=== PATIENT | female | born 1990 | race African-American/Black ===

== ENCOUNTER 2021-04-20 11:09 | Outpatient (REF) | payer MEDICAID, SELFPAY ==
[2021-04-20 11:25] LABS: COVID-19 Test Positive (Negative); IDNOW Serial# 16C4AD1C
== END 2021-04-20 11:10 | disposition home or self-care (01) ==
LOC: HO.LAB 11:09
PROVIDERS: Visit Provider Internal Medicine
DX: Z20.822 Contact with and (suspected) exposure to COVID-19 (principal)
CPT/HCPCS: 36415; 87635; C9803

== ENCOUNTER 2022-01-24 08:53 | Outpatient (REF) | payer MEDICAID, SELFPAY ==
[2022-01-24 10:23] LABS: Amylase 64 U/L (28-100); C Reactive Protein 1.28 mg/dL (< or = 0.50)
[2022-01-24 10:48] LABS: Erythrocyte Sedimentation Rate 14 MM/HR (0-20)
[2022-01-26 18:46] LABS: Thyroid Peroxidase Antibodies 1 IU/mL (<9)
== END 2022-01-24 08:54 | disposition home or self-care (01) ==
LOC: HO.LAB 08:53
PROVIDERS: PCP Internal Medicine; Visit Provider Internal Medicine
DX: E21.3 Hyperparathyroidism, unspecified (principal); K11.8 Other diseases of salivary glands
CPT/HCPCS: 36415; 82150; 82550; 85652; 86140; 86376

== ENCOUNTER 2022-03-03 11:55 | Emergency (ER) | payer MEDICAID, SELFPAY ==
[2022-03-03 11:58] VITALS: BP 178/108; PULSE 98; RESP 16; TEMP 36.7; O2SAT 98; BMI 38.6
[2022-03-03 12:06] VITALS: O2SAT 98
[2022-03-03 12:15] LABS: Strep A Nucleic Acid Negative (Negative)
--- NOTE | 2022-03-03 12:17 | ED_ITS ---
HPI - URI/Sore Throat General Chief Complaint: Upper Respiratory Symptoms Stated Complaint: sore throat Time Seen by Provider: 03/03/22 12:05 Source: patient Mode of arrival: ambulatory Limitations: no limitations History of Present Illness HPI Narrative: 32-year-old female here with 3 days of cough, sore throat, tactile temps. No difficulty breathing, chest pain, shortness of breath, vomiting, diarrhea, skin rash, headache, neck pain or neck stiffness. Patient took multiple COVID test at home which have been negative MD elicited complaint: fever, cough and sore throat Related Data Allergies Allergy/AdvReac Type Severity Reaction Status Date / Time clindamycin [CLINDAMYCIN] Allergy Intermediate HIVES Unverified 01/21/20 16:12 Clindamycin Allergy Unknown Hives Uncoded 05/11/19 00:00 Review of Systems Review of Systems: Yes all other systems are reviewed and are negative Constitutional: Constitutional: Reports no additional constitutional complaints, Denies body ache(s), Denies chills, Reports fever(s), Denies headache(s) and Denies weakness Eyes: Eyes: Reports no additional eye complaints and Denies change in vision ENT: Reports system reviewed and no additional complaints, except as documented, Denies dizziness, Denies headache(s), Denies nasal congestion, Denies nasal discharge, Denies neck pain and Reports sore throat Cardiovascular: Cardiovascular: Reports no additional cardiovascular complaints, Denies chest pain, Denies leg edema and Denies dyspnea Respiratory: Respiratory: Reports no additional respiratory complaints, Reports cough and Denies dyspnea Gastrointestinal: Gastrointestinal: Reports no additional gastrointestinal complaints, Denies abdominal pain, Denies diarrhea, Denies nausea and Denies vomiting Genitourinary: Genitourinary: Reports no additional female genitourinary complaints and Denies urinary incontinence Musculoskeletal: Musculoskeletal: Reports no additional musculoskeletal complaints, Denies back pain, Denies arthralgias, Denies joint swelling, Denies neck pain, Denies numbness and Denies tingling Integumentary/Breasts: Skin/Breast: Reports system reviewed and no additional complaints, except as docu and Denies rash Neurologic: Reports system reviewed and no additional complaints, except as documented, Denies Abnormal speech present, Denies dizziness, Denies headache(s), Denies numbness, Denies tingling and Denies weakness PMF Past Medical History Attestation statement: The following information was validated with the patient. Source: old records reviewed and nursing notes reviewed Social History Social History Alcohol intake: current Alcohol intake frequency: holidays/special occasions only Patient Tobacco Use Status: Never used Tobacco Use of substances other than those prescribed or required for medical reasons: No Advance Directives: No Advance Directives Information Provided: No Physical Exam Vital Signs: Vital Signs: Last Vital Signs Temp 98.0 F 03/03/22 11:58 Pulse 98 03/03/22 11:58 Resp 16 03/03/22 11:58 BP 178/108 H 03/03/22 11:58 Pulse Ox 98 03/03/22 12:06 O2 Del Method 03/03/22 12:06 BMI result Body Mass Index 38.6 Const: General: cooperative, healthy appearing, comfortable and no acute distress Orientation/consciousness: patient oriented x3 Limitations: no limitations HEENT: Head: Yes normal to inspection Ears: hearing grossly normal bilaterally and TM's normal bilaterally General nose exam: Normal external nose present Face and sinus: Yes normal facial exam Mouth: Normal oral and palatal mucosa present Throat: Yes posterior oropharynx normal, Yes tonsils normal and Yes uvula midline Eyes: General: appearance normal, both eyes and all related structures Pupils: Equal, round and reactive pupils present Neck: Neck: Yes normal visual inspection, Yes full ROM, Yes no lymphadenopathy and Yes no meningeal signs Chest: Chest palpation & inspection: normal inspection of the chest Resp: Effort & Inspection: normal respiratory effort Auscultation: clear to auscultation bilaterally Cardio: Rate: regular rate Rhythm: regular rhythm Peripheral pulses: Peripheral pulses 2+ throughout GI: Inspection: Yes normal to inspection Palpation (GI): Soft to palpation and nontender Auscultation: normal bowel sounds Back/Spine/Pelvis: Thoracic/Lumbar Spine: thoracic and lumbar spine normal to inspection Skin: General skin exam: no rashes or lesions noted Neuro: General: patient oriented x3, no meningeal signs, no focal motor deficits and normal sensation to monofilament Cranial nerves: Yes Equal, r ound and reactive pupils present Cognition (Neuro): normal cognition Speech: No Abnormal speech present Gait exam (Neuro): Normal gait present Motor exam (neuro): 5/5 motor strength present throughout Extrem: General: Yes normal to inspection Course Course Course Narrative: Testing for strep, COVID, flu, RSV are negative Likely viral syndrome Exam not consistent with strep pharyngitis Patient was discharged prior to results being resulted. I did call and speak to her over the phone. She was informed of the results. Reviewed worrisome signs and symptoms of when to return to the emergency room. Comfortable plan for discharge home. MDM - URI/Sore Throat MDM Narrative Medical decision making narrative: 32-year-old female here with cough, fever, sore throat for 3 days. Will send testing for strep, COVID, flu, RSV Medical Records Attestation: I reviewed the patient's medical records. Lab Data Attestation: I reviewed the patient's lab results. Labs: Lab Results 03/03/22 03/03/22 Range/Units 12:00 12:18 Influenza Type A (PCR) NEGATIVE (Negative) Influenza Type B (PCR) NEGATIVE (Negative) RSV RNA Qual (PCR) NEGATIVE (Negative) SARS-CoV-2 RNA (RT-PCR) NEGATIVE (Negative) S. pyogenes GrpA ARLENE Negative (Negative) Discharge Plan Discharge Clinical Impression: Viral infection Patient Disposition: Home, Self-Care Instructions: Viral Syndrome (ED) Additional Instructions: I will call you today with your results Take Motrin or Tylenol for pain or fever Increase fluids, rest Return for any worsening symptoms Referrals: Gage Diallo MD [Primary Care Provider] - 5 days (may return sooner if feeling improved ) Stand Alone Forms: Work/School Release Interventions: ED Discharge Assessment Last Done: 03/03/22 12:27 Discharge Date/Time: 03/03/22 12:27
[2022-03-03 13:02] LABS: Influenza A PCR NEGATIVE (Negative); Influenza B PCR NEGATIVE (Negative); Resp Syncy Virus RNA Qual PCR NEGATIVE (Negative); SARS COV2 PCR INHOUSE NEGATIVE (Negative)
== END 2022-03-03 12:27 | disposition home or self-care (01) ==
LOC: HO.ED 12:26
PROVIDERS: Nurse Practitioner Family; Emergency Provider Emergency Medicine; PCP Internal Medicine
DX: B34.9 Viral infection, unspecified (principal); Z79.899 Other long term (current) drug therapy; Z20.822 Contact with and (suspected) exposure to COVID-19
CPT/HCPCS: 0241U; 36415; 87651; 99283; 99284

== ENCOUNTER 2022-03-07 14:17 | Outpatient (REF) | payer MEDICAID, SELFPAY ==
--- NOTE | ~2022-03-07 | US_ITS ---
EXAMINATION: US THYROID CLINICAL INFORMATION: Hyperparathyroidism, enlarged thyroid. COMPARISON: None TECHNIQUE: Linear transducer grayscale and color Doppler examination with attention to the region of the thyroid. FINDINGS: SIZE: Measurements of the thyroid lobes and nodules are given in sagittal, anteroposterior and transverse dimensions respectively. Right Thyroid Lobe: 4.2 x 1.5 x 1.5 cm, volume 4.9 mL. Parenchyma: The gland echotexture is homogeneous. Thyroid vascularity is normal. Left Thyroid Lobe: 5.2 x 1.5 x 1.4 cm, volume 5.6 mL. Parenchyma: The gland echotexture is homogeneous. Thyroid vascularity is normal. Isthmus: 0.4 cm in maximum AP dimension. No focal thyroid nodule is seen. NODES: No lymphadenopathy is seen in the tissue surrounding the thyroid gland. US/US thyroid IMPRESSION: Normal thyroid ultrasound. No parathyroid adenoma identified.
== END 2022-03-07 14:18 | disposition home or self-care (01) ==
LOC: HO.US 14:17
PROVIDERS: Visit Provider Internal Medicine
DX: E21.3 Hyperparathyroidism, unspecified (principal)
CPT/HCPCS: 76536

== ENCOUNTER 2022-10-23 07:40 | Emergency (ER) | payer MEDICAID, SELFPAY ==
--- NOTE | ~2022-10-23 | XR_ITS ---
EXAMINATION: XR ANKLE, RIGHT CLINICAL INFORMATION: Pain post fall COMPARISON: None available. TECHNIQUE: AP, lateral, and mortise views of the right ankle. FINDINGS: Bone alignment is normal. No fracture or dislocation. Normal ankle mortise. Mild lateral soft tissue swelling. Small calcaneal spurs. XR/XR ankle RT min 3V IMPRESSION: Mild lateral soft tissue swelling. No fracture or dislocation.
[2022-10-23 07:46] VITALS: BP 150/97; PULSE 87; RESP 16; TEMP 36.9; O2SAT 99; BMI 39.0
--- NOTE | 2022-10-23 08:11 | ED_ITS ---
HPI - Extremity Injury (Lower) General Chief Complaint: Extremity Injury, Lower Stated Complaint: fall, ankle pain Time Seen by Provider: 10/23/22 07:59 Source: patient Mode of arrival: ambulatory Limitations: no limitations History of Present Illness HPI Narrative: 32 year old female with a history significant for hypertension and previous right ankle fracture presents to the emergency department today s/p mechanical fall down 3 steps last night, now complaining of right ankle pain and swelling. Patient states she doing laundry when her pants got caught on a nail, causing her to fall down 3 steps to her basement, landing on her right ankle/ foot. She was able to ambulate with pain post fall. No radiation of pain. Additionally she hit the right side of her back however denies back pain, neck pain. Denies head strike or LOC. Denies numbness, tingling, or weakness to the RLE. She took 400mg of Ibuprofen prio to arrival for pain. Not on anticoagulation. Related Data Allergies Allergy/AdvReac Type Severity Reaction Status Date / Time clindamycin [CLINDAMYCIN] Allergy Intermediate HIVES Verified 10/23/22 07:47 Clindamycin Allergy Unknown Hives Uncoded 10/23/22 07:47 Review of Systems Review of Systems: CONSTITUTIONAL: Denies weight loss, fever and chills. RESPIRATORY: Denies SOB and cough. CV: Denies palpitations no CP. GI: Denies abdominal pain, nausea, vomiting and diarrhea. MSK: Denies myalgia + right ankle pain SKIN: Denies rash and pruritus. NEUROLOGICAL: Denies headache and syncope. CONSTITUTIONAL: Denies weight loss, fever and chills. HEENT: Denies changes in vision and hearing. RESPIRATORY: Denies SOB and cough. CV: Denies palpitations no CP. GI: Denies abdominal pain, nausea, vomiting and diarrhea. : Denies dysuria and urinary frequency. SKIN: Denies rash and pruritus. NEUROLOGICAL: Denies headache and syncope. PSYCHIATRIC: Denies recent changes in mood. Denies anxiety and depression. All other ROS are negative unless in HPI Yes all other systems are reviewed and are negative PMFSH Past Medical History Attestation statement: The following information was validated with the patient. Source: old records reviewed and nursing notes reviewed Social History Social History Alcohol intake: current Alcohol intake frequency: holidays/special occasions only Patient Tobacco Use Status: Never used Tobacco Advance Directives: No Advance Directives Information Provided: Yes Patient : No (tubal ligation) Physical Exam Vital Signs: Vital Signs: Last Vital Signs Temp 98.4 F 10/23/22 07:46 Pulse 87 10/23/22 07:46 Resp 16 10/23/22 07:46 BP 150/97 H 10/23/22 07:46 Pulse Ox 99 10/23/22 07:46 O2 Del Method Room Air 10/23/22 07:46 BMI result Body Mass Index 39.0 Vital signs notable for elevated blood pressure likely secondary to pain. GEN: Well developed, no acute distress, alert, oriented HEENT: Normocephalic, atraumatic, normal external ears, nose appears normal Eyes: Normal to appearance Neck: Supple, no lymphadenopathy Respiratory: Talks in complete sentences, no respiratory distress Extremities: No clubbing, cyanosis, or ecchymosis.. No obvious deformity. Diffuse edema noted to the right ankle, tender to palpation over the lateral malleolus. Neurovascularly intact, 2+ dorsal pedis and posterior tibialis pulse, less than 2nd capillary refill Neurologic: No focal neurologic deficits, cranial nerves 2-12 intact, gait normal Skin: No rash Course Course Course Narrative: Presents with 1 day of right ankle pain and swelling. Patient stable, tenderness and swelling over the lateral malleolus, neurovascularly intact distally. Xrays showed no evidence of acute fracture. Discussed imaging reslults with patient along with RICE therapy. Patient provided with an air cast and crutches along with a referral for outpatient ortho followup. Patient expresses understanding and agreement to the plan. I feel that the patient is safe and stable for discharge. Medical Decision Making Medical Decision Making MDM Narrative: 32 year old female presents s/p mechanical fall with right ankle pain/ swelling. Vital signs notable for elevated bp likely secondary to pain. Physical exam significant for diffuse edema of the right ankle and tenderness to palpation over the lateral malleolus. Neurovascularly intact distally. Clinical suspicion for ankle sprain/ strain vs fracture Low suspicion for compartment syndrome, neurovascular injury Low suspicion for intracranial hemorrhage as patient denies head strike, no focal deficits. Plan: pain control, ankle radiographs, re-evaluate Differential Diagnosis Differential Diagnoses: The differential diagnosis associated with the pres entation includes ankle sprain, strain, fracture, compartment syndrome, neurovascular injury Independent Interpretation I performed an independent interpretation of an: Plain X-Ray (Right ankle- no acute traumatic injury) Radiology Impression Discussion of test interpretation with radiology: I have reviewed the radiologist's reading. Radiologist Impression: XR ankle RT min 3V IMPRESSION: Mild lateral soft tissue swelling. No fracture or dislocation. Prescription Management I considered prescription management with: Pain Medication Critical Care Time Critical Care Time Critical Care Time: No Discharge Plan Discharge Clinical Impression: Ankle sprain and strain Patient Disposition: Home, Self-Care Instructions: Ankle Sprain (ED), Crutch Instructions (ED), Ankle Stirrup Splint (ED), R.I.C.E. Treatment (ED) Additional Instructions: The xray of your right ankle is reassuring and does not show any evidence of fracture. The results of your xray have been discussed with you. Take tylenol as needed for pain. Rest, ice, and elevate the ankle to help with swelling and pain. Please follow up with orthopedics in one week. Referral has been provided. Referrals: Imelda Nava PA-C [Phys[facility] [employer] [facility]] - (right ankle pain/ swelling s/p mechanical fall, no evidence of acute fracture) Stand Alone Forms: Work/School Release
== END 2022-10-23 09:13 | disposition home or self-care (01) ==
PROVIDERS: Emergency Provider Emergency Medicine; PCP Internal Medicine
DX: S93.401A Sprain of unspecified ligament of right ankle, initial encounter (principal); M25.571 Pain in right ankle and joints of right foot; M25.471 Effusion, right ankle; W10.9XXA Fall (on) (from) unspecified stairs and steps, initial encounter; Y93.9 Activity, unspecified; Y92.9 Unspecified place or not applicable; Y99.9 Unspecified external cause status
CPT/HCPCS: 29515; 73610; 99283; 99284

== ENCOUNTER 2023-05-29 11:14 | Outpatient (REF) | payer MEDICAID, SELFPAY ==
[2023-05-29 13:01] LABS: MANUAL DIFF FLAG NO
[2023-05-29 13:04] LABS: Basophils Percent Auto 0.3 % (0-2); Eosinophils Absolute Auto 0.1 X10*3/uL (0.0-0.4); Eosinophils Percent Auto 0.5 % (0-4); Hematocrit 36.7 % (37.0-47.0); Imm Gran Abs Auto 0.01 X10*3/uL (0.00-0.03); Imm Gran Pct Auto 0.1 % (0.0-0.4); Lymphocytes Absolute Auto 3.2 X10*3/uL (1.2-4.9); Lymphocytes Percent Auto 30.3 % (20-40); Mean Corpuscular Hemoglobin 22.7 pg (27.0-33.0); Mean Corpuscular Volume 75.8 fL (80.0-98.0); Mean Platelet Volume 9.1 fL (9.4-12.3); Monocytes Absolute Auto 0.5 X10*3/uL (0.1-1.2); Monocytes Percent Auto 4.7 % (2-11); Neutrophils Absolute Auto 6.7 x10*3/uL (2.0-8.3); Neutrophils Percent Auto 64.1 % (45-73); Platelet Count 433 X10*3/uL (160-400); Red Blood Count 4.84 X10*6/uL (4.20-5.50); White Blood Count 10.4 X10*3/uL (4.8-10.8)
[2023-05-29 13:41] LABS: Alanine Aminotransferase 16 U/L (0-31); Albumin Level 4.2 g/dL (3.5-5.0); Alkaline Phosphatase 62 U/L (39-117); Anion Gap 13 (12-20); Aspartate Amino Transferase 18 U/L (5-31); Bilirubin Total 0.3 mg/dL (0.0-1.0); Blood Urea Nitrogen 10 mg/dL (9-16); Calcium 9.2 mg/dL (8.4-10.2); Carbon Dioxide 23 mmol/L (22-29); Chloride 106 mmol/L (96-108); Cholesterol 129 mg/dL (<200); Estimated Glomerular Filt Rate > 60; Glucose Random 102 mg/dL (60-115); Sodium 138 mmol/L (135-145); Total Protein 7.8 g/dL (6.5-8.0)
[2023-05-29 14:08] LABS: Vitamin B12 1429 pg/mL (200-900)
[2023-05-31 22:53] LABS: TS Negative Control Passed; TS Panel A 0; TS Panel B 1; TS Positive Control Passed; TSpotTB Negative (Negative)
== END 2023-05-29 11:15 | disposition home or self-care (01) ==
LOC: HO.10HDL 11:14
PROVIDERS: Visit Provider Internal Medicine
DX: Z02.1 Encounter for pre-employment examination (principal); I10 Essential (primary) hypertension; K21.9 Gastro-esophageal reflux disease without esophagitis; Z98.84 Bariatric surgery status
CPT/HCPCS: 36415; 80053; 82465; 82607; 85025; 86481

== ENCOUNTER 2024-12-25 15:19 | Outpatient (AMB) | payer OTHER, SELFPAY ==
--- OUTSIDE RECORDS SUMMARY | 2024-12-25 15:22 | XMS_ITS | Clinical Summary ---
Author Organization [facility] Address [address] [place] [phone] Phone Care Team Providers Care Skiver Counter Name Role Phone Gage Diallo MD Primary Care Provider Allergies Active Allergy Reactions Criticality Noted Date Comments Clindamycin Hcl Hives 01/15/2022 Medications acetaminophen (TYLENOL) 325 mg tablet Take 650 mg by mouth every 6 (six) hours as needed for mild pain. Active losartan (COZAAR) 25 MG tablet Take 50 mg by mouth daily. Active hydrALAZINE (APRESOLINE) 10 MG tablet Take 20 tablets by mouth 2 (two) times a day. 4 Active calcium carbonate 500 mg (200 mg elemental) chewable tablet Take 1 tablet by mouth daily as needed for heartburn. Active pantoprazole (PROTONIX) 40 MG tabletIndication s:Gastroesophage al reflux disease without esophagitis Take 1 tablet (40 mg total) by mouth daily. 30 tablet 6 4 Active cholecalciferol (VITAMIN D3) 25 MCG (1,000 unit) tablet Take 1,000 Units by mouth daily. Active vitamin A 11408 UNIT capsule TAKE 2 CAPSULES (20,000 UNITS TOTAL) BY MOUTH DAILY. 60 capsule 4 Active Active Problems Problem Noted Date Diagnosed Date Preoperative examination 08/30/2023 Class 1 obesity due to exces s calories without serious comorbidity with body mass index (BMI) of 34.0 to 34.9 in adult 08/30/2023 Assessment & Plan (08/30/2023 2:25 PM EDT): This is a 33-year-old woman who is now doing the medical component the program towards weight loss. The patient had a sleeve gastrectomy in April 2019. She is recently lost almost 40 pounds since February on her own. She restarted the program today. She does report having heartburn but has never had any other antireflux medication besides Nexium. I have discontinued her Nexium and ordered pantoprazole instead. The patient is not eating regularly she is skipping several meals. Have asked her to avoid skipping meals and to consume 70 to 80 g of protein daily by adding 2 protein shakes to her current meals. She is not eating enough protein and I have asked her to eat chicken or fish 2 to 4 ounces as she is able to at least once a day. I have also asked her to exercise at least 3 times a week for 45 minutes encompassing both cardiovascular exercise and strength training. I have ordered her annual nutrition labs and she will have those drawn today. She will follow-up with me again in 4 weeks timeframe. Patient is not a candidate for any bariatric revision at this time. She will continue to work through the medical component of the program in an effort to lose the residual weight. She has a personal goal of 150 to 160 pounds for weight. BMI 39.0-39.9,adult 03/12/2022 Assessment & Plan (04/09/2022 11:46 AM EST): This is a 32-year-old lady who underwent a laparoscopic sleeve gastrectomy with poor weight loss and poor follow-up postoperatively. Patient had surgery with an outside surgeon and facility and was lost to follow-up. Patient is now doing well with weight loss over the past month and she is following the eating plan and has started exercise plan. She is interested in conversion of her sleeve gastrectomy to Yahaira-en-Y gastric bypass. The patient has completed blood work but has not done chest x- ray or EKG as I did not order them yet. The patient has been seeing the dietitian but needs to reschedule her last appointment. She also has not had an appointment with behavioral health as of yet as I was not sure that the patient was going to be compliant with the medical component of the program. Patient is now doing well following the eating plan is being compliant over the past month. I will follow- up with her again in 4 weeks timeframe. If the patient continues to be compliant we will plan to perform a conversion of her sleeve gastrectomy to a Yahaira-en-Y gastric bypass to help with the patient's reflux and help with renewed weight loss. Patient will continue current eating plan although she will avoid using kind bars as a protein bar source. She will continue current water intake and increase resistance training in her workouts. She will continue current medications as reviewed. She is not stable and is considered obese. Assessment & Plan (03/12/2022 10:45 AM EST): This is a 32-year-old lady who underwent sleeve gastrectomy about 3 years ago and has done relatively poorly with weight loss. She has been in our program for about 2 months without any significant weight loss and only has gained weight during the program. She has not been following the eating plan that was given to her and has not added formalized exercise which was recommended. She is drinking plenty of water. I went over the eating plan again with the patient and asked her to stick strictly to the 2 protein meal replacements per day and 3 to 4 ounces of proteins with vegetables and 1/2 cup of carbohydrate once per day. I have asked the patient to get up earlier at 5:30 AM to add 40 minutes of exercise 4 times a week of the cardiovascular nature. I have told the patient that she is currently not a candidate for any revisional surgery as she is not following the plan that has been set for her. She would need to lose 22 pounds from this current weight of 223 noted to be a surgical weight loss candidate even if she was following the weight management program guidelines. I currently do not believe that this patient needs a revisional surgery I believe that she needs to institute the lifestyle changes that have been given to her. I believe her reflux would improve if she was eating healthier and exercising and losing the weight by lifestyle changes. In an effort to help the patient be more motivated we will see her every 2 weeks alternating between myself and the dietitian. I have asked the patient to take our 5 nutrition classes as a refresher and answer the questions. I have also required that she attends our support groups on a monthly basis. I will see the patient again in 4 weeks timeframe she will follow-up with the dietitian in 2 weeks. She is not stable is considered morbidly obese. She will continue current medications as reviewed. Status post sleeve gastrectomy 03/12/2022 Gastroesophageal reflux disease without esophagi tis 02/12/2022 Class 1 obesity due to exces s calories without serious comorbidity with body mass index (BMI) of 33.0 to 33.9 in adult 01/15/2022 Assessment & Plan (09/27/2023 3:25 PM EDT): This is a 33-year-old woman who is doing well during the medical component the program. She has a history of sleeve gastrectomy and is now back on track in terms of weight loss. She will continue to increase her water intake to a goal of 64 ounces. She should continue to increase her intensity and frequency of exercise. She will increase the amount of actual food that she is eating and decrease amount of shakes over the course of time. She will continue her medications as reviewed. She is not stable and is considered obese. She will follow-up with me again in 6 weeks timeframe. Assessment & Plan (02/12/2022 10:24 AM EDT): This is a 31-year-old lady who underwent a laparoscopic sleeve gastrectomy several years ago with an outside bariatric surgeon. She had relatively poor weight loss after having weight loss surgery as she did not have great follow-up postoperatively. The patient now starts this program in an effort to have renewed weight loss. She is having reflux which is not well controlled. I have ordered Nexium 40 mg to be taken on a daily basis. Patient was told to avoid eating for 2 to 3 hours prior to bedtime and to elevate the head of her bed. Patient was told to continue current water intake. She will increase intensity of her exercise and frequency. I have asked her to exercise at least 4 times a week for 30 minutes and to use the resistance training or hill training modality on the treadmill and bike or interval training. I will follow-up with her again in 4 weeks timeframe. She is not stable is considered obese. She will follow-up with her primary care doctor regarding her blood pressure and we will discuss how well Nexium is helping her with her reflux when she follows up. Patient will continue current medications as reviewed. Assessment & Plan (01/15/2022 12:03 PM EDT): This is a 31-year-old lady who underwent a laparoscopic sleeve gastrectomy almost 3 years ago and who has had significant weight gain in the past year's timeframe since she has stopped following up with her bariatric surgeon. Patient would like to restart weight loss but would like to start at a different program. Patient believes she still has good restriction but has fallen off track in terms of her lifestyle changes. I have provided her with a new eating plan which will include 2 protein meal replacements such as Faroese yogurt, cottage cheese, protein shake, or protein bar at 9 AM and 3 PM daily. At 12 PM and 6 PM daily the patient will consume 3 to 4 ounces of protein with 4 ounces of vegetables or small salad with not more than 2 tablespoons of a Montenegrin or vinaigrette dressing. At the 6 PM meal the patient may have half cup of carbohydrate. Patient may have an optional piece of fruit at 8 PM. She should stop eating after 8 PM. Patient was encouraged to continue to exercise at the gym at least 4 times a week for 40 minutes. She was also told to change up her cardiovascular workouts every 3 weeks to prevent a stall and weight loss. The patient will continue to consume full 64 ounces of water on a daily basis. She will discontinue use of any beverages with calories. I have ordered blood work to check her vitamin levels and nutritional labs. The patient will follow up with a dietitian for consultation in 2 weeks and follow-up with me again in 4 weeks timeframe. Patient will continue current medications as reviewed. She is not stable and is considered obese. I spent 57 minutes with this patient which included documentation. Intestinal malabsorption following gastrectomy 0 01/15/2022 Family History Medical History Relation Comments Lung cancer Father Lung cancer Maternal Grandfather Cerebral aneurysm Maternal Grandmother Lung disease Mother Pulmonary embolism Mother Diabetes type II Paternal Grandmother Hypertension Paternal Grandmother Stroke Paternal Grandmother Relation Status Comments Brother Alive Father Maternal Grandfather Maternal Grandmother Mother Paternal Grandfather Paternal Grandmother Social History Tobacco Use Types Packs/Day Years Used Date Smoking Tobacco: Never Smokeless Tobacco: Never Tobacco Cessation:Counseling Given: Not Answered Alcohol Use Standard Drinks/Week Comments Yes 0 (1 standard drink = 0.6 oz pur e alcohol) 2 wine coolers per month Education Answer Date Recorded Are you interested in more education? Not on marcos e 09/01/2022 Are you concerned about learning? Not on file 09/01/2022 No 09/01/2022 No 09/01/2022 Digital Access Answer Date Recorded No 10/02/2022 No 10/02/2022 Reliable internet access at home? Not on file 10/02/2022 Device with a working camera? 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 Not on file Not on file Not on file Last Filed Vital Signs Vital Sign Reading Time Taken Comments Blood Pressure 130/90 09/27/2023 3:00 PM EDT Pulse 102 09/27/2023 3:00 PM EDT Temperature 36.9 C (98.4 F) 09/27/2023 3:00 PM EDT Respiratory Rate - - Oxygen Saturation 99% 09/27/2023 3:00 PM EDT Inhaled Oxygen Concentration - - Weight 84.6 kg (186 lb 6.4 oz) 09/27/2023 3:00 P M EDT Height 160 cm (5' 2.99 ) 09/27/2023 3:00 PM EDT Body Mass Index 33.03 09/27/2023 3:00 PM EDT Plan of Treatment Health Maintenance Due Date Last Done Comments Adult Td,Tdap Booster 1989 DEPRESSION SCREENING 2001 HEPATITIS C SCREENING 2007 HIV ONE-TIME SCREENING (18-6 5 YEARS) 2007 PAP SMEAR 2010 COVID-19 VACCINE (2023-2 5 season) 2024 CREATININE LEVEL 08/29/2024 08/30/2023, 01/15/2022 POTASSIUM LEVEL 08/29/2024 08/30/2023, 01/15/2022 SCREENING FOR DIABETES 08/29/2026 , 08/30/2023 SMOKING STATUS SCREENING (On ce After 26 Yrs) Completed 09/27/2023 HEPATITIS A VACCINES Aged Out No long er eligible based on patient's age to complete this topic HIB VACCINES Aged Out No longer eligi ble based on patient's age to complete this topic MENINGOCOCCAL VACCINES (ACWY) Aged Out No longer eligible based on patient's age to complete this topic MENINGOCOCCAL VACCINES (B) Aged Out N o longer eligible based on patient's age to complete this topic PNEUMOCOCCAL VACCINES (0-49 years) Aged Out No longer eligible b ased on patient's age to complete this topic Medical Devices Not on file Procedures Procedure Name Priority Date/Time Associated Diagnosis Comments COMPREHENSIVE METABOLIC PANEL Routine 08/30/2023 3:00 PM EDT Intestinal malabsorption following gastrectomy from Last 3 Months or Most Recently Relevant to Health Maintenance Results * Comprehensive metabolic panel (08/30/2023 3:00 PM EDT) SODIUM 142 133 - 146 mmol/L [facility] POTASSIUM 3.8 3.3 - 5.1 mmol/L [facility] CHLORIDE 106 96 - 108 mmol/L [facility] CO2 21 21 - 35 mmol/L [facility] BUN 8 6 - 19 mg/dL [facility] CREATININE 0.60 0.5 - 1.5 mg/dL [facility] GLUCOSE 93 70 - 99 mg/dL [facility] ALBUMIN 4.3 3.9 - 4.8 g/dL [facility] TOTAL PROTEIN 7.6 6.5 - 8.0 g/dL [facility] CALCIUM 9.1 8.4 - 10.3 mg/dL [facility] ALKALINE PHOSPHATASE 69 39 - 117 U/L [facility] TOTAL BILIRUBIN 0.5 0.0 - 1.2 mg/dL [facility] AST 20 0 - 37 U/L [facility] ALT <5 0 - 40 U/L [facility] GLOBULIN 3.3 1 - 4.8 g/dL [facility] EGFR >120 >59 mL/min/1.7 3m2 [facility] Comment:Estimated glomerular filtration rate calculated using the CKD-EPI refit equation. ANION GAP 19 10 - 20 mmol/L [facility] Blood 08/30/2023 3:00 PM EDT 08/30/2023 3:05 PM EDT Marcella Simmons MD LAB BLOOD ORDERABLES Final Result [facility] [address] [place] [id number] from Last 3 Months or Most Recently Relevant to Health Maintenance Insurance [address] [address] [address] [place] [address] [place] [address] [facility] Care Teams Skiver Counter Relationship Specialty Start Date End Date Gage Diallo MD [address] [place] [address] [place] [id number] PCP - General Internal Medicine 12/26/21 Additional Source Comments The information contained in this document represents components of the legal health record. It is not the complete legal health record.[facility]
--- NOTE | 2024-12-25 15:24 | A.OFFPC_ITS ---
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 Accompanied by: Self / Same As Patient Allergies clindamycin (CLINDAMYCIN) Allergy (Intermediate, Verified 12/25/24 15:24) HIVES Clindamycin Allergy (Unknown, Uncoded 10/23/22 07:47) Hives Medication List - Last Reconciled 12/25/24 by LILIANE Garcia trazodone 50 mg PO BEDTIME PRN Tobacco use date assessed: 12/25/24 HPI HPI Comments History of Present Illness Details 34-year-old female with history of gener alized anxiety disorder, ADHD, severe obesity with BMI greater than 36 presents to the office today for management of multiple complaints and for annual physical exam as well as to establish care. She currently lives at home with her and 4 children. She is currently employed and does enjoy her job endorses a lot of work-related stress. She does not drink any alcohol. No history of cigarette smoking. No drugs or marijuana. Concerns: Severe obesity-BMI greater than 36. Did undergo gastric sleeve ectomy 6 years ago. She had been doing well but then began gaining weight again and has since been gaining and losing weight. Reports she feels stuck. She most recently saw Dr. Simmons about 1.5 years ago. Should be interested in seeing weight management again ADHD-had been on Ritalin as a child but has not been on medications in quite katlyn e time. She endorses difficulty with concentration. She is irritable and has difficulty remembering things. Tells me that she will walk into a room and forget why she is there and has difficulty completing tasks Insomnia-she has been taking melatonin but would not keep her asleep. She does go to bed around 11:00 but though some nights she is able to fall asleep often feels her body is restless Swelling right ankle-history of ORIF years ago. Has noted swelling and pain ascending stairs. She is able to ambulate Menorrhagia-reports very heavy periods, will soak through a tampon in 1.5 hours. She will bleed for 9 days. Does not have an established lens maker. Last Pap smear was at [facility] last year Severe obestiy s/p sleeve 6 years ago. Had been going fine but started gaining weight again. Has been losing and gaining weight, feels stuck. Active walking and at the gym. Not overeating, but does eat the wrong things per her report. Had been following with Dr. Jose Difficulty with concentration. Irritable, difficulty remembering things. Walks into room and forgets why she is there. Not completing tasks. Insomnia- taking melatonin would not keep her asleep. Goes to bed around 10-11 but has difficulty falling asleep, but body is restless. Good sleep hygeine. Health maintenance: Overdue for lens maker exam. Pap smear up-to-date ROS: General: No fevers, malaise, unintentional weight loss HEENT: No blurred vision, diplopia. No sore throat, nasal congestion, rhinorrhea, sinus pain, ear pain. No hearing loss Neck - no adenopathy Cardiovascular: No chest pain, palpitations, or leg edema Respiratory: No shortness of breath, wheezing, cough Breast: No pain, palpable lumps, nipple inversion GI: No dysphagia, odynophagia, globus sensation. No abdominal pain, nausea, vomiting, diarrhea, constipation, melena, hematochezia : No dysuria, hematuria, increased urinary frequency, decreased urinary output. 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 No SI Skin: No rashes or lesions EXAM: Constitutional - Awake and Alert, No apparent distress Eyes - PERRLA, EOMI. Anicteric Ears - external ears normal, canals clear, TMs intact and pearly méndez with good cone of light Nose- septum midline, nares clear, no sinus tenderness Mouth/throat- mucosa moist, tongue and uvula midline, no erythema/edema or tonsillar adenopathy. Neck-trachea midline, thyroid symmetric without palpable nodules, no adenopathy Cardiovascular - S1S2, RRR, No edema Respiratory - Normal lung expansion, Normal respiratory effort, No respiratory distress, CTA bilaterally Gastrointestinal - NT / ND; +BS; No rebound or guarding - No CVA tenderness Extremities - no calf tenderness bilaterally, no swelling Musculoskeletal - Normal inspection, normal ROM. Mild swelling of the right lateral malleolus Skin - Warm/Dry, no concerning lesions Neurological - Alert & oriented x3, CN II-XII in tact, 5/5 strength BUE and BLE, 2+ patellar reflexes, sensation intact Psychological - Appropriate affect [facility] Medical History (Updated 12/25/24 @ 18:51 by LILIANE Garcia) Work-related stress Generalized anxiety disorder ADHD Severe obesity Social History Alcohol intake: current Alcohol intake frequency: holidays/special occasions only Patient Tobacco Use Status: Never used Tobacco e-Cigarette/Vaping Use: Never Used Questionnaire PHQ-9 Over the last 2 weeks, how often have you been bothered by any of the following problems? 1. Little interest or pleasure in doing things: several days 2. Feeling down, depressed, or hopeless: several days 3. Trouble falling or staying asleep, or sleeping too much: more than half the days 4. Feeling tired or having little energy: more than half the days 5. Poor appetite or overeating: several days 6. Feeling bad about yourself - or that you are a failure or have let yourself or your family down: more than half the days 7. Trouble concentrating on things, such as reading the newspaper or watching television: nearly every day 8. Moving or speaking so slowly that other people could have noticed. Or the opposite - being so fidgety or restless that you have been moving around a lot more than usual: not at all 9. Thoughts that you would be better off or of hurting yourself in some way: not at all Total score: 12 Source: Developed by Drs. Vincent Roman, Aura Samaniego, Alistair Ta and colleagues, with an educational edd from [employer]. Thrive Questionnaire Date Thrive assessed: 12/25/24 I am a: Patient Within the past 12 months, did the food you bought not last and you didn't have the money to get more?: Never true Within the past 12 months, did you worry whether your food would run out before you got money to buy more?: Never true Do you have trouble paying for medicines?: No Do you have trouble getting transportation to medical appointments?: No Do you have trouble paying your heating and electricity bill?: No Do you have trouble taking care of your child, family member or friend?: No Do you have trouble with day-to-day activities such as bathing, preparing meals, shopping, managing finances, etc.?: No Are you currently unemployed and looking for a job?: No Are you interested in more education?: No THRIVE Score: 0 AUDIT C Alcohol Use Questionnaire (AUDIT-C) 1. How often do you have a drink containing alcohol?: Monthly or less 2. How many drinks containing alcohol do you have on a typical day when you are drinking?: 1 or 2 Total Score: 1 GABY-7 AMB Questionnaire GABY-7 Date GABY - 7 assessed: 12/25/24 Feeling nervous, anxious, or on edge: 2 = More than half the days Not being able to stop or control worryin = Several days Worrying too much about different things: 1 = Several days Trouble relaxin = More than half the days Being so restless that it is hard to sit still: 1 = Several days Becoming easily annoyed or irritable: 3 = Nearly every day Feeling afraid as if something awful might happen: 2 = More than half the days Total GABY-7 score (0-4 normal; 5-9 mild; 10-14 moderate; 15-21 severe): 12 Source: Developed by Drs. Vincent Roman, Aura Samaniego, Alistair Ta and colleagues, with an educational edd from [employer]. Physical exam (Primary Care) Vital Signs: Last Vital Signs Temp 98.1 F 12/25/24 15:28 Pulse 80 12/25/24 15:28 Resp 17 12/25/24 15:28 BP 130/80 12/25/24 15:28 Pulse Ox 98 12/25/24 15:28 Oxygen Delivery Method Room Air 12/25/24 15:28 BMI result Body Mass Index 36.5 Tobacco/Smoking Status: Tobacco use Status Tobacco use date assessed 12/25/24 12/25/24 15:31 Patient Tobacco Use Status Never used Tobacco 12/25/24 15:31 e-Cigarette/Vaping Use Never Used 12/25/24 15:31 PHQ-9: PHQ-9 Score PHQ-9: Total score 12 12/25/24 16:13 Thrive Assessment: Date of Thrive Assessment Date Thrive assessed 12/25/24 12/25/24 16:13 Coding Level of Care Code Est Pt Prev Care [id number]) Diagnoses Routine medical exam Z00.00 Severe obesity E66.01 ADHD F90.9 Menorrhagia N92.0 Assessment & Plan Assessment & Plan (1) Routine medical exam: Code(s): Z00.00 - Encounter for general adult medical examination without abnormal findings Category: Medical Plan: Plan as below (2) Severe obesity: Code(s): E66.01 - Morbid (severe) obesity due to excess calories Category: Medical Plan: Referred to weight management. Continue weight loss efforts (3) ADHD: Code(s): F90.9 - Attention-deficit hyperactivity disorder, unspecified type Category: Medical Plan: Question this is related to insomnia issues. Will trial trazodone. If symptoms persist, can consider additional medication (4) Menorrhagia: Code(s): N92.0 - Excessive and frequent menstruation with regular cycle Category: Medical Plan: Check CBC. Referred to lens maker Plan Routine screening labs as ordered below Continue with screening mammograms, Pap smears, colonoscopies Continue following for annual skin exams and use sun protection Annual eye exams Wear seat belt in car Recommend regular exercise and healthy diet Orders: Orders Basic Metabolic Panel Today E66.01 - Morbid (severe) obesity due to excess calories, F41.1 - Generalized anxiety disorder, F90.9 - Attention-deficit hyperactivity disorder, unspecified type, Z00.00 - Encounter for general adult medical examination without abnormal findings, Z56.6 - Other physical and mental strain related to work Complete Blood Count Auto Diff Today E66.01 - Morbid (severe) obesity due to excess calories, F41.1 - Generalized anxiety disorder, F90.9 - Attention-deficit hyperactivity disorder, unspecified type, Z00.00 - Encounter for general adult medical examination without abnormal findings, Z56.6 - Other physical and mental strain related to work Lipid Panel Today E66.01 - Morbid (severe) obesity due to excess calories, F41.1 - Generalized anxiety disorder, F90.9 - Attention-deficit hyperactivity disorder, unspecified type, Z00.00 - Encounter for general adult medical examination without abnormal findings, Z56.6 - Other physical and mental strain related to work Liver Panel Today E66.01 - Morbid (severe) obesity due to excess calories, F41.1 - Generalized anxiety disorder, F90.9 - Attention-deficit hyperactivity disorder, unspecified type, Z00.00 - Encounter for general adult medical examination without abnormal findings, Z56.6 - Other physical and mental strain related to work Hemoglobin A1c Today E66.01 - Morbid (severe) obesity due to excess calories, F41.1 - Generalized anxiety disorder, F90.9 - Attention-deficit hyperactivity disorder, unspecified type, Z00.00 - Encounter for general adult medical examination without abnormal findings, Z56.6 - Other physical and mental strain related to work TSH reflex Free T4 Today E66.01 - Morbid (severe) obesity due to excess calories, F41.1 - Generalized anxiety disorder, F90.9 - Attention-deficit hyperactivity disorder, unspecified type, Z00.00 - Encounter for general adult medical examination without abnormal findings, Z56.6 - Other physical and mental strain related to work Vitamin D 25-OH Total Today R51.9 - Headache, unspecified Vitamin B12 Today R51.9 - Headache, unspecified 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
[2024-12-25 15:28] VITALS: BP 130/80; PULSE 80; RESP 17; TEMP 36.7; O2SAT 98; BMI 36.5
== END 2024-12-25 16:08 | disposition home or self-care (01) ==
LOC: HO.HMCHD 15:20
PROVIDERS: PCP Internal Medicine; Visit Provider Physician Assistant
DX: Z00.00 Encounter for general adult medical examination without abnormal findings (principal); E66.01 Morbid (severe) obesity due to excess calories; F90.9 Attention-deficit hyperactivity disorder, unspecified type; N92.0 Excessive and frequent menstruation with regular cycle

== ENCOUNTER → 2024-12-25 15:19 | Outpatient (BNVA) | payer OTHER, SELFPAY | PROVIDERS: PCP Internal Medicine; Visit Provider Physician Assistant | DX: Z00.00 Encounter for general adult medical examination without abnormal findings (principal); E66.01 Morbid (severe) obesity due to excess calories; Z68.36 Body mass index [BMI] 36.0-36.9, adult; F90.9 Attention-deficit hyperactivity disorder, unspecified type; N92.0 Excessive and frequent menstruation with regular cycle; G47.00 Insomnia, unspecified; M25.471 Effusion, right ankle; Z13.39 Encounter for screening examination for other mental health and behavioral disorders; Z13.30 Encounter for screening examination for mental health and behavioral disorders, unspecified | CPT/HCPCS: 99395 ==

== ENCOUNTER 2025-01-22 08:04 | Outpatient (AMB) | payer OTHER, SELFPAY ==
--- OUTSIDE RECORDS SUMMARY | 2025-01-19 10:30 | XMS_ITS | Encounter Summary ---
Author Organization [facility] Address [address] [place] [address] [place] [address] Phone Care Team Providers Care Private Security Guard Name Role Phone Gage Diallo MD Primary Care Provider Reason for Visit * Consultation (Routine) - Pending Review Specialty Diagnoses / Procedures Referred By Marcos perez Referred To Contact General Surgery Procedures BARIATRIC FOLLOW UP Gage Diallo MD [address] [place] [address] [facility] [place] [address] Phone: tel: fax: Marcella Simmons MD [address] [place] [id number] Phone: tel: fax: [email or web address] Referral ID Status Reason Start Date Expiration Date V isits Requested Visits Authorized [id number] Pending Review 01/19/2025 6 1 Encounter Details Date Type Department Care Team (Latest Contact Info) Description 01/19/2025 10:30 AM EDT Office Visit [facility] General Surgical Care [address] [place] [address] [place] [address] Marcella Simmons MD [address] [place] [phone] [email or web address] Intestinal malabsorption following gastrectomy (Primary Dx); Class 2 severe obesity due to excess calories with serious comorbidity and body mass index (BMI) of 36.0 to 36.9 in adult; Gastroesophageal reflux disease without esophagitis; Status post laparoscopic sleeve gastrectomy; Bariatric surgery status Social History Tobacco Use Types Packs/Day Years [...] file Not on file Not on file documented as of this encounter Last Filed Vital Signs Vital Sign Reading Time Taken Comments Blood Pressure 146/98 01/19/2025 10:00 AM EDT Pulse 91 01/19/2025 10:00 AM EDT Temperature 36.6 C (97.8 F) 01/19/2025 10:00 AM EDT Respiratory Rate - - Oxygen Saturation 99% 01/19/2025 10:00 AM EDT Inhaled Oxygen Concentration - - Weight 92.4 kg (203 lb 9.6 oz) 01/19/2025 10:00 AM EDT Height 160 cm (5' 2.99 ) 01/19/2025 10:00 AM EDT Body Mass Index 36.08 01/19/2025 10:00 AM EDT documented in this encounter Progress Notes * Marcella Simmons MD - 01/19/2025 10:30 AM EDT Subjective: Patient ID: This is a 34-year-old patient who has a history of laparoscopic sleeve gastrectomy at [facility] with another bariatric surgeon for weight management. Patient was last seen September 2023 in our program and was 186 pounds. Patient has gained 17.2 pounds since the last visit September 2023. Patient is consuming 120-160 ounces of water on a daily basis. They are exercising 3-4 times weekly by performing 30-45 mins of strength training with weight training followed by 15 mins of cardio vascular exercise on stationary bike or treadmill . She is not taking the bariatric vitamin. They deny any fever, chills, shortness of breath, chest pain. 24-hour dietary recall: 8 am: 3 hard boiled eggs 1 pm: chicken salad on 2 lettuce wrap 6 pm: salmon with broccoli and cauliflower rice Vitals: 01/19/25 1000 BP: (!) 146/98 Pulse: 91 Temp: 36.6 ??C (97.8 ??F) SpO2: 99% Height 5 foot 3 inches Weight 203.6 pounds Fat percentage 45.7% Fat mass 93 pounds Fat-free mass 110.6 pounds Muscle mass 105 pounds BMR 1580 Visceral fat 10 BMI 36.1 Review of Systems Constitutional: Negative for chills, fatigue and fever. Eyes: Negative for wears glasses. Respiratory: Negative for cough, shortness of breath and wheezing. Cardiovascular: Negative for chest pain and leg swelling. Gastrointestinal: Positive for heartburn. Negative for abdominal distention, abdominal pain, constipation, diarrhea, nausea and vomiting. Genitourinary: Negative for problems with urination and dysuria. Psychiatric/Behavioral: Positive for dysphoric mood and sleep disturbance. The patient is nervous/anxious. Musculoskeletal: Negative for joint pain and back pain. Objective: Physical Exam Vitals reviewed. Constitutional: Appearance: She is obese. HENT: Head: Normocephalic and atraumatic. Cardiovascular: Rate and Rhythm: Normal rate and regular rhythm. Heart sounds: No murmur heard. No gallop. Pulmonary: Effort: No respiratory distress. Breath sounds: No wheezing, rhonchi or rales. Abdominal: Palpations: Abdomen is soft. There is no mass. Tenderness: There is no abdominal tenderness. There is no guarding or rebound. Hernia: No hernia is present. Neurological: Mental Status: She is alert. Psychiatric: Mood and Affect: Mood normal. Behavior: Behavior normal. Thought Content: Thought content normal. Judgment: Judgment normal. Assessment/Plan: Problem List Items Addressed This Visit Endocrine Class 2 severe obesity due to excess calories with serious comorbidity and body mass index (BMI) of36.0 to 36.9 in adult This is a 34-year-old woman who has been lost to follow-up for about a year and a half to our medical weight loss program. The patient is a bariatric patient from an outside institution who is doing relatively well in our medical weight loss program about a year ago. The patient reports she has hadmany stressors in her life and has picked up some weight. She reports getting back on the eating plan and exercise plan but has stalled out at a weight of 203 pounds. She is hoping to get back on track. I have placed her back on the eating plan using 2 meal replacements per day with 2 meals of protein and vegetables and 1/2 cup of carbohydrate (at the dinnertime meal) for the other meals. Patientreports that her blood pressure has increased recently and she will be following with her primary care physician in a couple weeks to reassess it and maybe be placed on medications. Patient also reports that she continues to have reflux. She is interested in using GLP-1 medications to help her losethe remainder of the weight. She was happy at a weight of about 175 pounds. She will start this eati ng plan and exercise plan to be consistent with her follow-up appointments. We will submit her notes for prior authorization to use [employer] in about 3 to 4 months if she is consistent with the plan. Patient will also have her annual blood work drawn which I ordered today. We will call her if any of those labs are abnormal. She will follow-up with me again on a monthly basis. Gastrointestinal Intestinal malabsorption following gastrectomy - Primary Relevant Orders 25-OH vitamin D CBC Comprehensive metabolic panel C-Reactive Protein Hemoglobin A1c Insulin Level Iron and iron binding capacity Lipid panel Parathyroid hormone (PTH) TSH Vitamin A Vitamin B1 (thiamine) Vitamin B12 Zinc Gastroesophageal reflux disease without esophagitis Bariatric surgery status documented in this encounter Miscellaneous Notes * Assessment & Plan Note - Marcella Simmons MD - 01/19/2025 12:22 PM EDT Associated Problem(s): Class 2 severe obesity due to excess calories with serious comorbidity and body mass index (BMI) of 36.0 to 36.9 in adult This is a 34-year-old woman who has been lost to follow-up for about a year and a half to our medical weight loss program. The patient is a bariatric patient from an outside institution who is doing relatively well in our medical weight loss program about a year ago. The patient reports she has hadmany stressors in her life and has picked up some weight. She reports getting back on the eating plan and exercise plan but has stalled out at a weight of 203 pounds. She is hoping to get back on track. I have placed her back on the eating plan using 2 meal replacements per day with 2 meals of protein and vegetables and 1/2 cup of carbohydrate (at the dinnertime meal) for the other meals. Patientreports that her blood pressure has increased recently and she will be following with her primary care physician in a couple weeks to reassess it and maybe be placed on medications. Patient also reports that she continues to have reflux. She is interested in using GLP-1 medications to help her losethe remainder of the weight. She was happy at a weight of about 175 pounds. She will start this eati ng plan and exercise plan to be consistent with her follow-up appointments. We will submit her notes for prior authorization to use [employer] in about 3 to 4 months if she is consistent with the plan. Patient will also have her annual blood work drawn which I ordered today. We will call her if any of those labs are abnormal. She will follow-up with me again on a monthly basis. documented in this encounter Plan of Treatment Upcoming Encounters Date Type Department Care Team (Late st Contact Info) Description 02/22/2025 3:00 PM EDT Office Visit [facility] General Surgical Care [address] [place] [address] [place] [address] Marcella Simmons MD [address] [facility], 2nd [place] [address] Pending Results Name Type Priority Associated Diagnoses Date /Time Vitamin B1 (thiamine) Lab Routine Intestinal malabsorption following gastrectomy 01/19/2025 11:36 AM EDT Scheduled Orders Name Type Priority Associated Diagnoses Orde r Schedule Vitamin B1 (thiamine) Lab Routine Intestinal malabsorption following gastrectomy Expected: 01/19/2025, Expires: 01/19/2026 documented as of this encounter Results * Zinc (01/19/2025 11:36 AM EDT) Zinc, S 78 60 - 106 mcg/dL [facility] Comment: (NOTE) ADDITIONAL INFORMATION This test was developed and its performance characteristics determined by [facility] in a manner consistent with CLIA requirements. This test has not been cleared or approved by the U.S. Food and Drug Administration. Blood 01/19/2025 11:3 6 AM EDT 01/19/2025 11:50 AM EDT Marcella Simmons MD LAB BLOOD ORDERABLES Final Result [facility] [address] [place] [address] * Vitamin B12 (01/19/2025 11:36 AM EDT) VITAMIN B12 1,114 232 - 1,245 pg/mL [facility] Blood 01/19/2025 11:3 6 AM EDT 01/19/2025 11:50 AM EDT Marcella Simmons MD LAB BLOOD ORDERABLES Final Result [facility] [address] [place] [address] * TSH (01/19/2025 11:36 AM EDT) TSH 1.79 0.27 - 4.20 uIU/mL [facility] Blood 01/19/2025 11:3 6 AM EDT 01/19/2025 11:50 AM EDT us Marcella Simmons MD LAB BLOOD ORDERABLES Final Result [address] [address] * (ABNORMAL) Parathyroid hormone (PTH) (01/19/2025 11:36 AM EDT) PARATHYROID HORMONE 133(H) 15 - 65 pg/mL [facility] Blood 01/19/2025 11:3 6 AM EDT 01/19/2025 11:50 AM EDT us Marcella Simmons MD LAB BLOOD ORDERABLES Final Result Performing Organization Address [facility] Co de Phone Number [address] [address] * (ABNORMAL) Lipid panel (01/19/2025 11:36 AM EDT) HDL 48 mg/dL [facility] Comment: Interpretation <40 mg/dL: Low HDL cholesterol (major risk factor for CHD) Greater than or equal to 60 mg/dL: High HDL cholesterol ( negative risk factor for CHD) HDL - cholesterol is affected by a number of factors, e.g. smoking, excerise, hormones, sex and age. CHOLESTEROL 149 0 - 240 mg/dL [facility] TRIGLYCERIDES 103 30 - 160 mg/dL [facility] LDL 80 50 - 129 mg/dL [facility] Comment: LDL levels in terms of risk for coronary heart disease: <100 mg/dL: Optimal 100-129 mg/dL: Near or above optimal 130-159 mg/dL: Borderline high 160-189 mg/dL: High >190 mg/dL: Very High CARDIAC RISK RATIO 3.1(L) 3.3 - 4.4 C [facility] Blood 01/19/2025 11:3 6 AM EDT 01/19/2025 11:50 AM EDT us Marcella Simmons MD LAB BLOOD ORDERABLES Final Result [address] [address] * (ABNORMAL) Iron and iron binding capacity (01/19/2025 11:36 AM EDT) IRON 35 30 - 160 ug/dL [facility] IRON BINDING CAPACITY 429(H) 228 - 428 ug/dL [facility] TRANSFERRIN SATURAT. 8(L) 15 - 50 % [facility] Blood 01/19/2025 11:3 6 AM EDT 01/19/2025 11:50 AM EDT us Marcella Simmons MD LAB BLOOD ORDERABLES Final Result Performing Organization Address [facility]/ZIP Co de Phone Number [address] [address] * Insulin Level (01/19/2025 11:36 AM EDT) INSULIN 16.6 2.6 - 25.0 uIU/mL [facility] Blood 01/19/2025 11:3 6 AM EDT 01/19/2025 11:50 AM EDT us Marcella Simmons MD LAB BLOOD ORDERABLES Final Result [address] [address] * Hemoglobin A1c (01/19/2025 11:36 AM EDT) HEMOGLOBIN A1C 5.5 4.3 - 5.8 % [facility] Blood 01/19/2025 11:3 6 AM EDT 01/19/2025 11:50 AM EDT us Marcella Simmons MD LAB BLOOD ORDERABLES Final Result [address] [address] * C-Reactive Protein (01/19/2025 11:36 AM EDT) C REACTIVE PROTEIN <3.0 0.0 - 4.0 mg/L [facility] Blood 01/19/2025 11:3 6 AM EDT 01/19/2025 11:50 AM EDT us Marcella Simmons MD LAB BLOOD ORDERABLES Final Result [address] [address] * (ABNORMAL) Comprehensive metabolic panel (01/19/2025 11:36 AM EDT) Pathologist [facility] SODIUM 136 133 - 146 mmol/L [facility] POTASSIUM 4.1 3.3 - 5.1 mmol/L [facility] CHLORIDE 103 96 - 108 mmol/L [facility] CO2 21 21 - 35 mmol/L [facility] BUN 10 6 - 19 mg/dL [facility] CREATININE 0.60 0.5 - 1.5 mg/dL [facility] GLUCOSE 96 70 - 99 mg/dL [facility] ALBUMIN 4.6 3.9 - 4.8 g/dL [facility] TOTAL PROTEIN 8.1(H) 6.5 - 8.0 g/dL [facility] CALCIUM 8.8 8.4 - 10.3 mg/dL [facility] ALKALINE PHOSPHATASE 70 39 - 117 U/L [facility] TOTAL BILIRUBIN 0.4 0.0 - 1.2 mg/dL [facility] AST 18 0 - 37 U/L [facility] ALT <5 0 - 40 U/L [facility] GLOBULIN 3.5 1 - 4.8 g/dL [facility] EGFR 120 >59 mL/min/1.7 3m2 [facility] Comment:Estimated glomerular filtration rate calculated using the CKD-EPI refit equation. ANION GAP 16 10 - 20 mmol/L [facility] Blood 01/19/2025 11:3 6 AM EDT 01/19/2025 11:50 AM EDT us Marcella Simmons MD LAB BLOOD ORDERABLES Final Result Performing Organization Address [facility]/ZIP Co de Phone Number [address] [address] * (ABNORMAL) CBC (01/19/2025 11:36 AM EDT) WBC 8.43 4.00 - 11.00 K/uL [facility] RBC 4.67 4.00 - 5.20 M/uL [facility] HGB 10.1(L) 12.0 - 16.0 g/dL [facility] HCT 35.3(L) 36.0 - 46.0 % [facility] PLT 389 150 - 450 K/uL [facility] MCV 75.6(L) 80.0 - 100.0 fL [facility] MCH 21.6(L) 27.0 - 31.0 pg [facility] MCHC 28.6(L) 32.0 - 36.0 g/dL [facility] RDW 15.0(H) 11.5 - 14.5 % [facility] MPV 9.9 8.4 - 12.0 fL [facility] NRBC 0.00 0.00 /100 WBCs [facility] ABSOLUTE NRBC 0.00 0.00 K/uL [facility] Blood 01/19/2025 11:3 6 AM EDT 01/19/2025 11:50 AM EDT us Marcella Simmons MD LAB BLOOD ORDERABLES Final Result [address] [address] * (ABNORMAL) 25-OH vitamin D (01/19/2025 11:36 AM EDT) 25 OH VIT D (TOTAL) 28(L) 30 - 60 ng/mL [facility] Blood 01/19/2025 11:3 6 AM EDT 01/19/2025 11:50 AM EDT us Marcella Simmons MD LAB BLOOD ORDERABLES Final Result [facility] [address] [place] [address] documented in this encounter Visit Diagnoses Diagnosis Intestinal malabsorption following gastrectomy- Primary Class 2 severe obesity due to excess calories with serious comorbidity and body mass index (BMI) of 36.0 to 36.9 in adult Gastroesophageal reflux disease without esophagitis Esophageal reflux Status post laparoscopic sleeve gastrectomy Bariatric surgery status documented in this encounter Care Teams Private Security Guard Relationship Specialty Start Date End Date Gage Diallo MD [address] [place] [address] [place] [address] PCP - General Internal Medicine 12/26/21 documented as of this encounter Additional Source Comments The information contained in this document represents components of the legal health record. It is not the complete legal health record.[facility]
--- OUTSIDE RECORDS SUMMARY | 2025-01-19 11:27 | XMS_ITS | Encounter Summary ---
Author Organization [facility] Address [address] [facility] [address] [place] [address] Phone Care Team Providers Care Florist Helper Name Role Phone Gage Diallo MD Primary Care Provider Encounter Details Date Type Department Care Team (Latest Contact Info) Description 01/19/2025 11:27 AM EDT - 01/19/2025 11:59 PM EDT Hospital Encounter [facility] [address] [place] [address] Marcella Simmons MD 15 [facility], 2nd [place] [address] [email or web address] Discharge Disposition: Home or Self Care Social History Tobacco Use Types Packs/Day Years Used Date Smoking Tobacco: Never Smokeless Tobacco: Never Alcohol Use Standard Drinks/Week Comments Yes 0 [...] on file documented as of this encounter Medications at Time of Discharge acetaminophen (TYLENOL) 325 mg tablet Take 650 mg by mouth every 6 (six) hours as needed for mild pain. hydrALAZINE (APRESOLINE) 10 MG tablet Take 20 tablets by mouth 2 (two) times a day. 08/08/2023 losartan (COZAAR) 25 MG tablet Take 50 mg by mouth daily. pantoprazole (PROTONIX) 40 MG tabletIndications: Gastroesophageal reflux disease without esophagitis Take 1 tablet (40 mg total) by mouth daily. 30 tablet 6 08/30/2023 traZODone (DESYREL) 50 MG tablet TAKE 1 TABLET BY MOUTH EVERY DAY BEDTIME NEEDED FOR SLEEP 12/25/2024 documented as of this encounter Plan of Treatment Upcoming Encounters Date Type Department Care Team (Late st Contact Info) Description 02/22/2025 3:00 PM EDT Office Visit [facility] General Surgical Care [address] [place] [address] Marcella Simmons MD [address] [facility], [address] [place] [address] Pending Results Name Type Priority Associated Diagnoses Date /Time Vitamin A Lab Routine Vitamin A deficiency 01/19/2025 11:36 AM EDT Vitamin B1 (thiamine) Lab Routine Intestinal malabsorption following gastrectomy 01/19/2025 11:36 AM EDT Scheduled Orders Name Type Priority Associated Diagnoses Orde r Schedule Vitamin A Lab Routine Vitamin A deficiency As Needed for 1 Occurrences starting 01/19/2025 until 01/19/2025 Vitamin B1 (thiamine) Lab Routine Intestinal malabsorption following gastrectomy As Needed for 1 Occurrences starting 01/19/2025 until 01/19/2025 documented as of this encounter Procedures Procedure Name Priority Date/Time Associated Diagnosis Comments ZINC Routine 01/19/2025 11:36 AM EDT Intestinal malabsorption following gastrectomy COMPREHENSIVE METABOLIC PANEL Routine 01/19/2025 11:36 AM EDT Intestinal malabsorption following gastrectomy IRON AND IRON BINDING CAPACITY Routine 01/19/2025 11:36 AM EDT Intestinal malabsorption following gastrectomy 25-OH VITAMIN D Routine 01/19/2025 11:36 AM EDT Intestinal malabsorption following gastrectomy INSULIN LEVEL Routine 01/19/2025 11:36 AM EDT Intestinal malabsorption following gastrectomy CBC Routine 01/19/2025 11:36 AM EDT Intestinal malabsorption following gastrectomy C-REACTIVE PROTEIN Routine 01/19/2025 11 :36 AM EDT Intestinal malabsorption following gastrectomy TSH Routine 01/19/2025 11:36 AM EDT Intestinal malabsorption following gastrectomy PARATHYROID HORMONE (PTH) Routine 01/19/2025 11:36 AM EDT Intestinal malabsorption following gastrectomy HEMOGLOBIN A1C Routine 01/19/2025 11:36 AM EDT Intestinal malabsorption following gastrectomy VITAMIN B12 Routine 01/19/2025 11:36 AM EDT Intestinal malabsorption following gastrectomy LIPID PANEL Routine 01/19/2025 11:36 AM EDT Intestinal malabsorption following gastrectomy documented in this encounter Results * (ABNORMAL) 25-OH vitamin D (01/19/2025 11:36 AM EDT) 25 OH VIT D (TOTAL) 28(L) 30 - 60 ng/mL Blood 01/19/2025 11:3 6 AM EDT 01/19/2025 11:50 AM EDT us Marcella Simmons MD LAB BLOOD ORDERABLES Final Result [address] [place] [address] * (ABNORMAL) CBC (01/19/2025 11:36 AM EDT) WBC 8.43 4.00 - 11.00 K/uL RBC 4.67 4.00 - 5.20 M/uL HGB 10.1(L) 12.0 - 16.0 g/dL HCT 35.3(L) 36.0 - 46.0 % PLT 389 150 - 450 K/uL MCV 75.6(L) 80.0 - 100.0 fL MCH 21.6(L) 27.0 - 31.0 pg MCHC 28.6(L) 32.0 - 36.0 g/dL RDW 15.0(H) 11.5 - 14.5 % MPV 9.9 8.4 - 12.0 fL NRBC 0.00 0.00 /100 WBCs ABSOLUTE NRBC 0.00 0.00 K/uL Blood 01/19/2025 11:3 6 AM EDT 01/19/2025 11:50 AM EDT us Marcella Simmons MD LAB BLOOD ORDERABLES Final Result [address] [address] * (ABNORMAL) Comprehensive metabolic panel (01/19/2025 11:36 AM EDT) SODIUM 136 133 - 146 mmol/L POTASSIUM 4.1 3.3 - 5.1 mmol/L CHLORIDE 103 96 - 108 mmol/L CO2 21 21 - 35 mmol/L BUN 10 6 - 19 mg/dL CREATININE 0.60 0.5 - 1.5 mg/dL GLUCOSE 96 70 - 99 mg/dL ALBUMIN 4.6 3.9 - 4.8 g/dL TOTAL PROTEIN 8.1(H) 6.5 - 8.0 g/dL CALCIUM 8.8 8.4 - 10.3 mg/dL ALKALINE PHOSPHATASE 70 39 - 117 U/L TOTAL BILIRUBIN 0.4 0.0 - 1.2 mg/dL AST 18 0 - 37 U/L ALT <5 0 - 40 U/L GLOBULIN 3.5 1 - 4.8 g/dL EGFR 120 >59 mL/min/1.7 3m2 Comment:Estimated glomerular filtration rate calculated using the CKD-EPI refit equation. ANION GAP 16 10 - 20 mmol/L Blood 01/19/2025 11:3 6 AM EDT 01/19/2025 11:50 AM EDT us Marcella Simmons MD LAB BLOOD ORDERABLES Final Result Performing Organization Address City/[facility]/ZIP Co de Phone Number [address] [address] * C-Reactive Protein (01/19/2025 11:36 AM EDT) C REACTIVE PROTEIN <3.0 0.0 - 4.0 mg/L Blood 01/19/2025 11:3 6 AM EDT 01/19/2025 11:50 AM EDT us Marcella Simmons MD LAB BLOOD ORDERABLES Final Result [address] [address] * Hemoglobin A1c (01/19/2025 11:36 AM EDT) HEMOGLOBIN A1C 5.5 4.3 - 5.8 % Blood 01/19/2025 11:3 6 AM EDT 01/19/2025 11:50 AM EDT us Marcella Simmons MD LAB BLOOD ORDERABLES Final Result [address] [address] * Insulin Level (01/19/2025 11:36 AM EDT) INSULIN 16.6 2.6 - 25.0 uIU/mL [facility] Blood 01/19/2025 11:3 6 AM EDT 01/19/2025 11:50 AM EDT us Marcella Simmons MD LAB BLOOD ORDERABLES Final Result Performing Organization Address City/[facility]/ZIP Co de Phone Number [address] [address] * (ABNORMAL) Iron and iron binding capacity (01/19/2025 11:36 AM EDT) IRON 35 30 - 160 ug/dL IRON BINDING CAPACITY 429(H) 228 - 428 ug/dL TRANSFERRIN SATURAT. 8(L) 15 - 50 % Blood 01/19/2025 11:3 6 AM EDT 01/19/2025 11:50 AM EDT us Marcella Simmons MD LAB BLOOD ORDERABLES Final Result Performing Organization Address [facility] Co de Phone Number [address] [address] * (ABNORMAL) Lipid panel (01/19/2025 11:36 AM EDT) HDL 48 mg/dL Comment: Interpretation <40 mg/dL: Low HDL cholesterol (major risk factor for CHD) Greater than or equal to 60 mg/dL: High HDL cholesterol ( negative risk factor for CHD) HDL - cholesterol is affected by a number of factors, e.g. smoking, excerise, hormones, sex and age. CHOLESTEROL 149 0 - 240 mg/dL TRIGLYCERIDES 103 30 - 160 mg/dL LDL 80 50 - 129 mg/dL Comment: LDL levels in terms of risk for coronary heart disease: <100 mg/dL: Optimal 100-129 mg/dL: Near or above optimal 130-159 mg/dL: Borderline high 160-189 mg/dL: High >190 mg/dL: Very High CARDIAC RISK RATIO 3.1(L) 3.3 - 4.4 C [facility] Blood 01/19/2025 11:3 6 AM EDT 01/19/2025 11:50 AM EDT Marcella Simmons MD LAB BLOOD ORDERABLES Final Result Performing Organization Address City/[facility]/ZIP Co de Phone Number [address] [address] * (ABNORMAL) Parathyroid hormone (PTH) (01/19/2025 11:36 AM EDT) PARATHYROID HORMONE 133(H) 15 - 65 pg/mL Blood 01/19/2025 11:3 6 AM EDT 01/19/2025 11:50 AM EDT us Marcella Simmons MD LAB BLOOD ORDERABLES Final Result Performing Organization Address [facility]/ZIP Co de Phone Number [address] [address] * TSH (01/19/2025 11:36 AM EDT) TSH 1.79 0.27 - 4.20 uIU/mL Blood 01/19/2025 11:3 6 AM EDT 01/19/2025 11:50 AM EDT us Marcella Simmons MD LAB BLOOD ORDERABLES Final Result Performing Organization Address [facility]/ZIP Co de Phone Number [address] [address] * Vitamin B12 (01/19/2025 11:36 AM EDT) VITAMIN B12 1,114 232 - 1,245 pg/mL Blood 01/19/2025 11:3 6 AM EDT 01/19/2025 11:50 AM EDT Marcella Simmons MD LAB BLOOD ORDERABLES Final Result Performing Organization Address [facility] Co de Phone Number [address] [place] [address] * Zinc (01/19/2025 11:36 AM EDT) Zinc, S 78 60 - 106 mcg/dL [facility] Comment: (NOTE) ADDITIONAL INFORMATION This test was developed and its performance characteristics determined by [facility] in a manner consistent with CLIA requirements. This test has not been cleared or approved by the U.S. Food and Drug Administration. Blood 01/19/2025 11:3 6 AM EDT 01/19/2025 11:50 AM EDT Marcella Simmons MD LAB BLOOD ORDERABLES Final Result Performing Organization Address [facility] de Phone Number [facility] MED/[facility] [address] [place] [address] documented in this encounter Visit Diagnoses Diagnosis Vitamin A deficiency Intestinal malabsorption following gastrectomy documented in this encounter Care Teams Florist Helper Relationship Specialty Start Date End Date Gage Diallo MD [address] [place] [address] [place] [address] PCP - General Internal Medicine 12/26/21 documented as of this encounter Additional Source Comments The information contained in this document represents components of the legal health record. It is not the complete legal health record.[facility]
--- NOTE | 2025-01-22 08:07 | MHC.PC.OV ---
Vital Signs 01/22/25 08:15 01/22/25 08:35 Height 5 ft 3 in Weight 92.079 kg BMI 36.0 BP 138/100 H 120/92 H Respiration 16 Pulse 93 Pulse Source Pulse Oximeter Temp 97.4 F Temp Source Temporal Artery Scan Pulse Oximetry (%) 99 Oxygen Delivery Method Room Air Intake Visit Reasons: BP Review Supervisor Uranium Processing Required: No Accompanied by: Self / Same As Patient Allergies clindamycin (CLINDAMYCIN) Allergy (Intermediate, Verified 01/22/25 08:08) HIVES Clindamycin Allergy (Unknown, Uncoded 01/22/25 08:08) Hives Medication List - Last Reconciled 01/22/25 by LILIANE Garcia cholecalciferol (vitamin D3) 50 mcg PO DAILY losartan 25 mg PO DAILY trazodone 50 mg PO BEDTIME PRN Tobacco use date assessed: 12/25/24 HPI HPI Comments History of Present Illness Details 34-year-old female with history of generalized anxiety disorder, ADHD, severe obesity with BMI greater than 36 presents to the office today for evaluation. Severe obesity-BMI 36. Continues with difficulty losing weight despite healthy diet and exercise. Following with Dr. Simmons at [facility] but states she will be closing her office. Dr. Simmons did state that she would qualify for revision given her uncontrolled GERD symptoms. She had trialed omeprazole in the past but had been taking it throughout the day. Labs were performed which were largely within normal limits including A1c, thyroid function labs, insulin levels among others. Looking for a referral to different provider as her office will be closing. Elevated blood pressures-new diagnosis of hypertension given multiple elevated blood pressure readings. Reports she was previously on losartan hydrochlorothiazide. Initial blood pressure in the office 138/100, recheck 120/92. Generalized anxiety disorder/insomnia-reports improvement with trazodone prescribed at last visit Primary hyperparathyroidism-last labs performed at [facility] showed a PTH of 138, normal calcium levels, vitamin-D 28. Reports history of elevated parathyroid hormone but was much lower Discussed elevations in transferrin levels. Iron level within normal limits. Total iron binding capacity within normal limits. Transferrin saturation 8. Reviewed iron levels previously which were within normal limits. On review of chart, previously ferritin levels have been within normal limits as well as bilirubin limits. Concerns: None other than above ROS: see hpi EXAM: Constitutional - Awake and Alert, No apparent distress Eyes - PERRL Neck-supple, thyroid symmetric, no goiter Cardiovascular - S1S2, RRR, No edema Respiratory - Normal lung expansion, Normal respiratory effort, No respiratory distress, CTA bilaterally Extremities - no calf tenderness bilaterally, no swelling Skin - Warm/Dry Neurological - Alert & oriented x3 Psychological - Appropriate affect [facility] Medical History (Updated 01/22/25 @ 08:46 by LILIANE Garcia) Hypertension Primary hyperparathyroidism Work-related stress Generalized anxiety disorder ADHD Severe obesity Social History Alcohol intake: current Alcohol intake frequency: holidays/special occasions only Patient Tobacco Use Status: Never used Tobacco e-Cigarette/Vaping Use: Never Used Questionnaire Thrive Questionnaire Date Thrive assessed: 12/25/24 GABY-7 AMB Questionnaire GABY-7 Date GABY - 7 assessed: 12/25/24 Source: Developed by Drs. Vincent Roman, Aura Samaniego, Alistair Ta and colleagues, with an educational edd from [employer]. Physical exam (Primary Care) Vital Signs: Last Vital Signs Temp 97.4 F 01/22/25 08:15 Pulse 93 01/22/25 08:15 Resp 16 01/22/25 08:15 BP 138/100 H 01/22/25 08:15 Pulse Ox 99 01/22/25 08:15 Oxygen Delivery Method Room Air 01/22/25 08:15 BMI result Body Mass Index 36.0 Tobacco/Smoking Status: Tobacco use Status Tobacco use date assessed 12/25/24 01/22/25 08:08 Patient Tobacco Use Status Never used Tobacco 01/22/25 08:08 e-Cigarette/Vaping Use Never Used 01/22/25 08:08 Thrive Assessment: Date of Thrive Assessment Date Thrive assessed 12/25/24 01/22/25 08:08 Coding Level of Care Code Est Pt Level 4 (90200) Diagnoses Severe obesity E66.01 Primary hyperparathyroidism E21.0 Generalized anxiety disorder F41.1 Hypertension I10 Assessment & Plan Assessment & Plan (1) Severe obesity: Code(s): E66.01 - Morbid (severe) obesity due to excess calories Category: Medical Plan: Encouraged to continue with healthy diet lower in calories with emphasis on increased protein, fruits, vegetables and limiting saturated fats, highly processed foods, simple carbohydrates, refined sugars. Continue with regular exercise for at least 150 minutes of moderate intensity exercise weekly. Referred to [facility] weight management at patient request (2) Primary hyperparathyroidism: Code(s): E21.0 - Primary hyperparathyroidism Category: Medical Plan: Vitamin-D 2000 mg daily prescribed. Referral placed to endocrinology (3) Generalized anxiety disorder: Code(s): F41.1 - Generalized anxiety disorder Category: Medical Plan: With insomnia. Continue trazodone (4) Hypertension: Code(s): I10 - Essential (primary) hypertension Category: Medical Plan: Losartan 25 mg prescribed. Follow-up in the office in 2 weeks for blood pressure recheck Plan Follow-up in the office in 2 weeks. Labs reviewed from [facility] Discussed elevations in transferrin levels. Iron level within normal limits. Total iron binding capacity within normal limits. Transferrin saturation 8. Reviewed iron levels previously which were within normal limits. On review of chart, previously ferritin levels have been within normal limits as well as bilirubin limits. Will continue monitoring Orders: Referrals Bariatric Surgery Referral E66.01 - Morbid (severe) obesity due to excess calories Endocrinology Referral E21.0 - Primary hyperparathyroidism Medications: New cholecalciferol (vitamin D3) 50 mcg PO DAILY 90 caps 1RF losartan 25 mg PO DAILY 90 tabs 0RF omeprazole 40 mg PO DAILY 180 caps 0RF
[2025-01-22 08:15] VITALS: BP 138/100; PULSE 93; RESP 16; TEMP 36.3; O2SAT 99; BMI 36.0
--- OUTSIDE RECORDS SUMMARY | 2025-01-22 08:20 | XMS_ITS | Encounter Summary ---
Author Organization [facility] Address [address] [place] [address] [place] [phone] Phone Care Team Providers Care Dressing Room Attendant Name Role Phone Gage Diallo MD Primary Care Provider Reason for Visit * Reason Onset Date Comments Appointment 12/25/2024 Encounter Details Date Type Department Care Team (Late st Contact Info) Description 12/25/2024 Telephone [facility] General Surgical Care [address] [place] [address] Marcella Simmons MD 15 [facility], 2nd [place] [address] [email or web address] Appointment Social History Tobacco Use Types Packs/Day Years [...] on file documented as of this encounter Progress Notes * Ellen Orr - 12/25/2024 4:37 PM EDT PT lvm on 12/25 requesting an appt with . Please advise. Central Support Sheriff'S Officer (Please do not reply to this user; this inbox is not monitored.) Thank you. documented in this encounter Plan of Treatment Upcoming Encounters Date Type Department Care Team (Late st Contact Info) Description 02/22/2025 3:00 PM EDT Office Visit [facility] General Surgical Care [address] [place] [address] Marcella Simmons MD 15 [facility], 2nd [place] [address] [email or web address] documented as of this encounter Visit Diagnoses Not on filedocumented in this encounter Care Teams Dressing Room Attendant Relationship Specialty Start Date End Date Gage Diallo MD [address] [place] [address] [place] [address] PCP - General Internal Medicine 12/26/21 documented as of this encounter Additional Source Comments The information contained in this document represents components of the legal health record. It is not the complete legal health record.[facility]
[2025-01-22 08:35] VITALS: BP 120/92
== END 2025-01-22 08:42 | disposition home or self-care (01) ==
LOC: HO.HMCHD 08:05
PROVIDERS: PCP Physician Assistant; Visit Provider Physician Assistant
DX: E66.01 Morbid (severe) obesity due to excess calories (principal); E21.0 Primary hyperparathyroidism; F41.1 Generalized anxiety disorder; I10 Essential (primary) hypertension

== ENCOUNTER → 2025-01-22 08:04 | Outpatient (BNVA) | payer OTHER, SELFPAY | PROVIDERS: PCP Physician Assistant; Visit Provider Physician Assistant | DX: E66.01 Morbid (severe) obesity due to excess calories (principal); Z68.36 Body mass index [BMI] 36.0-36.9, adult; E21.0 Primary hyperparathyroidism; F41.1 Generalized anxiety disorder; I10 Essential (primary) hypertension | CPT/HCPCS: 99212 ==

== ENCOUNTER 2025-02-09 07:19 | Outpatient (REF) | payer OTHER, SELFPAY ==
[2025-02-09 08:27] LABS: Hematocrit 31.3 % (37.0-47.0); Hemoglobin 9.2 g/dl (12.0-16.0); Mean Corpuscular HGB Conc 29.4 g/dl (31.0-35.0); Mean Corpuscular Hemoglobin 21.6 pg (27.0-33.0); Mean Corpuscular Volume 73.6 fL (80.0-98.0); NRBC Abs Auto 0.000 X10*3/uL (0.0-0.012); NRBC Pct Auto 0.0 /100WBC (0.0-0.2); Platelet Count 368 X10*3/uL (160-400); Red Blood Count 4.25 X10*6/uL (4.20-5.50); White Blood Count 7.2 X10*3/uL (4.8-10.8)
[2025-02-09 16:10] LABS: CT PCR NOT DETECTED (Not Detect.); NG PCR NOT DETECTED (Not Detect.)
== END 2025-02-09 07:20 | disposition home or self-care (01) ==
LOC: HO.LAB 07:19
PROVIDERS: PCP Physician Assistant; Visit Provider Obstetrics & Gynecology
DX: Z01.419 Encounter for gynecological examination (general) (routine) without abnormal findings (principal); N93.9 Abnormal uterine and vaginal bleeding, unspecified; I10 Essential (primary) hypertension; K21.9 Gastro-esophageal reflux disease without esophagitis; Z79.899 Other long term (current) drug therapy
CPT/HCPCS: 36415; 81025; 84443; 84702; 85027; 87491; 87591; 99202; 99212; 99385

== ENCOUNTER 2025-02-09 07:19 | Outpatient (AMB) | payer OTHER, SELFPAY ==
--- OUTSIDE RECORDS SUMMARY | 2025-02-09 07:22 | XMS_ITS | Encounter Summary ---
Author Organization [facility] Address [address] [place] [address] [place] [phone] Phone Care Team Providers Care Parachute Line Tier Name Role Phone Gage Diallo MD Primary Care Provider Reason for Visit * Reason Onset Date Comments Appointment 12/25/2024 Encounter Details Date Type Department Care Team (Late st Contact Info) Description 12/25/2024 Telephone [place] [facility] General Surgical Care [address] [place] [address] Marcella Simmons MD 15 [facility], 2nd [place] [address] [email or web address] Appointment Social History Tobacco Use Types Packs/Day [...] appt with . Please advise. Central Support Hedis Abstractor (Please do not reply to this user; this inbox is not monitored.) Thank you. documented in this encounter Plan of Treatment Upcoming Encounters Date Type Department Care Team (Late st Contact Info) Description 02/22/2025 3:00 PM EDT Office Visit [facility] General Surgical Care [address] [place] [address] Marcella Simmons MD 15 [facility], 2nd [place] [address] [email or web address] documented as of this encounter Visit Diagnoses Not on filedocumented in this encounter Care Teams Parachute Line Tier Relationship Specialty Start Date End Date Gage Diallo MD [address] [place] [address] [place] [address] PCP - General Internal Medicine 12/26/21 documented as of this encounter Additional Source Comments The information contained in this document represents components of the legal health record. It is not the complete legal health record.[facility]
--- OUTSIDE RECORDS SUMMARY | 2025-02-09 07:22 | XMS_ITS | Clinical Summary ---
Author Organization [facility] Address [address] [place] [address] Phone Care Team Providers Care Gis Consultant Name Role Phone Mi Martins MD Primary Care Provider [phone] Social History Tobacco Use Types Packs/Day Years Used Date Smoking Tobacco: Never Assessed Comments Unknown Sex and Gender Information Value Date Recorded Sex Assigned at Not on file Legal Sex Female 11:10 AM EDT Gender Identity Not on file Sexual Orientation Not on file Plan of Treatment Upcoming Encounters Date Type Department Care Team (Late st Contact Info) Description 03/17/2025 1:30 PM EST Office Visit Bariatric Surgery - [address] [place] [address] Fahad Turner MD [address] [place] [address] Health Maintenance Due Date Last Done Comments DTaP,Tdap,and Td Vaccines (1 - Tdap) 02/17/2008 Hepatitis B Vaccines (1 of 3 - 19+ 3-dose series) 02/17/2008 Cervical Cancer Screening: P ap Smear 2010 HPV Vaccines (1 - 3-dose SCD M series) 02/17/2016 Depression Screening 05/06/2024 COVID-19 Vaccine ( - 2023-2 5 season) 2025 Influenza Vaccine (#1) 2025 Cholesterol Screening (Lipid Panel) 01/22/2025 HIV Screening 01/22/2025 Hepatitis C Screening 01/22/2025 Social Influencers of Health Screening 01/22/2025 RSV Immunization Adult Patie nts (1 - 1-dose 75+ series) 02/17/2064 HIB Vaccines Aged Out No longer eligi ble based on patient's age to complete this topic Hepatitis A Vaccines Aged Out No long er eligible based on patient's age to complete this topic IPV Vaccines Aged Out No longer eligi ble based on patient's age to complete this topic MMR Vaccines Aged Out No longer eligi ble based on patient's age to complete this topic Meningococcal ACWY Vaccine Aged Out N o longer eligible based on patient's age to complete this topic Meningococcal B Vaccine Aged Out No l onger eligible based on patient's age to complete this topic Pneumococcal Vaccine: Pediat rics (0 to 5 Years) and At-Risk Patients (6 to 49 Years) Aged Out No longer eligible b ased on patient's age to complete this topic RSV Immunization Patients Un renetta 20 months Aged Out No longer eligible b ased on patient's age to complete this topic Varicella Vaccines Aged Out No longer eligible based on patient's age to complete this topic Insurance [facility] Care Teams Gis Consultant Relationship Specialty Start Date End Date Mi Martins MD [address] [place] [phone] PCP - General Internal Medicine 01/22/25
--- OUTSIDE RECORDS SUMMARY | 2025-02-09 07:22 | XMS_ITS | Clinical Summary ---
Author Organization [facility] Address [address] [place] [phone] Phone Care Team Providers Care Etl Application Developer Name Role Phone Gage Diallo MD Primary [...] 2 (two) times a day. 4 Active pantoprazole (PROTONIX) 40 MG tabletIndication s:Gastroesophage al reflux disease without esophagitis Take 1 tablet (40 mg total) by mouth daily. 30 tablet 6 4 Active traZODone (DESYREL) 50 MG tablet TAKE 1 TABLET BY MOUTH EVERY DAY BEDTIME NEEDED FOR SLEEP 5 Active calcium carbonate 500 mg (200 mg elemental) chewable tablet Take 1 tablet by mouth daily as needed for heartburn. 01/20/20 25 Discontinu ed(No longer taking) cholecalciferol (VITAMIN D3) 25 MCG (1,000 unit) tablet Take 1,000 Units by mouth daily. 01/20/20 25 Discontinu ed(No longer taking) vitamin A 64095 UNIT capsule TAKE 2 CAPSULES (20,000 UNITS TOTAL) BY MOUTH DAILY. 60 capsule 4 01/20/20 25 Discontinu ed(No longer taking) Active Problems Problem Noted Date Diagnosed Date Class 2 severe obesity due t o excess calories with serious comorbidity and body mass index (BMI) of 36.0 to 36.9 in adult 01/19/2025 Assessment & Plan (01/19/2025 12:22 PM EDT): This is a 34-year-old woman who has been lost to follow-up for about a year and a half to our medical weight loss program. The patient is a bariatric patient from an outside institution who is doing relatively well in our medical weight loss program about a year ago. The patient reports she has had many stressors in her life and has picked [...] the dinnertime meal) for the other meals. Patient reports that her blood pressure has increased recently and she will be following with her primary care physician in a couple weeks to reassess it and maybe be placed on medications. Patient also reports that she continues to have reflux. She is interested in using GLP-1 medications to help her lose the remainder of the weight. She was happy at a weight of about 175 pounds. She will start this eating plan and exercise plan to be consistent with her follow- up appointments. We will submit her notes for prior authorization to use [employer] in about 3 to 4 months if she is consistent with the plan. Patient will also have her annual blood work drawn which I ordered today. We will call her if any of those labs are abnormal. She will follow-up with me again on a monthly basis. Bariatric surgery status 01/19/2025 Preoperative examination 08/30/2023 Class 1 obesity due [...] include 2 protein meal replacements such as [place] Island[place] yogurt, cottage cheese, protein shake, or protein bar at 9 AM and 3 PM daily. At 12 PM and 6 PM daily the patient will consume 3 to 4 ounces of protein with 4 ounces of vegetables or small salad with not more than 2 tablespoons of a Luxembourgish or vinaigrette dressing. At the 6 PM [...] documentation. Intestinal malabsorption following gastrectomy 0 01/15/2022 Encounters Date Type Department Care Team Description 01/19/2025 11:27 AM EDT - 01/19/2025 11:59 PM EDT Hospital Encounter [facility] [address] [place] [address] Marcella Simmons MD Discharge Disposition: Home or Self Care 01/19/2025 10:30 AM EDT Office Visit [facility] General Surgical Care [address] [place] [address] Marcella Simmons MD Intestinal malabsorption following gastrectomy (Primary Dx); Class 2 severe obesity due to excess calories with serious comorbidity and body mass index (BMI) of 36.0 to 36.9 in adult; Gastroesophageal reflux disease without esophagitis; Status post laparoscopic sleeve gastrectomy; Bariatric surgery status 12/25/2024 Telephone [facility] General Surgical Care [address] [place] [address] Marcella Simmons MD Appointment from Last 3 Months Family History Medical History Relation Comments Lung [...] Mass Index 36.08 01/19/2025 10:00 AM EDT Plan of Treatment Upcoming Encounters Date Type Department Care Team (Late st Contact Info) Description 02/22/2025 3:00 PM EDT Office Visit [facility] General Surgical Care [address] [place] [address] Marcella Simmons MD [address] [facility], 2nd [place] [address] [email or web address] Due Date Last Done Comments Adult Td,Tdap Booster 1989 DEPRESSION SCREENING 2001 HEPATITIS C SCREENING 2007 HIV ONE-TIME SCREENING (18-6 5 YEARS) 2007 PAP SMEAR 2010 INFLUENZA VACCINE (#1) 2024 COVID-19 VACCINE ( - 2024-2 6 season) 2025 CREATININE LEVEL 01/19/2026 01/19/2025, 08/30/2023, 01/15/2022 POTASSIUM LEVEL 01/19/2026 01/19/2025, 08/30/2023, 01/15/2022 SCREENING FOR DIABETES 01/20/2028 , 01/19/2025 SMOKING STATUS SCREENING (On ce After 26 Yrs) Completed 01/19/2025 HEPATITIS A VACCINES Aged Out No long [...] Procedure Name Priority Date/Time Associated Diagnosis Comments 25-OH VITAMIN D Routine 01/19/2025 11:36 AM EDT Intestinal malabsorption following gastrectomy CBC Routine 01/19/2025 11:36 AM EDT Intestinal malabsorption following gastrectomy COMPREHENSIVE METABOLIC PANEL Routine 01/19/2025 11:36 AM EDT Intestinal malabsorption following gastrectomy C-REACTIVE PROTEIN Routine 01/19/2025 11 :36 AM EDT Intestinal malabsorption following gastrectomy HEMOGLOBIN [...] 11:36 AM EDT Intestinal malabsorption following gastrectomy TSH Routine 01/19/2025 11:36 AM EDT Intestinal malabsorption following gastrectomy VITAMIN B1 (THIAMINE) Routine 01/19/2025 11:36 AM EDT Intestinal malabsorption following gastrectomy VITAMIN B12 Routine 01/19/2025 11:36 AM EDT Intestinal malabsorption following gastrectomy ZINC Routine 01/19/2025 11:36 AM EDT Intestinal malabsorption following gastrectomy VITAMIN A Routine 01/19/2025 11:36 AM EDT Vitamin A deficiency from Last 3 Months Results * Zinc (01/19/2025 11:36 AM EDT) Zinc, S 78 60 - 106 mcg/dL [facility] Comment: (NOTE) ADDITIONAL INFORMATION This test was developed and its performance characteristics determined by [facility] in a manner consistent with CLIA requirements. This test has not been cleared or approved by the U.S. Food and Drug Administration. Blood 01/19/2025 11:3 6 AM EDT 01/19/2025 11:50 AM EDT Marcella Simmons MD LAB BLOOD ORDERABLES Final Result [facility] [address] [place] [address] * (ABNORMAL) Comprehensive metabolic panel (01/19/2025 11:36 AM EDT) SODIUM 136 133 - 146 mmol/L [facility] POTASSIUM 4.1 3.3 - 5.1 mmol/L [facility] CHLORIDE 103 96 - 108 mmol/L [facility] CO2 21 21 - 35 mmol/L [facility] BUN 10 6 - 19 mg/dL [facility] CREATININE 0.60 0.5 - 1.5 mg/dL [facility] GLUCOSE 96 70 - 99 mg/dL [facility] ALBUMIN 4.6 3.9 - 4.8 g/dL [facility] TOTAL PROTEIN 8.1(H) 6.5 - 8.0 g/dL [facility] CALCIUM 8.8 8.4 - 10.3 mg/dL [facility] ALKALINE PHOSPHATASE 70 39 - 117 U/L [facility] TOTAL BILIRUBIN 0.4 0.0 - 1.2 mg/dL [facility] AST 18 0 - 37 U/L [facility] ALT <5 0 - 40 U/L [facility] GLOBULIN 3.5 1 - 4.8 g/dL [facility] EGFR 120 >59 mL/min/1.7 3m2 [facility] Comment:Estimated glomerular filtration rate calculated using the CKD-EPI refit equation. ANION GAP 16 10 - 20 mmol/L [facility] Blood 01/19/2025 11:3 6 AM EDT 01/19/2025 11:50 AM EDT Marcella Simmons MD LAB BLOOD ORDERABLES Final Result Performing Organization Address City/[facility] Co de Phone Number [address] [address] * (ABNORMAL) Iron and iron binding capacity (01/19/2025 11:36 AM EDT) Pathologist [facility] IRON 35 30 - 160 ug/dL [facility] IRON BINDING CAPACITY 429(H) 228 - 428 ug/dL [facility] TRANSFERRIN SATURAT. 8(L) 15 - 50 % [facility] Blood 01/19/2025 11:3 6 AM EDT 01/19/2025 11:50 AM EDT Marcella Simmons MD LAB BLOOD ORDERABLES Final Result Performing Organization Address [facility] de Phone Number [address] [address] * Vitamin A (01/19/2025 11:36 AM EDT) [facility] VITAMIN A 36.4 32.5 - 78.0 mcg/dL [facility] Comment: (NOTE) ADDITIONAL INFORMATION This test was developed and its performance characteristics determined by [facility] in a manner consistent with CLIA requirements. This test has not been cleared or approved by the U.S. Food and Drug Administration. Blood 01/19/2025 11:3 6 AM EDT 01/19/2025 11:50 AM EDT us Marcella Simmons MD LAB BLOOD ORDERABLES Final Result Performing Organization Address [facility] Co de Phone Number [facility] [address] [place] [address] * (ABNORMAL) 25-OH vitamin D (01/19/2025 11:36 AM EDT) Pathologist [facility] 25 OH VIT D (TOTAL) 28(L) 30 - 60 ng/mL [facility] Blood 01/19/2025 11:3 6 AM EDT 01/19/2025 11:50 AM EDT us Marcella Simmons MD LAB BLOOD ORDERABLES Final Result Performing Organization Address City/[facility]/ZIP Co de Phone Number [facility] [address] [place] [address] * Insulin Level (01/19/2025 11:36 AM EDT) INSULIN 16.6 2.6 - 25.0 uIU/mL [facility] Blood 01/19/2025 11:3 6 AM EDT 01/19/2025 11:50 AM EDT us Marcella Simmons MD LAB BLOOD ORDERABLES Final Result Performing Organization Address City/[facility] Co de Phone Number [address] [address] * (ABNORMAL) CBC (01/19/2025 11:36 AM EDT) WBC 8.43 4.00 - 11.00 K/uL [facility] RBC 4.67 4.00 - 5.20 M/uL [facility] HGB 10.1(L) 12.0 - 16.0 g/dL [facility] HCT 35.3(L) 36.0 - 46.0 % [facility] PLT 389 150 - 450 K/uL [facility] MCV 75.6(L) 80.0 - 100.0 fL [facility] MCH 21.6(L) 27.0 - 31.0 pg [facility] MCHC 28.6(L) 32.0 - 36.0 g/dL [facility] RDW 15.0(H) 11.5 - 14.5 % [facility] MPV 9.9 8.4 - 12.0 fL [facility] NRBC 0.00 0.00 /100 WBCs [facility] ABSOLUTE NRBC 0.00 0.00 K/uL [facility] Blood 01/19/2025 11:3 6 AM EDT 01/19/2025 11:50 AM EDT us Marcella Simmons MD LAB BLOOD ORDERABLES Final Result Performing Organization Address [facility] Co de Phone Number [address] [address] * C-Reactive Protein (01/19/2025 11:36 AM EDT) C REACTIVE PROTEIN <3.0 0.0 - 4.0 mg/L [facility] Blood 01/19/2025 11:3 6 AM EDT 01/19/2025 11:50 AM EDT us Marcella Simmons MD LAB BLOOD ORDERABLES Final Result Performing Organization Address [facility] de Phone Number [address] [address] * TSH (01/19/2025 11:36 AM EDT) TSH 1.79 0.27 - 4.20 uIU/mL [facility] Blood 01/19/2025 11:3 6 AM EDT 01/19/2025 11:50 AM EDT us Marcella Simmons MD LAB BLOOD ORDERABLES Final Result Performing Organization Address [facility] de Phone Number [address] [address] * Vitamin B1 (thiamine) (01/19/2025 11:36 AM EDT) VITAMIN B1 88 70 - 180 nmol/L [facility] Comment: (NOTE) ADDITIONAL INFORMATION This test was developed and its performance characteristics determined by [facility] in a manner consistent with CLIA requirements. This test has not been cleared or approved by the U.S. Food and Drug Administration. Blood 01/19/2025 11:3 6 AM EDT 01/19/2025 11:50 AM EDT Result Kassie Simmons MD LAB BLOOD ORDERABLES Final Result [facility] [address] [place] [address] * (ABNORMAL) Parathyroid hormone (PTH) (01/19/2025 11:36 AM EDT) PARATHYROID HORMONE 133(H) 15 - 65 pg/mL [facility] Blood 01/19/2025 11:3 6 AM EDT 01/19/2025 11:50 AM EDT Result Kassie Simmons MD LAB BLOOD ORDERABLES Final Result Performing Organization Address [facility] Co de Phone Number [address] [address] * Hemoglobin A1c (01/19/2025 11:36 AM EDT) HEMOGLOBIN A1C 5.5 4.3 - 5.8 % [facility] Blood 01/19/2025 11:3 6 AM EDT 01/19/2025 11:50 AM EDT us Marcella Simmons MD LAB BLOOD ORDERABLES Final Result Performing Organization Address [facility]/ZIP Co de Phone Number [address] [address] * Vitamin B12 (01/19/2025 11:36 AM EDT) VITAMIN B12 1,114 232 - 1,245 pg/mL [facility] Blood 01/19/2025 11:3 6 AM EDT 01/19/2025 11:50 AM EDT us Marcella Simmons MD LAB BLOOD ORDERABLES Final Result Performing Organization Address City/[facility]/ZIP Co de Phone Number [address] [address] * (ABNORMAL) Lipid panel (01/19/2025 11:36 AM EDT) HDL 48 mg/dL [facility] Comment: Interpretation <40 mg/dL: Low HDL cholesterol (major risk factor for CHD) Greater than or equal to 60 mg/dL: High HDL cholesterol ( negative risk factor for CHD) HDL - cholesterol is affected by a number of factors, e.g. smoking, excerise, hormones, sex and age. CHOLESTEROL 149 0 - 240 mg/dL [facility] TRIGLYCERIDES 103 30 - 160 mg/dL [facility] LDL 80 50 - 129 mg/dL [facility] Comment: LDL levels in terms of risk for coronary heart disease: <100 mg/dL: Optimal 100-129 mg/dL: Near or above optimal 130-159 mg/dL: Borderline high 160-189 mg/dL: High >190 mg/dL: Very High CARDIAC RISK RATIO 3.1(L) 3.3 - 4.4 [facility] Blood 01/19/2025 11:3 6 AM EDT 01/19/2025 11:50 AM EDT us Marcella Simmons MD LAB BLOOD ORDERABLES Final Result Performing Organization Address City/[facility] Co de Phone Number [address] [address] from Last [address] [facility] [place] [phone] Care Teams Etl Application Developer Relationship Specialty Start Date End Date Gage Diallo MD [address] [place] [address] [place] [address] PCP - General Internal Medicine 12/26/21 Additional Source Comments The information contained in this document represents components of the legal health record. It is not the complete legal health record.[facility]
--- NOTE | 2025-02-09 07:26 | MHC.OFFVIS ---
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 Complaining of regular heavy and prolonged menstrual cycles associated with passage of blood clots and pelvic cramping Last Pap/HPV? [facility] Medical History Hypertension Primary hyperparathyroidism Work-related stress Generalized anxiety disorder ADHD Severe obesity Surgical History Hx of gastric bypass Hx of tubal ligation Family History Maternal Aunt Breast cancer Family/Other Breast cancer Father Lung cancer HTN (hypertension) Maternal Grandfather Lung cancer Mother HTN (hypertension) Paternal Grandmother Diabetes Social History Household Members: Spouse and Children Housing: House Alcohol intake: current Alcohol intake frequency: holidays/special occasions only Patient Tobacco Use Status: Never used Tobacco e-Cigarette/Vaping Use: Never Used Current occupational status: employed 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 Sexually active: Yes Sexual orientation: Straight/Heterosexual Gender identity: Female Female Reproductive History Menstrual Duration of menses: 8-10 days Date of last menstrual period: 01/22/25 Total pregnancies: 5 Full term: 4 Number of Living Children: 4 Ab spontaneous: 1 Review of Systems Const All systems reviewed & are unremarkable except as noted in HPI and below Card Reports as per HPI Resp Reports as per HPI GI Reports as per HPI and Reports no additional complaints Reports as per HPI Physical Exam Vital Signs: Last Vital Signs BP 132/102 H 02/09/25 07:34 BMI result Body Mass Index 36.7 Const General: cooperative, healthy appearing and comfortable Chest Chest palpation & inspection: normal inspection of the chest and normal palpation of entire chest wall Breast/axilla inspection: normal inspection of the breasts and normal inspection of the axillae Breast/axilla palpation: normal palpation of the breasts, normal palpation of the axillae and no axillary lymphadenopathy Resp Effort & Inspection: normal respiratory effort Auscultation: clear to auscultation bilaterally Percussion: percussion normal Cardio Palpation: normal PMI Rate: regular rate Rhythm: regular rhythm Heart sounds: no murmurs and no rubs Peripheral pulses: Peripheral pulses 2+ throughout GI Inspection: Yes normal to inspection Palpation (GI): Soft to palpation, nontender, no guarding, not rigid and No hepatosplenomegaly present Percussion: Yes normal to percussion Auscultation: normal bowel sounds Rectal Exam - Female: deferred General: Yes bladder normal to palpation External Female Exam: No lesion Speculum Exam - Vagina: normal appearance of the vagina, normal palpation, normal vaginal discharge and not erythematous Speculum Exam - Cervix: normal appearance of the cervix and normal palpation Bimanual exam- vagina & uterus: normal bimanual exam, normal palpation, uterine size normal, bladder normal to palpation, consistency normal and normal palpation Bimanual Exam- Adnexa, other: normal adnexae, no masses and no tenderness Results AMB Test Urine AMB Test Urine Negative Last Edit by Sandy Castañeda CMA on 02/09/25 07:52 Assessment & Plan Assessment & Plan (1) Well woman exam: Code(s): Z01.419 - Encounter for gynecological examination (general) (routine) without abnormal findings Category: Medical Plan: Cotesting done. Counseled the patient about the recommended dietary allowance of 1000 mg of Calcium & 600 IU of vitamin D. The patient was instructed to perform monthly self-breast exams and to schedule an annual exam in a year; All questions answered and the patient verbalized understanding. Instructed the patient to schedule annual exam in a year (2) Abnormal uterine bleeding (AUB): Code(s): N93.9 - Abnormal uterine and vaginal bleeding, unspecified Category: Medical Plan: Co testing done, GC and chlamydia taken CBC, TSH, HCG, and pelvic ultrasound ordered. Discussed with the patient the different causes of abnormal bleeding including thyroid disorders, uterine and ovarian pathology, endometrial hyperplasia, carcinoma and other potential causes. Discussed with the patient the work up including CBC (to r/o anemia), TSH, pelvic Ultrasound, endometrial biopsy to r/o endometrial pathology. All questions answered and the patient verbalized understanding. Instructed the patient to schedule an appointment for an endometrial biopsy in 2 weeks. Orders: Orders Complete Blood Count no Diff Today N93.9 - Abnormal uterine and vaginal bleeding, unspecified TSH reflex Free T4 Today N93.9 - Abnormal uterine and vaginal bleeding, unspecified US pelvic and transvaginal Today N93.9 - Abnormal uterine and vaginal bleeding, unspecified AMB HCG Urine Test Today Z32.02 - Encounter for test, result negative HCG Quantitative Today N93.9 - Abnormal uterine and vaginal bleeding, unspecified Coding Level of Care Code New Pt Level 3 (16555) New Pt Prev Care 18-39yr(60599 Diagnoses Well woman exam Z01.419 Abnormal uterine bleeding (AUB) N93.9
[2025-02-09 07:34] VITALS: BP 132/102; BMI 36.7
== END 2025-02-09 08:22 | disposition home or self-care (01) ==
LOC: HO.HWS 07:20
PROVIDERS: PCP Internal Medicine; Visit Provider Obstetrics & Gynecology
DX: Z01.419 Encounter for gynecological examination (general) (routine) without abnormal findings (principal); N93.9 Abnormal uterine and vaginal bleeding, unspecified; Z32.02 Encounter for pregnancy test, result negative
CPT/HCPCS: 99203; 99385; 99459

== ENCOUNTER 2025-02-09 09:13 | Outpatient (REF) | payer OTHER, SELFPAY | END 2025-02-09 09:14 | disposition home or self-care (01) | LOC: HO.LNP 09:13 | PROVIDERS: Visit Provider Obstetrics & Gynecology | DX: N93.9 Abnormal uterine and vaginal bleeding, unspecified (principal); Z01.419 Encounter for gynecological examination (general) (routine) without abnormal findings | CPT/HCPCS: 87626; 88175 ==

== ENCOUNTER 2025-02-09 15:45 | Outpatient (AMB) | payer OTHER, SELFPAY ==
--- NOTE | 2025-02-09 15:31 | MHC.PC.OV ---
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 Clerk Required: No Accompanied by: Self / Same As Patient Allergies clindamycin (CLINDAMYCIN) Allergy (Intermediate, Verified 02/09/25 15:31) HIVES Clindamycin Allergy (Unknown, Uncoded 02/09/25 07:36) Hives Medication List - Last Reconciled 02/09/25 by LILIANE Garcia acetaminophen (Tylenol) 325 mg PO QID PRN cholecalciferol (vitamin D3) 50 mcg PO DAILY ferrous sulfate 325 mg PO DAILY 90 days losartan 50 mg PO DAILY omeprazole 40 mg PO DAILY trazodone 50 mg PO BEDTIME PRN Tobacco use date assessed: 12/25/24 HPI HPI Comments History of Present Illness Details 34-year-old female with history of hyperparathyroidism, depression/anxiety, insomnia, iron-deficiency anemia, obesity, hypertension presenting to the office today for blood pressure follow-up. She was seen in the office 2 weeks ago with elevated blood pressures. Was started on losartan 50 mg daily. Blood pressure remains elevated today at 135/92 on recheck. She has been compliant with medications. She does not check her blood pressures at home. She does have upcoming appointment with endocrinology for management of the hyperparathyroidism. She does also report worsening of her acid reflux symptoms despite avoiding triggering foods and taking omeprazole 40 mg daily. No dysphagia or globus sensation. ROS: General: No fevers, malaise, unintentional weight loss HEENT: No blurred vision, diplopia. No sore throat, nasal congestion, rhinorrhea, sinus pain, ear pain Cardiovascular: No chest pain, palpitations, or leg edema Respiratory: No shortness of breath, wheezing, cough GI: see hpi MSK: No myalgia, back pain Neuro: No headaches, weakness, paresthesias Skin: No rashes or lesions EXAM: Constitutional - Awake and Alert, No apparent distress Eyes - PERRL Cardiovascular - S1S2, RRR, No edema Respiratory - Normal lung expansion, Normal respiratory effort, No respiratory distress, CTA bilaterally Extremities - no calf tenderness bilaterally, no swelling Skin - Warm/Dry Neurological - Alert & oriented x3 Psychological - Appropriate affect PFSH Medical History (Updated 02/09/25 @ 17:16 by LILIANE Garcia) GERD (gastroesophageal reflux disease) Hypertension Primary hyperparathyroidism Work-related stress Generalized anxiety disorder ADHD Severe obesity Surgical History Hx of gastric bypass Hx of tubal ligation Family History Maternal Aunt Breast cancer Family/Other Breast cancer Father Lung cancer HTN (hypertension) Maternal Grandfather Lung cancer Mother HTN (hypertension) Paternal Grandmother Diabetes Social History Household Members: Spouse and Children Housing: House Alcohol intake: current Alcohol intake frequency: holidays/special occasions only Patient Tobacco Use Status: Never used Tobacco e-Cigarette/Vaping Use: Never Used Current occupational status: employed 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 Vincent Roman, Aura Samaniego, Alistair Ta and colleagues, with an educational edd from [employer]. Physical exam (Primary Care) Vital Signs: Last Vital Signs Temp 97.3 F 02/09/25 15:48 Pulse 104 H 02/09/25 15:48 Resp 16 02/09/25 15:48 BP 135/92 H 02/09/25 16:02 Pulse Ox 98 02/09/25 15:48 Oxygen Delivery Method Room Air 02/09/25 15:48 BMI result Body Mass Index 36.5 Tobacco/Smoking Status: Tobacco use Status Tobacco use date assessed 12/25/24 02/09/25 15:34 Patient Tobacco Use Status Never used Tobacco 02/09/25 15:34 e-Cigarette/Vaping Use Never Used 02/09/25 15:34 Thrive Assessment: Date of Thrive Assessment Date Thrive assessed 12/25/24 02/09/25 15:34 Results AMB Test Urine AMB Test Urine Negative Last Edit by Sandy Castañeda CMA on 02/09/25 07:52 Coding Level of Care Code Est Pt Level 4 (05570) Diagnoses Hypertension I10 GERD (gastroesophageal reflux disease) K21.9 Assessment & Plan Assessment & Plan (1) Hypertension: Code(s): I10 - Essential (primary) hypertension Category: Medical Plan: Increase losartan to 50 mg daily as blood pressures remain uncontrolled. Suspect that her hyperparathyroidism is significantly impacting her blood pressures. Recommend checking blood pressures at home and reach out to the office with blood pressure readings in about 2 weeks. (2) GERD (gastroesophageal reflux disease): Code(s): K21.9 - Gastro-esophageal reflux disease without esophagitis Category: Medical Plan: Increase omeprazole to 40 mg twice daily. Follow-up with weight management clinic for consideration of EGD Plan Reach out to the office with blood pressure readings in about 2 weeks, further medication changes to be discussed at that time. Medications: New losartan 50 mg PO DAILY 90 tabs 0RF Changed From omeprazole 40 mg PO DAILY 180 caps 0RF To omeprazole 40 mg PO BID 180 caps 0RF Discontinued losartan Discontinued Reason: Doctor's Order 25 mg PO DAILY 90 tabs 0RF
[2025-02-09 15:48] VITALS: BP 140/90; PULSE 104; RESP 16; TEMP 36.3; O2SAT 98; BMI 36.5
[2025-02-09 16:02] VITALS: BP 135/92
--- OUTSIDE RECORDS SUMMARY | 2025-02-09 18:42 | XMS_ITS | Clinical Summary ---
Author Organization [facility] Address [address] [place] [address] Phone Care Team Providers Care Designer Architect Name Role Phone Mi Martins MD Primary Care Provider [phone] Social History Tobacco Use Types Packs/Day Years [...] PM EST Office Visit Bariatric Surgery - [address] [place] [address] Fahad Turner MD [address] [place] [address] Health Maintenance Due Date Last Done Comments [...] patient's age to complete this topic Insurance [facility] Care Teams Designer Architect Relationship Specialty Start Date End Date Mi Martins MD [address] [place] [address] PCP - General Internal Medicine 01/22/25
--- OUTSIDE RECORDS SUMMARY | 2025-02-09 18:42 | XMS_ITS | Clinical Summary ---
Author Organization [facility] Address [address] [place] [address] Phone Care Team Providers Care Manager Universal Name Role Phone Gage Diallo MD Primary [...] 25 Discontinu ed(No longer taking) vitamin A 03737 UNIT capsule TAKE 2 CAPSULES (20,000 UNITS [...] include 2 protein meal replacements such as Grenadian yogurt, cottage cheese, protein shake, or protein bar at 9 AM and 3 PM daily. At 12 PM and 6 PM daily the patient will consume 3 to 4 ounces of protein with 4 ounces of vegetables or small salad with not more than 2 tablespoons of a Kazakh or vinaigrette dressing. At the 6 PM [...] PM EDT Hospital Encounter [facility] [address] [place] [address] Marcella Simmons MD Discharge Disposition: Home or Self Care 01/19/2025 10:30 AM EDT Office Visit [facility] General Surgical Care [address] [place] [address] Marcella Simmons MD Intestinal malabsorption following gastrectomy (Primary Dx); Class 2 severe obesity due to excess calories with serious comorbidity and body mass index (BMI) of 36.0 to 36.9 in adult; Gastroesophageal reflux disease without esophagitis; Status post laparoscopic sleeve gastrectomy; Bariatric surgery status 12/25/2024 Telephone [employer] [facility] General Surgical Care [address] [place] [address] Marcella Simmons MD Appointment from Last [...] 02/22/2025 3:00 PM EDT Office Visit [facility] General Surgical Care [address] [place] [address] Marcella Simmons MD [address] [facility], 2nd [place] [address] [email or web address] Health Maintenance Due Date Last Done Comments [...] Zinc, S 78 60 - 106 mcg/dL [facility] Comment: (NOTE) ADDITIONAL INFORMATION This test was developed and its performance characteristics determined by [facility] in a manner consistent with CLIA requirements. This test has not been cleared or approved by the U.S. Food and Drug Administration. Blood 01/19/2025 11:3 6 AM EDT 01/19/2025 11:50 AM EDT Marcella Simmons MD LAB BLOOD ORDERABLES Final Result [facility] [address] [place] [address] * (ABNORMAL) Comprehensive metabolic panel (01/19/2025 11:36 AM EDT) SODIUM 136 133 - 146 mmol/L [facility] POTASSIUM 4.1 3.3 - 5.1 mmol/L [facility] CHLORIDE 103 96 - 108 mmol/L [facility] CO2 21 21 - 35 mmol/L [facility] BUN 10 6 - 19 mg/dL [facility] CREATININE 0.60 0.5 - 1.5 mg/dL [facility] GLUCOSE 96 70 - 99 mg/dL [facility] ALBUMIN 4.6 3.9 - 4.8 g/dL [facility] TOTAL PROTEIN 8.1(H) 6.5 - 8.0 g/dL [facility] CALCIUM 8.8 8.4 - 10.3 mg/dL [facility] ALKALINE PHOSPHATASE 70 39 - 117 U/L [facility] TOTAL BILIRUBIN 0.4 0.0 - 1.2 mg/dL [facility] AST 18 0 - 37 U/L [facility] ALT <5 0 - 40 U/L [facility] GLOBULIN 3.5 1 - 4.8 g/dL [facility] EGFR 120 >59 mL/min/1.7 3m2 [facility] Comment:Estimated glomerular filtration rate calculated using the CKD-EPI refit equation. ANION GAP 16 10 - 20 mmol/L [facility] Blood 01/19/2025 11:3 6 AM EDT 01/19/2025 11:50 AM EDT Marcella Simmons MD LAB BLOOD ORDERABLES Final Result Performing Organization Address City/[facility] Co de Phone Number [address] [address] * (ABNORMAL) Iron and iron binding capacity (01/19/2025 11:36 AM EDT) Pathologist [facility] IRON 35 30 - 160 ug/dL [facility] IRON BINDING CAPACITY 429(H) 228 - 428 ug/dL [facility] TRANSFERRIN SATURAT. 8(L) 15 - 50 % [facility] Blood 01/19/2025 11:3 6 AM EDT 01/19/2025 11:50 AM EDT Marcella Simmons MD LAB BLOOD ORDERABLES Final Result Performing Organization Address [facility] de Phone Number [address] [address] * Vitamin A (01/19/2025 11:36 AM EDT) [facility] VITAMIN A 36.4 32.5 - 78.0 mcg/dL [facility] Comment: (NOTE) ADDITIONAL INFORMATION This test was developed and its performance characteristics determined by [facility] in a manner consistent with CLIA requirements. This test has not been cleared or approved by the U.S. Food and Drug Administration. Blood 01/19/2025 11:3 6 AM EDT 01/19/2025 11:50 AM EDT us Marcella Simmons MD LAB BLOOD ORDERABLES Final Result Performing Organization Address [facility] Co de Phone Number [facility] [address] [place] [address] * (ABNORMAL) 25-OH vitamin D (01/19/2025 11:36 AM EDT) Pathologist [facility] 25 [place] VIT D (TOTAL) 28(L) 30 - 60 ng/mL [facility] Blood 01/19/2025 11:3 6 AM EDT 01/19/2025 11:50 AM EDT us Marcella Simmons MD LAB BLOOD ORDERABLES Final Result Performing Organization Address City/[facility]/ZIP Co de Phone Number [facility] [address] [place] [address] * Insulin Level (01/19/2025 11:36 AM EDT) INSULIN 16.6 2.6 - 25.0 uIU/mL [facility] Blood 01/19/2025 11:3 6 AM EDT 01/19/2025 11:50 AM EDT us Marcella Simmons MD LAB BLOOD ORDERABLES Final Result Performing Organization Address City/[facility] Co de Phone Number [address] [address] * (ABNORMAL) CBC (01/19/2025 11:36 AM EDT) WBC 8.43 4.00 - 11.00 K/uL [facility] RBC 4.67 4.00 - 5.20 M/uL [facility] HGB 10.1(L) 12.0 - 16.0 g/dL [facility] HCT 35.3(L) 36.0 - 46.0 % [facility] PLT 389 150 - 450 K/uL [facility] MCV 75.6(L) 80.0 - 100.0 fL [facility] MCH 21.6(L) 27.0 - 31.0 pg [facility] MCHC 28.6(L) 32.0 - 36.0 g/dL [facility] RDW 15.0(H) 11.5 - 14.5 % [facility] MPV 9.9 8.4 - 12.0 fL [facility] NRBC 0.00 0.00 /100 WBCs [facility] ABSOLUTE NRBC 0.00 0.00 K/uL [facility] Blood 01/19/2025 11:3 6 AM EDT 01/19/2025 11:50 AM EDT us Marcella Simmons MD LAB BLOOD ORDERABLES Final Result Performing Organization Address [facility] Co de Phone Number [address] [address] * C-Reactive Protein (01/19/2025 11:36 AM EDT) C REACTIVE PROTEIN <3.0 0.0 - 4.0 mg/L [facility] Blood 01/19/2025 11:3 6 AM EDT 01/19/2025 11:50 AM EDT us Marcella Simmons MD LAB BLOOD ORDERABLES Final Result Performing Organization Address [facility] de Phone Number [address] [address] * TSH (01/19/2025 11:36 AM EDT) TSH 1.79 0.27 - 4.20 uIU/mL [facility] Blood 01/19/2025 11:3 6 AM EDT 01/19/2025 11:50 AM EDT us Marcella Simmons MD LAB BLOOD ORDERABLES Final Result Performing Organization Address [facility] de Phone Number [address] [address] * Vitamin B1 (thiamine) (01/19/2025 11:36 AM EDT) VITAMIN B1 88 70 - 180 nmol/L [facility] Comment: (NOTE) ADDITIONAL INFORMATION This test was developed and its performance characteristics determined by [facility] in a manner consistent with CLIA requirements. This test has not been cleared or approved by the U.S. Food and Drug Administration. Blood 01/19/2025 11:3 6 AM EDT 01/19/2025 11:50 AM EDT Result Kassie Simmons MD LAB BLOOD ORDERABLES Final Result [facility] [address] [address] [place] [address] * (ABNORMAL) Parathyroid hormone (PTH) (01/19/2025 11:36 AM EDT) PARATHYROID HORMONE 133(H) 15 - 65 pg/mL [facility] Blood 01/19/2025 11:3 6 AM EDT 01/19/2025 11:50 AM EDT Result Kassie Simmons MD LAB BLOOD ORDERABLES Final Result Performing Organization Address [facility] Co de Phone Number [address] [address] * Hemoglobin A1c (01/19/2025 11:36 AM EDT) HEMOGLOBIN A1C 5.5 4.3 - 5.8 % [facility] Blood 01/19/2025 11:3 6 AM EDT 01/19/2025 11:50 AM EDT us Marcella Simmons MD LAB BLOOD ORDERABLES Final Result Performing Organization Address [facility]/ZIP Co de Phone Number [address] [address] * Vitamin B12 (01/19/2025 11:36 AM EDT) VITAMIN B12 1,114 232 - 1,245 pg/mL [facility] Blood 01/19/2025 11:3 6 AM EDT 01/19/2025 11:50 AM EDT us Marcella Simmons MD LAB BLOOD ORDERABLES Final Result Performing Organization Address City/[facility]/ZIP Co de Phone Number [address] [address] * (ABNORMAL) Lipid panel (01/19/2025 11:36 AM EDT) HDL 48 mg/dL [facility] Comment: Interpretation <40 mg/dL: Low HDL cholesterol (major risk factor for CHD) Greater than or equal to 60 mg/dL: High HDL cholesterol ( negative risk factor for CHD) HDL - cholesterol is affected by a number of factors, e.g. smoking, excerise, hormones, sex and age. CHOLESTEROL 149 0 - 240 mg/dL [facility] TRIGLYCERIDES 103 30 - 160 mg/dL [facility] LDL 80 50 - 129 mg/dL [facility] Comment: LDL levels in terms of risk for coronary heart disease: <100 mg/dL: Optimal 100-129 mg/dL: Near or above optimal 130-159 mg/dL: Borderline high 160-189 mg/dL: High >190 mg/dL: Very High CARDIAC RISK RATIO 3.1(L) 3.3 - 4.4 C [facility] Blood 01/19/2025 11:3 6 AM EDT 01/19/2025 11:50 AM EDT us Marcella Simmons MD LAB BLOOD ORDERABLES Final Result Performing Organization Address City/[facility] Co de Phone Number [address] [address] from Last 3 Months Insurance [facility] [place] [phone] Care Teams Manager Universal Relationship Specialty Start Date End Date Gage Diallo MD [address] [place] [address] [place] [address] PCP - General Internal Medicine 12/26/21 Additional Source Comments The information contained in this document represents components of the legal health record. It is not the complete legal health record.[facility]
--- OUTSIDE RECORDS SUMMARY | 2025-02-09 18:42 | XMS_ITS | Encounter Summary ---
Author Organization [facility] Address [address] [place] [address] [place] [phone] Phone Care Team Providers Care Outboard Motorboat Rigger Name Role Phone Gage Diallo MD Primary Care Provider Reason for Visit * Reason Onset Date Comments Appointment 12/25/2024 Encounter Details Date Type Department Care Team (Late st Contact Info) Description 12/25/2024 Telephone [employer] [facility] General Surgical Care [address] [place] [address] Marcella Simmons MD [address] [facility], 2nd [place] [address] [email or web address] Appointment Social History Tobacco Use [...] appt with . Please advise. Central Support Book Illustrator (Please do not reply to this user; this inbox is not monitored.) Thank you. documented in this encounter Plan of Treatment Upcoming Encounters Date Type Department Care Team (Late st Contact Info) Description 02/22/2025 3:00 PM EDT Office Visit [facility] General Surgical Care [address] [place] [address] Marcella Simmons MD [address] [facility], 2nd [place] [address] [email or web address] documented as of this encounter Visit Diagnoses Not on filedocumented in this encounter Care Teams Outboard Motorboat Rigger Relationship Specialty Start Date End Date Gage Diallo MD [address] [place] [address] [place] [address] PCP - General Internal Medicine 12/26/21 documented as of this encounter Additional Source Comments The information contained in this document represents components of the legal health record. It is not the complete legal health record.[facility]
== END 2025-02-09 16:07 | disposition home or self-care (01) ==
LOC: HO.HMCHD 15:45
PROVIDERS: PCP Physician Assistant; Visit Provider Physician Assistant
DX: I10 Essential (primary) hypertension (principal); K21.9 Gastro-esophageal reflux disease without esophagitis

== ENCOUNTER 2025-02-18 15:26 | Outpatient (REF) | payer OTHER, SELFPAY ==
--- NOTE | ~2025-02-18 | US_ITS ---
CLINICAL HISTORY: N93.9 - Abnormal uterine and vaginal bleeding, unspecified US pelvis transabdominal and transvaginal Comparison: None provided Findings: Transabdominal scanning performed for overall anatomy. Transvaginal scanning performed for additional detail. Anteverted uterus is 9.3 cm length. Normal myometrium. Endometrium 18 mm thickness. Right ovary 3.0 x 2.0 x 2.0 cm. Left ovary 2.0 x 2.0 x 1.5 cm. No free fluid. IMPRESSION: 1. Nonspecific endometrial prominence. Clinical follow-up recommended. 2. Evidence of ovarian torsion. This document has been electronically signed by: Prashanth Mercado MD on 02/19/2025 12:10:04
--- OUTSIDE RECORDS SUMMARY | 2025-02-18 19:15 | XMS_ITS | Encounter Summary ---
Author Organization [facility] Address [address] [place] [address] [place] [phone] Phone Care Team Providers Care Subsurface Augmentee Elint Operator Name Role Phone Gage Diallo MD Primary Care Provider Reason for Visit * Reason Onset Date Comments Appointment 12/25/2024 Encounter Details Date Type Department Care Team (Late st Contact Info) Description 12/25/2024 Telephone [employer] [facility] General Surgical Care [address] [place] [address] Marcella Simmons MD 15 [facility], 2nd [place] [address] [email or web address] Appointment Social History Tobacco Use Types Packs/Day [...] appt with . Please advise. Central Support Deburrer Machine (Please do not reply to this user; this inbox is not monitored.) Thank you. documented in this encounter Plan of Treatment Upcoming Encounters Date Type Department Care Team (Late st Contact Info) Description 02/22/2025 3:00 PM EDT Office Visit [facility] General Surgical Care [address] [place] [address] Marcella Simmons MD 15 [facility], 2nd [place] [address] [email or web address] documented as of this encounter Visit Diagnoses Not on filedocumented in this encounter Care Teams Subsurface Augmentee Elint Operator Relationship Specialty Start Date End Date Gage Diallo MD [address] [place] [address] [place] [address] PCP - General Internal Medicine 12/26/21 documented as of this encounter Additional Source Comments The information contained in this document represents components of the legal health record. It is not the complete legal health record.[facility]
--- OUTSIDE RECORDS SUMMARY | 2025-02-18 19:15 | XMS_ITS | Clinical Summary ---
Author Organization [facility] Address [address] [place] [id number] Phone Care Team Providers Care Special Education Professor Name Role Phone Gage Diallo MD Primary [...] mouth 2 (two) times a day. 08/08/2023 Active pantoprazole (PROTONIX) 40 MG tabletIndication s:Gastroesophage al reflux disease without esophagitis Take 1 tablet (40 mg total) by mouth daily. 30 tablet 6 08/30/2023 Active traZODone (DESYREL) 50 MG tablet TAKE 1 TABLET BY MOUTH EVERY DAY BEDTIME NEEDED FOR SLEEP 12/25/2024 Active Active Problems Problem Noted Date Diagnosed [...] her notes for prior authorization to use [employer] in about 3 to 4 months if [...] include 2 protein meal replacements such as Prydeinig yogurt, cottage cheese, protein shake, or protein [...] PM EDT Hospital Encounter [facility] [address] [place] [address] Marcella Simmons MD Discharge Disposition: Home or Self Care 01/19/2025 10:30 AM EDT Office Visit [facility] [address] [place] [address] [place] [address] Marcella Simmons MD Intestinal malabsorption following gastrectomy (Primary Dx); Class 2 severe obesity due to excess calories with serious comorbidity and body mass index (BMI) of 36.0 to 36.9 in adult; Gastroesophageal reflux disease without esophagitis; Status post laparoscopic sleeve gastrectomy; Bariatric surgery status 12/25/2024 Telephone [facility] [address] [place] [address] Marcella Simmons MD Appointment from Last 3 [...] Description 02/22/2025 3:00 PM EDT Office Visit [facility] [address] [place] [address] Marcella Simmons MD [address] [facility], 2nd [place] [address] [email or web address] Health Maintenance Due Date Last Done Comments Adult Td,Tdap Booster 1989 DEPRESSION SCREENING 2001 HEPATITIS C SCREENING 2007 HIV ONE-TIME SCREENING (18-6 5 YEARS) 2007 PAP SMEAR 2010 INFLUENZA VACCINE (#1) 2024 COVID-19 VACCINE (2024-2 6 season) 2025 CREATININE LEVEL 01/19/2026 01/19/2025, [...] Zinc, S 78 60 - 106 mcg/dL [facility]AN Comment: (NOTE) ADDITIONAL INFORMATION This test was developed and its performance characteristics determined by [facility] in a manner consistent with CLIA requirements. This test has not been cleared or approved by the U.S. Food and Drug Administration. Blood 01/19/2025 11:3 6 AM EDT 01/19/2025 11:50 AM EDT us Marcella Simmons MD LAB BLOOD ORDERABLES Final Result [facility] [address] [place] [address] * (ABNORMAL) Comprehensive metabolic panel (01/19/2025 11:36 AM EDT) SODIUM 136 133 - 146 mmol/L [facility] POTASSIUM 4.1 3.3 - 5.1 mmol/L [facility] CHLORIDE 103 96 - 108 mmol/L [facility] CO2 21 21 - 35 mmol/L [facility] BUN 10 6 - 19 mg/dL [facility] CREATININE 0.60 0.5 - 1.5 mg/dL [facility] GLUCOSE 96 70 - 99 mg/dL [facility] ALBUMIN 4.6 3.9 - 4.8 g/dL [facility] TOTAL PROTEIN 8.1(H) 6.5 - 8.0 g/dL [facility] CALCIUM 8.8 8.4 - 10.3 mg/dL [facility] ALKALINE PHOSPHATASE 70 39 - 117 U/L [facility] TOTAL BILIRUBIN 0.4 0.0 - 1.2 mg/dL [facility] AST 18 0 - 37 U/L [facility] ALT <5 0 - 40 U/L [facility] GLOBULIN 3.5 1 - 4.8 g/dL [facility] EGFR 120 >59 mL/min/1.7 3m2 [facility] Comment:Estimated glomerular filtration rate calculated using the CKD-EPI refit equation. ANION GAP 16 10 - 20 mmol/L [facility] Blood 01/19/2025 11:3 6 AM EDT 01/19/2025 11:50 AM EDT us Marcella Simmons MD LAB BLOOD ORDERABLES Final Result [facility] [address] [place] [address] * (ABNORMAL) Iron and iron binding capacity (01/19/2025 11:36 AM EDT) IRON 35 30 - 160 ug/dL [facility] IRON BINDING CAPACITY 429(H) 228 - 428 ug/dL [facility] TRANSFERRIN SATURAT. 8(L) 15 - 50 % [facility] Blood 01/19/2025 11:3 6 AM EDT 01/19/2025 11:50 AM EDT us Marcella Simmons MD LAB BLOOD ORDERABLES Final Result Performing Organization Address [facility] Co de Phone Number [address] [address] * Vitamin A (01/19/2025 11:36 AM EDT) [facility] VITAMIN A 36.4 32.5 - 78.0 mcg/dL [facility] MED/PATH [facility] Comment: (NOTE) ADDITIONAL INFORMATION This test was developed and its performance characteristics determined by [facility] in a manner consistent with CLIA requirements. This test has not been cleared or approved by the U.S. Food and Drug Administration. Blood 01/19/2025 11:3 6 AM EDT 01/19/2025 11:50 AM EDT us Marcella Simmons MD LAB BLOOD ORDERABLES Final Result Performing Organization Address [facility] Phone Number [facility] LAB MED/PATH [facility] [address] [place] [address] * (ABNORMAL) 25-OH vitamin D (01/19/2025 11:36 AM EDT) [facility] 25 [place] VIT D (TOTAL) 28(L) 30 - 60 ng/mL [facility] Blood 01/19/2025 11:3 6 AM EDT 01/19/2025 11:50 AM EDT us Marcella Simmons MD LAB BLOOD ORDERABLES Final Result Performing Organization Address [facility] Co de Phone Number [address] [address] * Insulin Level (01/19/2025 11:36 AM EDT) INSULIN 16.6 2.6 - 25.0 uIU/mL [facility] Blood 01/19/2025 11:3 6 AM EDT 01/19/2025 11:50 AM EDT Marcella Simmons MD LAB BLOOD ORDERABLES Final Result [address] [address] * (ABNORMAL) CBC (01/19/2025 11:36 AM EDT) WBC 8.43 4.00 - 11.00 K/uL [facility] RBC 4.67 4.00 - 5.20 M/uL [facility] HGB 10.1(L) 12.0 - 16.0 g/dL [facility] HCT 35.3(L) 36.0 - 46.0 % [facility] PLT 389 150 - 450 K/uL [facility] MCV 75.6(L) 80.0 - 100.0 fL [facility] MCH 21.6(L) 27.0 - 31.0 pg [facility] MCHC 28.6(L) 32.0 - 36.0 g/dL [facility] RDW 15.0(H) 11.5 - 14.5 % [facility] MPV 9.9 8.4 - 12.0 fL [facility] NRBC 0.00 0.00 /100 WBCs [facility] ABSOLUTE NRBC 0.00 0.00 K/uL [facility] Blood 01/19/2025 11:3 6 AM EDT 01/19/2025 11:50 AM EDT us Marcella Simmons MD LAB BLOOD ORDERABLES Final Result [facility] [address] [place] [address] * C-Reactive Protein (01/19/2025 11:36 AM EDT) C REACTIVE PROTEIN <3.0 0.0 - 4.0 mg/L [facility] Blood 01/19/2025 11:3 6 AM EDT 01/19/2025 11:50 AM EDT us Marcella Simmons MD LAB BLOOD ORDERABLES Final Result Performing Organization Address [facility] Co de Phone Number [address] [address] * TSH (01/19/2025 11:36 AM EDT) TSH 1.79 0.27 - 4.20 uIU/mL [facility] Blood 01/19/2025 11:3 6 AM EDT 01/19/2025 11:50 AM EDT us Marcella Simmons MD LAB BLOOD ORDERABLES Final Result Performing Organization Address [facility] de Phone Number [address] [address] * Vitamin B1 (thiamine) (01/19/2025 11:36 AM EDT) VITAMIN B1 88 70 - 180 nmol/L [facility] Comment: (NOTE) ADDITIONAL INFORMATION This test was developed and its performance characteristics determined by [facility] in a manner consistent with CLIA requirements. This test has not been cleared or approved by the U.S. Food and Drug Administration. Blood 01/19/2025 11:3 6 AM EDT 01/19/2025 11:50 AM EDT us Marcella Simmons MD LAB BLOOD ORDERABLES Final Result Performing Organization Address [facility] Co de Phone Number [facility] [address] [place] [address] * (ABNORMAL) Parathyroid hormone (PTH) (01/19/2025 11:36 AM EDT) PARATHYROID HORMONE 133(H) 15 - 65 pg/mL [facility] Blood 01/19/2025 11:3 6 AM EDT 01/19/2025 11:50 AM EDT us Marcella Simmons MD LAB BLOOD ORDERABLES Final Result Performing Organization Address City/[facility]/ZIP Co de Phone Number [address] [address] * Hemoglobin A1c (01/19/2025 11:36 AM EDT) HEMOGLOBIN A1C 5.5 4.3 - 5.8 % [facility] Blood 01/19/2025 11:3 6 AM EDT 01/19/2025 11:50 AM EDT us Marcella Simmons MD LAB BLOOD ORDERABLES Final Result Performing Organization Address [facility]/ZIP Co de Phone Number [address] [address] * Vitamin B12 (01/19/2025 11:36 AM EDT) VITAMIN B12 1,114 232 - 1,245 pg/mL [facility] Blood 01/19/2025 11:3 6 AM EDT 01/19/2025 11:50 AM EDT us Marcella Simmons MD LAB BLOOD ORDERABLES Final Result Performing Organization Address [facility] Co de Phone Number [address] [address] * (ABNORMAL) Lipid panel (01/19/2025 11:36 AM EDT) HDL 48 mg/dL [facility] Comment: Interpretation <40 mg/dL: Low HDL cholesterol (major risk factor for CHD) Greater than or equal to 60 mg/dL: High HDL cholesterol ( negative risk factor for CHD) HDL - cholesterol is affected by a number of factors, e.g. smoking, excerise, hormones, sex and age. CHOLESTEROL 149 0 - 240 mg/dL [facility] TRIGLYCERIDES 103 30 - 160 mg/dL [facility] LDL 80 50 - 129 mg/dL [facility] Comment: LDL levels in terms of risk for coronary heart disease: <100 mg/dL: Optimal 100-129 mg/dL: Near or above optimal 130-159 mg/dL: Borderline high 160-189 mg/dL: High >190 mg/dL: Very High CARDIAC RISK RATIO 3.1(L) 3.3 - 4.4 [facility] Blood 01/19/2025 11:3 6 AM EDT 01/19/2025 11:50 AM EDT us Marcella Simmons MD LAB BLOOD ORDERABLES Final Result [facility] [address] [place] [address] from Last 3 Months Insurance [facility] [place] [place] [facility] [place] [facility] [place] [facility] [place] [facility] Care Teams Special Education Professor Relationship Specialty Start Date End Date Gage Diallo MD [address] [place] [address] [place] [address] PCP - General Internal Medicine 12/26/21 Additional Source Comments The information contained in this document represents components of the legal health record. It is not the complete legal health record.[facility]
--- OUTSIDE RECORDS SUMMARY | 2025-02-18 19:15 | XMS_ITS | Clinical Summary ---
Author Organization [facility] Address [address] [place] [address] Phone Care Team Providers Care Vocal Music Instructor Name Role Phone Mi Martins MD Primary Care Provider [phone] Social History Tobacco Use Types Packs/Day Years [...] PM EST Office Visit Bariatric Surgery - [address] [place] [address] Fahad Turner MD [address] [place] [address] Health Maintenance Due Date Last Done Comments [...] patient's age to complete this topic Insurance [place] [address] Care Teams Vocal Music Instructor Relationship Specialty Start Date End Date Mi Martins MD [address] [place] [address] PCP - General Internal Medicine 01/22/25
== END 2025-02-18 15:27 | disposition home or self-care (01) ==
LOC: HO.HMGCX 15:26
PROVIDERS: PCP Physician Assistant; Visit Provider Obstetrics & Gynecology
DX: N93.9 Abnormal uterine and vaginal bleeding, unspecified (principal)
CPT/HCPCS: 76830; 76856

== ENCOUNTER → 2025-02-18 15:41 | Outpatient (BNV) | payer OTHER, SELFPAY | PROVIDERS: PCP Physician Assistant; Visit Provider Specialist | DX: N93.9 Abnormal uterine and vaginal bleeding, unspecified (principal) | CPT/HCPCS: 76830; 76856 ==

== ENCOUNTER 2025-02-24 11:10 | Outpatient (AMB) | payer OTHER, SELFPAY ==
--- NOTE | 2025-02-24 11:11 | A.OFFPC_ITS ---
Vital Signs 02/24/25 11:15 Height 5 ft 3.58 in Weight 93.894 kg BMI 36.0 BP 144/96 H Blood Pressure Location Lt brachial Position Sitting Respiration 16 Pulse 84 Pulse Source Pulse Oximeter Temp 97.5 F Temp Source Temporal Artery Scan Pulse Oximetry (%) 98 Oxygen Delivery Method Room Air Intake Visit Reasons: Sinus pressure Tip Stitcher Required: No Accompanied by: Self / Same As Patient Allergies clindamycin (CLINDAMYCIN) Allergy (Intermediate, Verified 02/24/25 11:12) HIVES Clindamycin Allergy (Unknown, Uncoded 02/09/25 07:36) Hives Medication List - Last Reconciled 02/24/25 by LILIANE Garcia acetaminophen (Tylenol) 325 mg PO QID PRN amoxicillin-pot clavulanate 875-125 mg 1 tab PO BID cholecalciferol (vitamin D3) 50 mcg PO DAILY ferrous sulfate 325 mg PO DAILY 90 days loratadine (Allergy Relief (loratadine)) 10 mg PO DAILY losartan 50 mg PO DAILY omeprazole 40 mg PO BID trazodone 50 mg PO BEDTIME PRN Tobacco use date assessed: 12/25/24 HPI HPI Comments History of Present Illness Details 34-year-old female with history of hyper parathyroidism, depression/anxiety, insomnia, iron-deficiency anemia, obesity, hypertension presenting to the office today for evaluation of upper respiratory symptoms ongoing for 3 days. Reports pressure behind the eyes bilaterally, worsens if leaning forward. Reports feeling congested in the right nostril with rhinorrhea bilaterally. Feels throat irritation and some painful swallowing. As body aches. Reports temperatures up to 100. 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 Denies any shaking chills, otalgia, cough. Does report she has known history of nasal polyps with chronic congestion and often mouth breathe, interested in referral to ENT. Negative for COVID-19 on home test. Has been using tylenol cold/flu, ibuprofen, myquil/dayquil (not altogether). ROS: see hpi EXAM: Constitutional - Awake and Alert, No apparent distress Eyes - PERRL Years-external ears normal, canals clear, TMs pearly méndez with good cone of light and intact Nose- septum midline. Pale, boggy R turbinates. L turbinates mildly erythematous and swollen. Clear drainage. Frontal sinus tenderness to percussion Mouth/throat-no erythema or exudate. S/p tonsillectomy Cardiovascular - S1S2, RRR, No edema Respiratory - Normal lung expansion, Normal respiratory effort, No respiratory distress, CTA bilaterally Extremities - no calf tenderness bilaterally, no swelling Skin - Warm/Dry Neurological - Alert & oriented x3 Psychological - Appropriate affect [facility] Medical History (Updated 02/24/25 @ 11:32 by LILIANE Garcia) GERD (gastroesophageal reflux disease) Hypertension Primary hyperparathyroidism Work-related stress Generalized anxiety disorder ADHD Severe obesity Surgical History Hx of gastric bypass Hx of tubal ligation Family History Maternal Aunt Breast cancer Family/Other Breast cancer Father Lung cancer HTN (hypertension) Maternal Grandfather Lung cancer Mother HTN (hypertension) Paternal Grandmother Diabetes Social History Household Members: Spouse and Children Housing: House Alcohol intake: current Alcohol intake frequency: holidays/special occasions only Patient Tobacco Use Status: Never used Tobacco e-Cigarette/Vaping Use: Never Used Current occupational status: employed 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 Vincent Roman, Aura Samaniego, Alistair Ta and colleagues, with an educational edd from [employer]. Physical exam (Primary Care) Vital Signs: Last Vital Signs Temp 97.5 F 02/24/25 11:15 Pulse 84 02/24/25 11:15 Resp 16 02/24/25 11:15 BP 144/96 H 02/24/25 11:15 Pulse Ox 98 02/24/25 11:15 Oxygen Delivery Method Room Air 02/24/25 11:15 BMI result Body Mass Index 36.0 Tobacco/Smoking Status: Tobacco use Status Tobacco use date assessed 12/25/24 02/24/25 11:14 Patient Tobacco Use Status Never used Tobacco 02/24/25 11:14 e-Cigarette/Vaping Use Never Used 02/24/25 11:14 Thrive Assessment: Date of Thrive Assessment Date Thrive assessed 12/25/24 02/24/25 11:14 Coding Level of Care Code Est Pt Level 4 (92193) Diagnoses Viral sinusitis J32.9; B97.89 Nasal polyps J33.9 Assessment & Plan Assessment & Plan (1) Viral sinusitis: Code(s): J32.9 - Chronic sinusitis, unspecified; B97.89 - Other viral agents as the cause of diseases classified elsewhere Category: Medical Plan: Discussed the high likelihood of viral etiology which would not necessitate antibiotics. Recommend conservative therapies. Can use antihistamine and nasal rinses throughout the day. Can can continue using Tylenol/ibuprofen for discomfort and OTC guaifenesin or decongestants. She is counseled against using Tylenol when taking medications such as NyQuil or DayQuil. She is advised that if symptoms still ongoing after 10-14 days or if symptoms improve then worsen, she can use augmentin as prescribed. Counseled on side effects. Work note provided. (2) Nasal polyps: Code(s): J33.9 - Nasal polyp, unspecified Category: Medical Plan: Referred to ENT Plan Follow-up in the office in 6 months. Orders: Referrals Ear/Nose/Throat Referral B97.89 - Other viral agents as the cause of diseases classified elsewhere, J32.9 - Chronic sinusitis, unspecified, J33.9 - Nasal polyp, unspecified, R06.5 - Mouth breathing, R09.81 - Nasal congestion Medications: New amoxicillin-pot clavulanate 875-125 mg 1 tab PO BID 14 tabs 0RF loratadine (Allergy Relief (loratadine)) 10 mg PO DAILY 90 tabs 0RF
[2025-02-24 11:15] VITALS: BP 144/96; PULSE 84; RESP 16; TEMP 36.4; O2SAT 98; BMI 36.0
--- OUTSIDE RECORDS SUMMARY | 2025-02-24 15:12 | XMS_ITS | Clinical Summary ---
Author Organization [facility] Address [address] [place] [address] Phone Care Team Providers Care Intermodal Dispatcher Name Role Phone Mi Martins MD Primary Care Provider [phone] Social History Tobacco Use Types Packs/Day Years [...] PM EST Office Visit Bariatric Surgery - [address] [place] [address] Fahad Turner MD [address] [place] [address] Health Maintenance Due Date Last Done Comments [...] patient's age to complete this topic Insurance [facility] Care Teams Intermodal Dispatcher Relationship Specialty Start Date End Date Mi Martins MD [address] [place] [address] PCP - General Internal Medicine 01/22/25
== END 2025-02-24 11:44 | disposition home or self-care (01) ==
LOC: HO.HMCHD 11:11
PROVIDERS: PCP Physician Assistant; Visit Provider Physician Assistant
DX: J32.9 Chronic sinusitis, unspecified (principal); B97.89 Other viral agents as the cause of diseases classified elsewhere; J33.9 Nasal polyp, unspecified

== ENCOUNTER → 2025-02-24 11:10 | Outpatient (BNVA) | payer OTHER, SELFPAY | PROVIDERS: PCP Physician Assistant; Visit Provider Physician Assistant | DX: B97.89 Other viral agents as the cause of diseases classified elsewhere (principal); J32.9 Chronic sinusitis, unspecified; J33.9 Nasal polyp, unspecified | CPT/HCPCS: 99212 ==

== ENCOUNTER 2025-03-02 08:18 | Outpatient (REF) | payer OTHER, SELFPAY | END 2025-03-02 08:19 | disposition home or self-care (01) | LOC: HO.LNP 08:18 | PROVIDERS: PCP Physician Assistant; Visit Provider Obstetrics & Gynecology | DX: N93.9 Abnormal uterine and vaginal bleeding, unspecified (principal); Z98.51 Tubal ligation status | CPT/HCPCS: 58100; 88305 ==

== ENCOUNTER 2025-03-02 08:18 | Outpatient (AMB) | payer OTHER, SELFPAY ==
--- NOTE | 2025-03-02 08:40 | MHC.OFFVIS ---
Vital Signs 03/02/25 08:47 Height 5 ft 3 in Weight 207 lb BMI 36.7 BP 144/96 H Intake Visit Reasons: EMB/ ultrasound results Wool Carder Required: No Information Interpreted: non-clinical & clinical Stitcher Set Up Operator Automatic: Stitcher Set Up Operator Automatic Present ([place]) Allergies clindamycin (CLINDAMYCIN) Allergy (Intermediate, Verified 02/24/25 11:12) HIVES Clindamycin Allergy (Unknown, Uncoded 02/09/25 07:36) Hives Is last menstrual period known: Yes HPI Comments Details: Presenting for EMB [facility] Medical History GERD (gastroesophageal reflux disease) Hypertension Primary hyperparathyroidism Work-related stress Generalized anxiety disorder ADHD Severe obesity Surgical History Hx of gastric bypass Hx of tubal ligation Family History Maternal Aunt Breast cancer Family/Other Breast cancer Father Lung cancer HTN (hypertension) Maternal Grandfather Lung cancer Mother HTN (hypertension) Paternal Grandmother Diabetes Social History Household Members: Spouse and Children Housing: House Alcohol intake: current Alcohol intake frequency: holidays/special occasions only Patient Tobacco Use Status: Never used Tobacco e-Cigarette/Vaping Use: Never Used Current occupational status: employed 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 Sexual orientation: Straight/Heterosexual Gender identity: Female Review of Systems Const All systems reviewed & are unremarkable except as noted in HPI and below Reports as per HPI and Reports no additional complaints GI Reports no additional complaints Reports no additional complaints Physical Exam Vital Signs: Last Vital Signs BP 144/96 H 03/02/25 08:47 BMI result Body Mass Index 36.7 Office Procedures Endometrial Biopsy Details: The patient was counseled regarding the indication and benefits of endometrial sampling to rule out endometrial pathology including not limited to endometrial hyperplasia or endometrial cancer and others; The alternatives (Either do nothing vs. hysteroscopy D&C) & the risks were discussed with the patient including but not limited: pain, uterine perforation, bleeding, infection, possible injury to bladder, bowel, ureter, possible need for blood transfusion with all its possible risks. The patient verbalized understanding all questions answered and signed consent. Urine test done in the office was negative The patient was placed into the dorsal lithotomy position; a speculum was inserted in the vagina. Using aseptic technique for the procedure, the cervix was cleansed with Betadine. The anterior lip of the cervix was grasped with a single tooth tenaculum. The uterus was sounded to 7 cm with a 4 mm Pipelle was used. Tissues samples were obtained and placed in formalin, in a patient labeled container and sent to the pathology department. At the end of the procedure, there was minimal bleeding noted The patient tolerated the procedure well and was discharged in good condition with the following instructions: Nothing in the vagina until the bleeding stops. No sex until the bleeding stops, to call if any of the following occurs: fever (>100.4), flu-like symptoms, abdominal pain, heavy bleeding, four smelling vaginal discharge. The patient was instructed to schedule a Follow up appointment in 2 weeks to discuss pathology results of the biopsy and treatment options. This note was generated with a voice recognition program. Some errors may have been overlooked during the review of this note. Sometimes these errors may affect the content or meaning of a given sentence. [id number] Biopsy Assessment & Plan Assessment & Plan (1) Abnormal uterine bleeding (AUB): Code(s): N93.9 - Abnormal uterine and vaginal bleeding, unspecified Category: Medical Plan: EMB done, see procedure note Orders: Orders AMB Endometrial Biopsy Today N93.9 - Abnormal uterine and vaginal bleeding, unspecified Coding Level of Care Code Procedure Only Diagnoses Abnormal uterine bleeding (AUB) N93.9 CPT Codes Endometrial Biopsy - CPT: 02798-[id number] Biopsy ([id number])
[2025-03-02 08:47] VITALS: BP 144/96; BMI 36.7
--- OUTSIDE RECORDS SUMMARY | 2025-03-02 08:50 | XMS_ITS | Encounter Summary ---
Author Organization [facility] Address [address] [place] [address] [place] [phone] Phone Care Team Providers Care Instrumentation Technician Name Role Phone Gage Diallo MD Primary Care Provider Reason for Visit * Reason Onset Date Comments Appointment 12/25/2024 Encounter Details Date Type Department Care Team (Late st Contact Info) Description 12/25/2024 Telephone [facility] General Surgical Care [address] [place] [address] Marcella Simmons MD [address] [facility], 2nd [place] [address] [email or web address] Appointment Social History Tobacco Use Types Packs/Day [...] appt with . Please advise. Central Support Computer Programmer (Please do not reply to this user; this inbox is not monitored.) Thank you. documented in this encounter Plan of Treatment Not on file documented as of this encounter Visit Diagnoses Not on filedocumented in this encounter Care Teams Instrumentation Technician Relationship Specialty Start Date End Date Gage Diallo MD [address] [place] [address] [place] [address] PCP - General Internal Medicine 12/26/21 documented as of this encounter Additional Source Comments The information contained in this document represents components of the legal health record. It is not the complete legal health record.[facility]
--- OUTSIDE RECORDS SUMMARY | 2025-03-02 08:51 | XMS_ITS | Clinical Summary ---
Author Organization [facility] Address [address] [place] [address] Phone Care Team Providers Care Infection Control Practitioner Name Role Phone Mi Martins MD Primary Care Provider Social History Tobacco Use Types Packs/Day Years [...] PM EST Office Visit Bariatric Surgery - [address] [place] [address] Fahad Turner MD [address] [place] [address] Health Maintenance Due Date Last Done Comments [...] patient's age to complete this topic Insurance [facility] [place] [address] Care Teams Infection Control Practitioner Relationship Specialty Start Date End Date Mi Martins MD [address] [place] [address] PCP - General Internal Medicine 01/22/25
--- OUTSIDE RECORDS SUMMARY | 2025-03-02 08:51 | XMS_ITS | Clinical Summary ---
Author Organization [facility] Address [address] [place] [address] Phone Care Team Providers Care Seed Corn Manager Production Name Role Phone Gage Diallo MD Primary [...] her notes for prior authorization to use Evaneos in about 3 to 4 months if [...] include 2 protein meal replacements such as Chilean yogurt, cottage cheese, protein shake, or protein bar at 9 AM and 3 PM daily. At 12 PM and 6 PM daily the patient will consume 3 to 4 ounces of protein with 4 ounces of vegetables or small salad with not more than 2 tablespoons of a German or vinaigrette dressing. At the 6 PM [...] PM EDT Hospital Encounter [facility] [address] [place] [address] Marcella Simmons MD Discharge Disposition: Home or Self Care 01/19/2025 10:30 AM EDT Office Visit [facility] General Surgical Care [address] [place] [address] [place] [address] Marcella Simmons MD Intestinal malabsorption following gastrectomy (Primary Dx); Class 2 severe obesity due to excess calories with serious comorbidity and body mass index (BMI) of 36.0 to 36.9 in adult; Gastroesophageal reflux disease without esophagitis; Status post laparoscopic sleeve gastrectomy; Bariatric surgery status 12/25/2024 Telephone [facility] General Surgical Care [address] [place] [address] Marcella Simmons MD Appointment from Last 3 [...] 01/19/2025 10:00 AM EDT Plan of Treatment Health Maintenance Due [...] Zinc, S 78 60 - 106 mcg/dL [facility] Comment: (NOTE) ADDITIONAL INFORMATION This test was developed and its performance characteristics determined by [facility] in a manner consistent with CLIA requirements. This test has not been cleared or approved by the U.S. Food and Drug Administration. Blood 01/19/2025 11:3 6 AM EDT 01/19/2025 11:50 AM EDT us Marcella Simmons MD LAB BLOOD ORDERABLES Final Result [facility] [address] [place] [address] * (ABNORMAL) Comprehensive metabolic panel (01/19/2025 11:36 AM EDT) SODIUM 136 133 - 146 mmol/L [facility] POTASSIUM 4.1 3.3 - 5.1 mmol/L [facility] CHLORIDE 103 96 - 108 mmol/L [facility] CO2 21 21 - 35 mmol/L [facility] BUN 10 6 - 19 mg/dL [facility] CREATININE 0.60 0.5 - 1.5 mg/dL [facility] GLUCOSE 96 70 - 99 mg/dL [facility] ALBUMIN 4.6 3.9 - 4.8 g/dL [facility] TOTAL PROTEIN 8.1(H) 6.5 - 8.0 g/dL [facility] CALCIUM 8.8 8.4 - 10.3 mg/dL [facility] ALKALINE PHOSPHATASE 70 39 - 117 U/L [facility] TOTAL BILIRUBIN 0.4 0.0 - 1.2 mg/dL [facility] AST 18 0 - 37 U/L [facility] ALT <5 0 - 40 U/L [facility] GLOBULIN 3.5 1 - 4.8 g/dL [facility] EGFR 120 >59 mL/min/1.7 3m2 [facility] Comment:Estimated glomerular filtration rate calculated using the CKD-EPI refit equation. ANION GAP 16 10 - 20 mmol/L [facility] Blood 01/19/2025 11:3 6 AM EDT 01/19/2025 11:50 AM EDT Marcella Simmons MD LAB BLOOD ORDERABLES Final Result [address] [address] * (ABNORMAL) Iron and iron binding capacity (01/19/2025 11:36 AM EDT) IRON 35 30 - 160 ug/dL [facility] IRON BINDING CAPACITY 429(H) 228 - 428 ug/dL [facility] TRANSFERRIN SATURAT. 8(L) 15 - 50 % [facility] Blood 01/19/2025 11:3 6 AM EDT 01/19/2025 11:50 AM EDT us Marcella Simmons MD LAB BLOOD ORDERABLES Final Result [address] [address] * Vitamin A (01/19/2025 11:36 AM EDT) VITAMIN A 36.4 32.5 - 78.0 mcg/dL [facility] Comment: (NOTE) ADDITIONAL INFORMATION This test was developed and its performance characteristics determined by [facility] in a manner consistent with CLIA requirements. This test has not been cleared or approved by the U.S. Food and Drug Administration. Blood 01/19/2025 11:3 6 AM EDT 01/19/2025 11:50 AM EDT us Marcella Simmons MD LAB BLOOD ORDERABLES Final Result Performing Organization Address City/[facility] [address]/ZIP Co de Phone Number [facility] [address] [place] [address] * (ABNORMAL) 25-[place] vitamin D (01/19/2025 11:36 AM EDT) 25 [place] VIT D (TOTAL) 28(L) 30 - 60 ng/mL [facility] Blood 01/19/2025 11:3 6 AM EDT 01/19/2025 11:50 AM EDT us Marcella Simmons MD LAB BLOOD ORDERABLES Final Result Performing Organization Address City/[facility] [address]/ZIP Co de Phone Number [facility] [address] [place] [address] * Insulin Level (01/19/2025 11:36 AM EDT) INSULIN 16.6 2.6 - 25.0 uIU/mL [facility] Blood 01/19/2025 11:3 6 AM EDT 01/19/2025 11:50 AM EDT us Marcella Simmons MD LAB BLOOD ORDERABLES Final Result [address] [place] [address] * (ABNORMAL) CBC (01/19/2025 11:36 AM EDT) WBC 8.43 4.00 - 11.00 K/uL [facility] RBC 4.67 4.00 - 5.20 M/uL [facility] HGB 10.1(L) 12.0 - 16.0 g/dL [facility] HCT 35.3(L) 36.0 - 46.0 % [facility] PLT 389 150 - 450 K/uL [facility] MCV 75.6(L) 80.0 - 100.0 fL [facility] MCH 21.6(L) 27.0 - 31.0 pg [facility] MCHC 28.6(L) 32.0 - 36.0 g/dL [facility] RDW 15.0(H) 11.5 - 14.5 % [facility] MPV 9.9 8.4 - 12.0 fL [facility] NRBC 0.00 0.00 /100 WBCs [facility] ABSOLUTE NRBC 0.00 0.00 K/uL [facility] Blood 01/19/2025 11:3 6 AM EDT 01/19/2025 11:50 AM EDT us Marcella Simmons MD LAB BLOOD ORDERABLES Final Result Performing Organization Address City/[facility] [address]/[facility] Co de Phone Number [address] [address] * C-Reactive Protein (01/19/2025 11:36 AM EDT) C REACTIVE PROTEIN <3.0 0.0 - 4.0 mg/L [facility] Blood 01/19/2025 11:3 6 AM EDT 01/19/2025 11:50 AM EDT us Marcella Simmons MD LAB BLOOD ORDERABLES Final Result Performing Organization Address City/[facility] [address]/ZIP Co de Phone Number [address] [address] * TSH (01/19/2025 11:36 AM EDT) TSH 1.79 0.27 - 4.20 uIU/mL [facility] Blood 01/19/2025 11:3 6 AM EDT 01/19/2025 11:50 AM EDT Marcella Simmons MD LAB BLOOD ORDERABLES Final Result Performing Organization Address City/[facility] [address]/[facility] Co de Phone Number [facility] [address] [place] [address] * Vitamin B1 (thiamine) (01/19/2025 11:36 AM EDT) VITAMIN B1 88 70 - 180 nmol/L [facility] Comment: (NOTE) ADDITIONAL INFORMATION This test was developed and its performance characteristics determined by [facility] in a manner consistent with CLIA requirements. This test has not been cleared or approved by the U.S. Food and Drug Administration. Blood 01/19/2025 11:3 6 AM EDT 01/19/2025 11:50 AM EDT us Marcella Simmons MD LAB BLOOD ORDERABLES Final Result Performing Organization Address [facility] [address]/[facility] de Phone Number [facility] [address] [place] [address] * (ABNORMAL) Parathyroid hormone (PTH) (01/19/2025 11:36 AM EDT) PARATHYROID HORMONE 133(H) 15 - 65 pg/mL [facility] Blood 01/19/2025 11:3 6 AM EDT 01/19/2025 11:50 AM EDT us Marcella Simmons MD LAB BLOOD ORDERABLES Final Result [address] [address] * Hemoglobin A1c (01/19/2025 11:36 AM EDT) HEMOGLOBIN A1C 5.5 4.3 - 5.8 % [facility] Blood 01/19/2025 11:3 6 AM EDT 01/19/2025 11:50 AM EDT us Marcella Simmons MD LAB BLOOD ORDERABLES Final Result Performing Organization Address [facility] [address]/ZIP Co de Phone Number [address] [address] * Vitamin B12 (01/19/2025 11:36 AM EDT) VITAMIN B12 1,114 232 - 1,245 pg/mL [facility] Blood 01/19/2025 11:3 6 AM EDT 01/19/2025 11:50 AM EDT us Marcella Simmons MD LAB BLOOD ORDERABLES Final Result Performing Organization Address [facility] [address]/[facility] Co de Phone Number [address] [address] * (ABNORMAL) Lipid panel (01/19/2025 11:36 AM EDT) HDL 48 mg/dL [facility] Comment: Interpretation <40 mg/dL: Low HDL cholesterol (major risk factor for CHD) Greater than or equal to 60 mg/dL: High HDL cholesterol ( negative risk factor for CHD) HDL - cholesterol is affected by a number of factors, e.g. smoking, excerise, hormones, sex and age. CHOLESTEROL 149 0 - 240 mg/dL [facility] TRIGLYCERIDES 103 30 - 160 mg/dL [facility] LDL 80 50 - 129 mg/dL [facility] Comment: LDL levels in terms of risk for coronary heart disease: <100 mg/dL: Optimal 100-129 mg/dL: Near or above optimal 130-159 mg/dL: Borderline high 160-189 mg/dL: High >190 mg/dL: Very High CARDIAC RISK RATIO 3.1(L) 3.3 - 4.4 C [facility] Blood 01/19/2025 11:3 6 AM EDT 01/19/2025 11:50 AM EDT us Marcella Simmons MD LAB BLOOD ORDERABLES Final Result [facility] [address] [place] [address] from Last 3 Months Insurance [facility] [place] [facility] [place] [facility] [place] [facility] [facility] Care Teams Seed Corn Manager Production Relationship Specialty Start Date End Date Gage Diallo MD [address] [place] [address] [place] [address] PCP - General Internal Medicine 12/26/21 Additional Source Comments The information contained in this document represents components of the legal health record. It is not the complete legal health record.[facility]
== END 2025-03-02 08:59 | disposition home or self-care (01) ==
LOC: HO.HWS 08:18
PROVIDERS: PCP Physician Assistant; Visit Provider Obstetrics & Gynecology
DX: N93.9 Abnormal uterine and vaginal bleeding, unspecified (principal)
CPT/HCPCS: 58100

== ENCOUNTER → 2025-03-16 15:09 | Outpatient (BNVA) | payer OTHER, SELFPAY | PROVIDERS: PCP Physician Assistant; Visit Provider Obstetrics & Gynecology | DX: N25.81 Secondary hyperparathyroidism of renal origin (principal); E05.80 Other thyrotoxicosis without thyrotoxic crisis or storm | CPT/HCPCS: 99212 ==

== ENCOUNTER 2025-03-16 16:06 | Outpatient (AMB) | payer OTHER, SELFPAY ==
--- NOTE | 2025-03-16 16:12 | MHC.OFFVIS ---
Vital Signs 03/16/25 16:13 Height 5 ft 3 in Weight 216 lb 0.848 oz BMI 38.3 BP 136/88 Blood Pressure Location Rt brachial Position Sitting Pulse 83 Pulse Source Pulse Oximeter Pulse Oximetry (%) 99 Oxygen Delivery Method Room Air Intake Visit Reasons: Primary hyperparathyroidism Intake Note: NEW Patient presents today to establish care for Primary Hyperparathyroidism: Business Management Manager Required: No Accompanied by: Self / Same As Patient Allergies clindamycin (CLINDAMYCIN) Allergy (Intermediate, Verified 03/16/25 16:15) HIVES Clindamycin Allergy (Unknown, Uncoded 03/16/25 16:15) Hives HPI Comments Details: 35 years old with PMH HTN, Low iron, low Vit D, obesity and GERD, she is seen in our office for the evaluation of hyperparathyroidism. She had bariatric surgery 6 years ago. She regained some weight and is being seen at [facility] for weight loss. She will continue to care at [facility]. She was found to have elevated January 2025, incidental. Reports intermittent fatigue, no bone, no kidney stones, no abdominal pain or muscle weakness. No family history of parathyroid or calcium problems. No history of osteoporosis. She had a R ankle fracture 14 days ago. She had a missed step and feel on it No history of kidney disease, no known malignancies Calcium intake: no milk, does have yogurt 2-3x/wk, cheese 2x/wk. Eats leafy green veggies 4x/week. No calcium supplements Takes vitamin D 2000 IU since January 2025, she was not taking vitamin D before. Tobacco: no Alcohol: social Physical exam: General: Well appearing. NAD. Not Cushingoid or Acromegalic Neck/Thyroid: Thyroid not palpable, no nodules. CV: RRR, no murmur. No edema. Resp:Lungs clear to auscultation bilaterally Abdomen: Soft, nontender. nondistended Extremities/Neuro: No weakness or tremor of outstretched hands Labs [facility] Medical History (Updated 03/16/25 @ 17:26 by Ashley Garcia MD) GERD (gastroesophageal reflux disease) Hypertension Work-related stress Generalized anxiety disorder ADHD Severe obesity Surgical History Hx of gastric bypass Hx of tubal ligation Family History Maternal Aunt Breast cancer Family/Other Breast cancer Father Lung cancer HTN (hypertension) Maternal Grandfather Lung cancer Mother HTN (hypertension) Paternal Grandmother Diabetes Social History Household Members: Spouse and Children Housing: House Alcohol intake: current Alcohol intake frequency: holidays/special occasions only Patient Tobacco Use Status: Never used Tobacco e-Cigarette/Vaping Use: Never Used Current occupational status: employed 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 Sexual orientation: Straight/Heterosexual Gender identity: Female Physical Exam Vital Signs: Last Vital Signs Pulse 83 03/16/25 16:13 BP 136/88 03/16/25 16:13 Pulse Ox 99 03/16/25 16:13 Oxygen Delivery Method Room Air 03/16/25 16:13 BMI result Body Mass Index 38.3 Assessment & Plan Assessment & Plan (1) Secondary hyperparathyroidism: Code(s): N25.81 - Secondary hyperparathyroidism of renal origin Category: Medical Plan: 35 yo female with a history of bariatric surgery (sleeve gastrectomy), presenting with isolated elevation of parathyroid hormone in the setting of normal calcium and vitamin D insufficiency. Her presentation is most consistent with secondary hyperparathyroidism, likely due to vitamin D deficiency and/or inadequate calcium absorption following bariatric surgery. The physiology was discussed in detail: low calcium or vitamin D levels stimulate increased parathyroid hormone secretion as a compensatory mechanism to maintain calcium balance. Primary hyperparathyroidism is less likely given normal calcium, absence of kidney stones, and lack of bone pain or fractures. There are no signs of tertiary or malignant causes. The patient?s bariatric history further supports secondary hyperparathyroidism due to reduced intestinal calcium absorption and chronic mild vitamin D deficiency. The patient understands the mechanism and the benign nature of this current finding. The importance of adequate supplementation and follow-up labs was reviewed in detail. Plan Calcium citrate 500 mg PO twice daily (start now; advised to take with food). Continue Vitamin D3 2000 IU (50 mcg) daily. Increase dietary calcium sources (yogurt, cheese, fortified plant milks, leafy greens). Repeat in 3 months: Comprehensive metabolic panel (CMP) Intact PTH Vitamin D (25-OH) Calcium (total and ionized) Phosphorus If abnormalities persist after calcium intake improved and vit D normalizes, we will order 24-hour urinary calcium excretion test to complete work up. Plan 45 minutes spent reviewing previous records, labs, imaging, education and documenting in the chart Orders: Orders Phosphorus 3 Months E21.1 - Secondary hyperparathyroidism, not elsewhere classified Vitamin D 25-OH Total 3 Months E21.1 - Secondary hyperparathyroidism, not elsewhere classified Calcium, Ionized 3 Months E21.1 - Secondary hyperparathyroidism, not elsewhere classified Comprehensive Met. Panel 3 Months E21.1 - Secondary hyperparathyroidism, not elsewhere classified Alkaline Phosphatase Bone 3 Months E21.1 - Secondary hyperparathyroidism, not elsewhere classified Parathyroid Hormone Intact 3 Months E21.1 - Secondary hyperparathyroidism, not elsewhere classified Medications: New calcium citrate 500 mg (2 x 250 mg calcium) PO BID 60 tabs 5RF E05.80 - Other thyrotoxicosis without thyrotoxic crisis or storm Patient Instructions: Please have blood/urine work up done at [facility] on [address] [place] [address], [address], [address] [place] [address] Por favor, real?cese los an?lisis de jonnathan y/o orina en [facility], en cualquiera de las siguientes direcciones: [facility], [address], [address] [place] [address] Take calcium citrate 500 mg twice daily Continue vitamin D 2000 IU/50 mcg daily Have labs done in advance to next visit Coding Level of Care Code New Pt Level 4 (35309) Diagnoses Secondary hyperparathyroidism N25.81
[2025-03-16 16:13] VITALS: BP 136/88; PULSE 83; O2SAT 99; BMI 38.3
== END 2025-03-16 16:48 | disposition home or self-care (01) ==
LOC: HO.ENCR 16:07
PROVIDERS: PCP Physician Assistant; Visit Provider Student in an Organized Health Care Education/Training Program
DX: N25.81 Secondary hyperparathyroidism of renal origin (principal)
CPT/HCPCS: 99204

== ENCOUNTER 2025-03-22 08:56 | Outpatient (AMB) | payer OTHER, SELFPAY ==
--- OUTSIDE RECORDS SUMMARY | 2025-03-17 13:30 | XMS_ITS | Encounter Summary ---
Author Organization [facility] Address [address] [place] [address] Care Team Providers Care Title Agent Name Role Phone Mi Martins MD Primary Care Provider [phone] Reason for Referral * Imaging (Routine) - Pending Review Specialty Diagnoses / Procedures Referred By Marcos perez Referred To Contact Radiology Diagnoses Class 2 severe obesity due to excess calories with serious comorbidity and body mass index (BMI) of 37.0 to 37.9 in adult Weight gain following gastric bypass surgery Gastroesophageal reflux disease without esophagitis Status post sleeve gastrectomy Procedures XR UGI w Small Bowel Series Fahad Turner MD [address] [place] [address] Phone: tel: fax: [address] [address] Phone: tel: Referral ID Status Reason Start Date Expiration Date V isits Requested Visits Authorized [id number] Pending Review 03/18/2025 03/18/2026 1 1 Reason for Visit * Reason Comments Consult Weight Management New patient * Consultation (Routine) - Closed Specialty Diagnoses / Procedures Referred By Marcos perez Referred To Contact Bariatrics Diagnoses Morbid (severe) obesity due to excess calories (CMS/HCC V24, CMS/HCC V28) Mandie Glaser PA [address] [place] [address] Phone: tel: Bariatric Surgery - [place] [address] [facility] [address] [place] [address] Phone: tel: fax: Referral ID Status Reason Start Date Expiration Date V isits Requested Visits Authorized [id number] Closed Specialty Services Required 01/22/2025 01/22/2026 1 1 Encounter Details Date Type Department Care Team (Late st Contact Info) Description 03/17/2025 1:30 PM EST Office Visit Bariatric Surgery - [address] [place] [address] Fahad Turner MD [address] [place] [address] Class 2 severe obesity due to excess calories with serious comorbidity and body mass index (BMI) of 37.0 to 37.9 in adult (Primary Dx); S/P bariatric surgery; Gastroesophageal reflux disease without esophagitis; Status post sleeve gastrectomy; Dietary counseling; Exercise counseling; Abnormal weight gain Social History Tobacco Use Types Packs/Day Years Used Date Smoking Tobacco: Never Assessed Comments Unknown Sex and Gender Information Value Date Recorded Sex Assigned at Female 03/10/2025 10:25 AM EST Legal Sex Female 11:10 AM EDT Gender Identity Female 03/10/2025 10:25 AM EST Sexual Orientation Straight 03/10/2025 10 :25 AM EST documented as of this encounter Last Filed Vital Signs Vital Sign Reading Time Taken Comments Blood Pressure 168/99 03/17/2025 1:44 PM EST Pulse 92 03/17/2025 1:44 PM EST Temperature 36.6 C (97.8 F) 03/17/2025 1:44 PM EST Respiratory Rate - - Oxygen Saturation - - Inhaled Oxygen Concentration - - Weight 97.1 kg (214 lb) 03/17/2025 1:44 PM EST Height 160 cm (5' 3 ) 03/17/2025 1:44 PM EST Body Mass Index 37.91 03/17/2025 1:44 PM EST documented in this encounter Progress Notes * Fahad Turner MD - 03/17/2025 1:30 PM EST Bariatric Surgery Consultation Chief Complaint: GERD HPI: Raine Fernandez is a 35 y.o. year old female who presents to discuss surgical weight loss. She had sleeve gastrectomy 6 yrs ago. Her weigh prior to the surgery was about 230-240 lbs. Got down to 160 lbs and her lowest weight was 140 lbs. Slowly started regaining weight about a year later during COVID. Her weight went up to 241 lbs. She changed her diet and started exercising more. Was able to gether weight down to 178 lbs last May. She has severe GERD and bloating. She was prescribed PPI by her PCP but has had several episodes ofsevere regurgitation despite this. She feels heartburn and regurgitation up to her throat. She's also concerned about her blood pressure. Has not been to see her surgeon or motor brakeman since her surgery. Any limitations/disabilities precluding exercise: none Current exercise regimen: 30 min 3-4 days per week. 10-15 min on the treadmill and 10-15 dumb-bells. Reasons for interest in bariatric surgery: GERD and weight regain ROS: GENERAL: No malaise, significant unintentional weight loss, fever, chills or night sweats. RESPIRATORY: No cough, wheezing or shortness of breath. No dyspnea on exertion. CARDIOVASCULAR: No chest pain, leg swelling or palpitations. GI: No abdominal discomfort, nausea, vomiting, or change in bowel habits. +reflux/heartburn. : No dysuria, frequency or incontinence. SKIN: No lesions, rash or itching. HEMATOLOGY/LYMPHOLOGY No prolonged bleeding, easy bruisability or swollen nodes. The remainder of the review of systems is unremarkable PAST MEDICAL HISTORY: Problem List[1] PAST SURGICAL HISTORY: Surgical History[2] GYNECOLOGICAL HISTORY: OB History No obstetric history on file. SOCIAL HISTORY: Social History Tobacco Use Smoking status: Not on file Smokeless tobacco: Not on file Substance Use Topics Alcohol use: Not on file FAMILY HISTORY: Family History[3] No family status information on file. ACTIVE MEDICATIONS: Medications Taking[4] ALLERGIES: reviewed PHYSICAL EXAM: Visit Vitals BP (!) 168/99 Pulse 92 Temp 36.6 ??C (97.8 ??F) (Temporal) Ht 1.6 m (63 ) Wt 97.1 kg (214 lb) BMI 37.91 kg/m?? BSA 1.99 m?? APPEARANCE: Alert and in no acute distress EYES: Conjunctiva normal and sclera normal and anicteric. NECK: Neck supple with no adenopathy. HEART: RRR, no murmurs, no gallops. LUNG: Clear to auscultation, no crackles or wheezes LYMPH NODES: No lymphadenopathy. ABDOMEN: Obese, soft, non-tender, without organomegaly or palpable masses. No Hernia Appreciated. Well healed surgical scars in upper abdomen. EXTREMITIES: Extremities warm and well perfused without clubbing, cyanosis, or edema. SKIN: Skin color and texture normal. No rashes or lesions. NEUROLOGIC: alert and oriented LABS: 03/17/2025 Sodium 137 Potassium 3.9 Chloride 105 CO2 26 Anion Gap 6 Glucose 96 BUN 9 Creatinine 0.75 eGFR 106 Comment: Calculation based on the Chronic Kidney Disease Epidemiology Collaboration (CKD-EPI) equation refit without adjustment for race. BUN/Creatinine Ratio 12.0 Calcium 9.3 AST (SGOT) 11 ALT (SGPT) 23 Alkaline Phosphatase 74 Total Protein 7.8 Albumin 3.9 Total Bilirubin 0.4 WBC 9.5 RBC 4.90 High Hemoglobin 11.1 Low Hematocrit 39.0 MCV 80.2 MCH 22.8 Low MCHC 28.5 Low RDW 18.4 High Platelets 434 High MPV 9.1 NRBC 0.0 NRBC Absolute 0.00 Hemoglobin A1C 5.4 Mean Bld Glu Estim. 108 Vitamin B-12 1,251 High Folate 7.6 Iron 29 Low ASSESSMENT: This is 35 y.o. female with history of sleeve gastrectomy 2019 now with worsening GERD and weight regain who is interested in revision surgery, specifically the gastric bypass. We discussed obesity interventions including lifestyle modifications, weight loss medications, and surgery. We discussed eating a well balanced diet with focus on adequate protein of at least 0.8g/kg(78g/day in her case) and fiber of at least 20-30 g/day. I also explained the benefits of exercising of moderate intensity of at least half an hour to an hour a day, 4 to 5 days a week, the importance of self-monitoring by weighing weekly, and importance of practicing mindfulness when eating: what,how much, and why. Additionally, we discussed the importance avoiding snacking/grazing and seeing abariatric motor brakeman on regular basis given her history of bariatric surgery. I discussed with the patient the different procedures available after sleeve gastrectomy including the the gastric bypass, the single anastomosis duodenal ileal bypass with sleeve (ROSE-S), and biliopancreatic diversion with duodenal switch (BPD). Indications, benefits, risks and complications werediscussed. I also discussed with the patient the different medical options. I explained the mechanism of action, the potential adverse effects and the expected results. These included oral anti-obesity medications as well as injectable medication such as the different GLP-1 medications. In her casegiven that GERD is the more pronounced condition, I explained to her that often in these cases we revise a sleeve gastrectomy by converting to a Yahaira en-Y gastric bypass which not only address her GERD and can have additional benefits with treating her weight regain. The weight loss after this procedure may not be significant, however. Patient states she has been told this by another surgeon. However, at this time the GERD is causing significant decrease in her quality of life and would like toconsider revision surgery to treat this. The patient has decided that she will proceed with revision bariatric surgery. She will see a motor brakeman in our clinic to bebin the bariatric program. We will also schedule an UGI and EGD to assess her GERD as well as for hiatal hernia which can also be addressed at the time of surgery. All questions and concerns were addressed at this time. The patient seems to understand and agreed to the plan below. The patient was told that they will be required to see the regional sales coordinator and comply with the nutritional component of the program. They will attend two support groups, obtain a primary care provider clearance letter, and obtain psychiatric clearance. We discussed the lifelong requirement of nutritional supplementation and adherence to an exercise regimen, as well as the importance of follow-up. The patient expressed understanding and agreement. PLAN: -EGD with biopsy -UGI ordered -See Manager Internship and start bariatric program -f/u with me once the above are completed Medication and lab orders: Orders Placed This Encounter Procedures Comprehensive metabolic panel Complete blood count Hemoglobin A1c Vitamin B12 and folate Iron I spent a total of 70 minutes reviewing the patient's record, interviewing and examining the patient, developing a treatment plan and discussing care with the patient. Greater than 50% of the time was spent on counseling the patient. Fahad Turner MD [facility] General and Bariatric Surgery [facility] [1] Patient Active Problem List Diagnosis Status post sleeve gastrectomy Intestinal malabsorption following gastrectomy Gastroesophageal reflux disease without esophagitis [2] No past surgical history on file. [3] No family history on file. [4] No outpatient medications have been marked as taking for the 03/17/25 encounter (Office Visit) withFahad Turner MD. documented in this encounter Plan of Treatment Upcoming Encounters Date Type Department Care Team (Late st Contact Info) Description 03/24/2025 8:15 AM EST Appointment [facility] Xray [address] [place] [id number] 06/04/2025 11:00 AM EST Consult Bariatric Surgery - [place] [address] [address] Mi Juarez, RD [address] [address] Scheduled Orders Name Type Priority Associated Diagnoses Orde r Schedule XR UGI w Small Bowel Series Imaging Routine Class 2 severe obesity due to excess calories with serious comorbidity and body mass index (BMI) of 37.0 to 37.9 in adult Gastroesophageal reflux disease without esophagitis Status post sleeve gastrectomy Expected: 03/18/2025, Expires: 03/18/2026 Scheduled Procedures Name Priority Associated Diagnoses Date/Ti me EGD S/P laparoscopic sleeve gastrectomy Gastroesophageal reflux disease without esophagitis Abnormal weight gain documented as of this encounter Results * (ABNORMAL) Iron (03/17/2025 2:31 PM EST) Iron 29(L) 40 - 150 mcg/dL LAB CHEMISTRY METHOD 03/17/2025 6:27 PM EST [facility] Blood Venous blood specimen / Unknown Venipuncture / Unknown 03/17/2025 2:31 PM EST 03/17/2025 2:31 PM EST us Fahad Turner MD LAB BLOOD ORDERABLES Final Result [facility] [address] [place] [address], * (ABNORMAL) Vitamin B12 and folate (03/17/2025 2:31 PM EST) [facility] Vitamin B-12 1,251(H) 250 - 900 pcg/mL LAB CHEMISTRY METHOD 03/17/2025 6:57 PM EST [facility] Folate 7.6 2.8 - 17.0 ng/ml LAB CHEMISTRY METHOD 03/17/2025 6:57 PM EST [facility] Blood Venous blood specimen / Unknown Venipuncture / Unknown 03/17/2025 2:31 PM EST 03/17/2025 2:31 PM EST Fahad Turner MD LAB BLOOD ORDERABLES Final Result Performing Organization Address [facility]/ZIP Co de Phone Number [facility] [address] [place] [address], * Hemoglobin A1c (03/17/2025 2:31 PM EST) [facility] Hemoglobin A1C 5.4 <6.5 % LAB CHEMISTRY METHOD 03/17/2025 9:58 PM EST [facility] Mean Bld Glu Estim. 108 mg/dL LAB CHEMISTRY METHOD 03/17/2025 9:58 PM EST [facility] Blood Venous blood specimen / Unknown Venipuncture / Unknown 03/17/2025 2:31 PM EST 03/17/2025 2:31 PM EST Fahad Turner MD LAB BLOOD ORDERABLES Final Result [facility] [address] [place] [address], [place] [phone] * (ABNORMAL) Complete blood count (03/17/2025 2:31 PM EST) [facility] WBC 9.5 4.8 - 10.8 K/mcL LAB HEMETOLOGY METHOD 03/17/2025 8:19 PM [facility] RBC 4.90(H) 3.80 - 4.80 M/mcL LAB HEMETOLOGY METHOD 03/17/2025 8:19 PM [facility] Hemoglobin 11.1(L) 11.5 - 16.0 g/dL LAB HEMETOLOGY METHOD 03/17/2025 8:19 PM [facility] Hematocrit 39.0 35.0 - 47.0 % LAB HEMETOLOGY METHOD 03/17/2025 8:19 PM [facility] MCV 80.2 79.0 - 98.0 FL LAB HEMETOLOGY METHOD 03/17/2025 8:19 PM [facility] MCH 22.8(L) 27.0 - 32.0 pcg LAB HEMETOLOGY METHOD 03/17/2025 8:19 PM [facility] MCHC 28.5(L) 32.0 - 37.0 g/dL LAB HEMETOLOGY METHOD 03/17/2025 8:19 PM [facility] RDW 18.4(H) 11.0 - 15.0 % LAB HEMETOLOGY METHOD 03/17/2025 8:19 PM [facility] Platelets 434(H) 130 - 400 K/mcL LAB HEMETOLOGY METHOD 03/17/2025 8:19 PM [facility] MPV 9.1 7.0 - 11.0 FL LAB HEMETOLOGY METHOD 03/17/2025 8:19 PM [facility] NRBC 0.0 <1.0 % LAB HEMETOLOGY METHOD 03/17/2025 8:19 PM [facility] NRBC Absolute 0.00 <0.10 K/mcL LAB HEMETOLOGY METHOD 03/17/2025 8:19 PM [facility] Blood Venous blood specimen / Unknown Venipuncture / Unknown 03/17/2025 2:31 PM EST 03/17/2025 2:31 PM EST Fahad Turner MD LAB BLOOD ORDERABLES Final Result [facility] [address] [place] [address], [place] [phone] * Comprehensive metabolic panel (03/17/2025 2:31 PM EST) Sodium 137 133 - 145 mmol/L LAB CHEMISTRY METHOD 03/17/2025 6:27 PM [facility] Potassium 3.9 3.5 - 5.5 mmol/L LAB CHEMISTRY METHOD 03/17/2025 6:27 PM [facility] Chloride 105 96 - 110 mmol/L LAB CHEMISTRY METHOD 03/17/2025 6:27 PM [facility] CO2 26 21 - 32 mmol/L LAB CHEMISTRY METHOD 03/17/2025 6:27 PM [facility] Anion Gap 6 3 - 11 LAB CHEMISTRY METHOD 03/17/2025 6:27 PM [facility] Glucose 96 70 - 100 mg/dL LAB CHEMISTRY METHOD 03/17/2025 6:27 PM [facility] BUN 9 5 - 25 mg/dL LAB CHEMISTRY METHOD 03/17/2025 6:27 PM [facility] Creatinine 0.75 0.50 - 1.10 mg/dL LAB CHEMISTRY METHOD 03/17/2025 6:27 PM [facility] eGFR 106 >=60 mL/min/1. 73m2 LAB CHEMISTRY METHOD 03/17/2025 6:27 PM [facility] Comment:Calculation based on the Chronic Kidney Disease Epidemiology Collaboration (CKD-EPI) equation refit without adjustment for race. BUN/Creatinine Ratio 12.0 LAB CHEMISTRY METHOD 03/17/2025 6:27 PM [facility] Calcium 9.3 8.5 - 10.5 mg/dL LAB CHEMISTRY METHOD 03/17/2025 6:27 PM [facility] AST (SGOT) 11 10 - 42 unit/L LAB CHEMISTRY METHOD 03/17/2025 6:27 PM [facility] ALT (SGPT) 23 10 - 60 unit/L LAB CHEMISTRY METHOD 03/17/2025 6:27 PM [facility] Alkaline Phosphatase 74 42 - 121 unit/L LAB CHEMISTRY METHOD 03/17/2025 6:27 PM [facility] Total Protein 7.8 6.0 - 8.0 g/dL LAB CHEMISTRY METHOD 03/17/2025 6:27 PM [facility] Albumin 3.9 3.2 - 5.0 g/dL LAB CHEMISTRY METHOD 03/17/2025 6:27 PM [facility] Total Bilirubin 0.4 0.0 - 1.4 mg/dL LAB CHEMISTRY METHOD 03/17/2025 6:27 PM [facility] Blood Venous blood specimen / Unknown Venipuncture / Unknown 03/17/2025 2:31 PM EST 03/17/2025 2:31 PM EST us Fahad Turner MD LAB BLOOD ORDERABLES Final Result [facility] [address] [place] [address], documented in this encounter Visit Diagnoses Diagnosis Class 2 severe obesity due to excess calories with serious comorbidity and body mass index (BMI) of 37.0 to 37.9 in adult- Primary S/P bariatric surgery Gastroesophageal reflux disease without esophagitis Esophageal reflux Status post sleeve gastrectomy Dietary counseling Dietary surveillance and counseling Exercise counseling Abnormal weight gain documented in this encounter Orders Outpatient Referral Count Last Ordered Date Fir st Ordered Date AMB REFERRAL TO BARIATRIC SURGERY 1 025 documented in this encounter Care Teams Title Agent Relationship Specialty Start Date End Date Mi Martins MD [address] [place] [address] PCP - General Internal Medicine 01/22/25 documented as of this encounter
--- OUTSIDE RECORDS SUMMARY | 2025-03-17 14:35 | XMS_ITS | Encounter Summary ---
Author Organization [facility] Address [address] [place] [address] Care Team Providers Care Distance Learning Unit Leader Name Role Phone Mi Martins MD Primary Care Provider [phone] Encounter Details Date Type Department Care Team (Late Contact Info) Description 03/17/2025 2:35 PM EST Lab Draw Station - [address] [address] S/P bariatric surgery Social History Tobacco Use Types Packs/Day Years Used Date Smoking Tobacco: Never Assessed Comments Unknown Sex and Gender Information Value Date Recorded Sex Assigned at Female 03/10/2025 10:25 AM EST Legal Sex Female 11:10 AM EDT Gender Identity Female 03/10/2025 10:25 AM EST Sexual Orientation Straight 03/10/2025 10 :25 AM EST documented as of this encounter Plan of Treatment Upcoming Encounters Date Type Department Care Team (Late Contact Info) Description 03/24/2025 8:15 AM EST Appointment [facility] Xray [address] [place] [address] 06/04/2025 11:00 AM EST Consult Bariatric Surgery - [place] [address] [address] Mi Juarez, RD [address] [address] Scheduled Procedures Name Priority Associated Diagnoses Date/Ti me EGD S/P laparoscopic sleeve gastrectomy Gastroesophageal reflux disease without esophagitis Abnormal weight gain documented as of this encounter Procedures Procedure Name Priority Date/Time Associated Diagnosis Comments VITAMIN B12 AND FOLATE Routine 2:31 PM EST S/P bariatric surgery COMPLETE BLOOD COUNT Routine 03/17/2025 2:31 PM EST S/P bariatric surgery IRON Routine 03/17/2025 2:31 PM EST S/P bariatric surgery HEMOGLOBIN A1C Routine 03/17/2025 2:31 PM EST S/P bariatric surgery COMPREHENSIVE METABOLIC PANEL Routine 03/17/2025 2:31 PM EST S/P bariatric surgery documented in this encounter Results * Comprehensive metabolic panel (03/17/2025 2:31 PM EST) Sodium 137 133 - 145 mmol/L LAB CHEMISTRY METHOD 03/17/2025 6:27 PM [facility] Potassium 3.9 3.5 - 5.5 mmol/L LAB CHEMISTRY METHOD 03/17/2025 6:27 PM [facility] Chloride 105 96 - 110 mmol/L LAB CHEMISTRY METHOD 03/17/2025 6:27 PM [facility] CO2 26 21 - 32 mmol/L LAB CHEMISTRY METHOD 03/17/2025 6:27 PM [facility] Anion Gap 6 3 - 11 LAB CHEMISTRY METHOD 03/17/2025 6:27 PM [facility] Glucose 96 70 - 100 mg/dL LAB CHEMISTRY METHOD 03/17/2025 6:27 PM [facility] BUN 9 5 - 25 mg/dL LAB CHEMISTRY METHOD 03/17/2025 6:27 PM [facility] Creatinine 0.75 0.50 - 1.10 mg/dL LAB CHEMISTRY METHOD 03/17/2025 6:27 PM [facility] eGFR 106 >=60 mL/min/1. 73m2 LAB CHEMISTRY METHOD 03/17/2025 6:27 PM [facility] Comment:Calculation based on the Chronic Kidney Disease Epidemiology Collaboration (CKD-EPI) equation refit without adjustment for race. BUN/Creatinine Ratio 12.0 LAB CHEMISTRY METHOD 03/17/2025 6:27 PM [facility] Calcium 9.3 8.5 - 10.5 mg/dL LAB CHEMISTRY METHOD 03/17/2025 6:27 PM [facility] AST (SGOT) 11 10 - 42 unit/L LAB CHEMISTRY METHOD 03/17/2025 6:27 PM [facility] ALT (SGPT) 23 10 - 60 unit/L LAB CHEMISTRY METHOD 03/17/2025 6:27 PM [facility] Alkaline Phosphatase 74 42 - 121 unit/L LAB CHEMISTRY METHOD 03/17/2025 6:27 PM [facility] Total Protein 7.8 6.0 - 8.0 g/dL LAB CHEMISTRY METHOD 03/17/2025 6:27 PM [facility] Albumin 3.9 3.2 - 5.0 g/dL LAB CHEMISTRY METHOD 03/17/2025 6:27 PM [facility] Total Bilirubin 0.4 0.0 - 1.4 mg/dL LAB CHEMISTRY METHOD 03/17/2025 6:27 PM [facility] Blood Venous blood specimen / Unknown Venipuncture / Unknown 03/17/2025 2:31 PM EST 03/17/2025 2:31 PM EST us Fahad Turner MD LAB BLOOD ORDERABLES Final Result [facility] [address] [place] [address], * (ABNORMAL) Complete blood count (03/17/2025 2:31 PM EST) WBC 9.5 4.8 - 10.8 K/mcL LAB HEMETOLOGY METHOD 03/17/2025 8:19 PM [facility] RBC 4.90(H) 3.80 - 4.80 M/mcL LAB HEMETOLOGY METHOD 03/17/2025 8:19 PM [facility] Hemoglobin 11.1(L) 11.5 - 16.0 g/dL LAB HEMETOLOGY METHOD 03/17/2025 8:19 PM [facility] Hematocrit 39.0 35.0 - 47.0 % LAB HEMETOLOGY METHOD 03/17/2025 8:19 PM [facility] MCV 80.2 79.0 - 98.0 FL LAB HEMETOLOGY METHOD 03/17/2025 8:19 PM [facility] MCH 22.8(L) 27.0 - 32.0 pcg LAB HEMETOLOGY METHOD 03/17/2025 8:19 PM [facility] MCHC 28.5(L) 32.0 - 37.0 g/dL LAB HEMETOLOGY METHOD 03/17/2025 8:19 PM [facility] RDW 18.4(H) 11.0 - 15.0 % LAB HEMETOLOGY METHOD 03/17/2025 8:19 PM [facility] Platelets 434(H) 130 - 400 K/mcL LAB HEMETOLOGY METHOD 03/17/2025 8:19 PM [facility] MPV 9.1 7.0 - 11.0 FL LAB HEMETOLOGY METHOD 03/17/2025 8:19 PM [facility] NRBC 0.0 <1.0 % LAB HEMETOLOGY METHOD 03/17/2025 8:19 PM [facility] NRBC Absolute 0.00 <0.10 K/mcL LAB HEMETOLOGY METHOD 03/17/2025 8:19 PM [facility] Blood Venous blood specimen / Unknown Venipuncture / Unknown 03/17/2025 2:31 PM EST 03/17/2025 2:31 PM EST Fahad Turner MD LAB BLOOD ORDERABLES Final Result Performing Organization Address [facility]/State/ZIP Co de Phone Number [facility] [address] [place] [address], [place] [phone] * Hemoglobin A1c (03/17/2025 2:31 PM EST) [facility] Hemoglobin A1C 5.4 <6.5 % LAB CHEMISTRY METHOD 03/17/2025 9:58 PM EST [facility] Mean Bld Glu Estim. 108 mg/dL LAB CHEMISTRY METHOD 03/17/2025 9:58 PM EST [facility] Blood Venous blood specimen / Unknown Venipuncture / Unknown 03/17/2025 2:31 PM EST 03/17/2025 2:31 PM EST Fahad Turner MD LAB BLOOD ORDERABLES Final Result Performing Organization Address [facility]/ZIP Co de Phone Number [facility] [address] [place] [address], [place] [phone] * (ABNORMAL) Vitamin B12 and folate (03/17/2025 2:31 PM EST) [facility] Vitamin B-12 1,251(H) 250 - 900 pcg/mL LAB CHEMISTRY METHOD 03/17/2025 6:57 PM EST [facility] Folate 7.6 2.8 - 17.0 ng/ml LAB CHEMISTRY METHOD 03/17/2025 6:57 PM EST [facility] Blood Venous blood specimen / Unknown Venipuncture / Unknown 03/17/2025 2:31 PM EST 03/17/2025 2:31 PM EST Fahad Turner MD LAB BLOOD ORDERABLES Final Result [facility] [address] [place] [address], [place] [phone] * (ABNORMAL) Iron (03/17/2025 2:31 PM EST) Iron 29(L) 40 - 150 mcg/dL LAB CHEMISTRY METHOD 03/17/2025 6:27 PM EST [facility] Blood Venous blood specimen / Unknown Venipuncture / Unknown 03/17/2025 2:31 PM EST 03/17/2025 2:31 PM EST Fahad Turner MD LAB BLOOD ORDERABLES Final Result Performing Organization Address [facility]/ZIP Co de Phone Number [facility] [address] [place] [address], documented in this encounter Visit Diagnoses Diagnosis S/P bariatric surgery documented in this encounter Care Teams Distance Learning Unit Leader Relationship Specialty Start Date End Date Mi Martins MD [address] [place] [address] PCP - General Internal Medicine 01/22/25 documented as of this encounter
--- NOTE | 2025-03-22 08:58 | MHC.OFFVIS ---
Vital Signs 03/22/25 09:00 Height 5 ft 3 in Weight 216 lb BMI 38.3 BP 144/102 H Intake Visit Reasons: Discuss Treatment Intake Note: c/o of vaginal odor Gasket Inspector Required: No Information Interpreted: non-clinical & clinical Bss Solution Architect: Bss Solution Architect Present (Sandy Castañeda SUSSY) Accompanied by: Self / Same As Patient Allergies clindamycin (CLINDAMYCIN) Allergy (Intermediate, Verified 03/22/25 09:01) HIVES Clindamycin Allergy (Unknown, Uncoded 03/22/25 09:01) Hives Is last menstrual period known: Yes Last menstrual period: 03/16/25 HPI Comments Details: Presenting to discuss options of treatment for AUB complaining of vaginal discharge associated with PFSH Medical History GERD (gastroesophageal reflux disease) Hypertension Work-related stress Generalized anxiety disorder ADHD Severe obesity Surgical History Hx of gastric bypass Hx of tubal ligation Family History Maternal Aunt Breast cancer Family/Other Breast cancer Father Lung cancer HTN (hypertension) Maternal Grandfather Lung cancer Mother HTN (hypertension) Paternal Grandmother Diabetes Social History Household Members: Spouse and Children Housing: House Alcohol intake: current Alcohol intake frequency: holidays/special occasions only Patient Tobacco Use Status: Never used Tobacco e-Cigarette/Vaping Use: Never Used Current occupational status: employed 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 Sexual orientation: Straight/Heterosexual Gender identity: Female Female Reproductive History Menstrual Date of last menstrual period: 03/16/25 control method: permanent sterilization Review of Systems Const All systems reviewed & are unremarkable except as noted in HPI and below Physical Exam Vital Signs: Last Vital Signs BP 144/102 H 03/22/25 09:00 BMI result Body Mass Index 38.3 General: Yes no CVA tenderness External Female Exam: normal external appearance and normal appearance of the urethra Speculum Exam - Vagina: normal appearance of the vagina, normal palpation, no lesions and no masses Speculum Exam - Cervix: normal appearance of the cervix, normal palpation, no lesions, no masses and nontender Bimanual exam- vagina & uterus: normal bimanual exam, normal palpation, uterine size normal, normal palpation, uterine shape normal, No Cervical tenderness present and non-tender Bimanual Exam- Adnexa, other: normal adnexae Back/Spine/Pelvis Back: no CVA tenderness Assessment & Plan Assessment & Plan (1) Abnormal uterine bleeding (AUB): Code(s): N93.9 - Abnormal uterine and vaginal bleeding, unspecified Category: Medical Plan: Discussed with the patient the results of the work up done and options of treatment including Lysteda, control pills, Mirena IUD, endometrial ablation and hysterectomy. All pros, cons, risks and benefits if each option was discussed with the patient and the patient decided to go ahead with Mirena IUD so a more detailed discussion about it was conducted including mechanism of action, risks (uterine perforation, infection, injury to bladder, bowel, displacement, and others) benefits (hypo menorrhea, amenorrhea, ...). GC/CT were taken and the patient was instructed to schedule Mirena IUD insertion on day 1-5 of next cycle . All questions answered, the patient verbalized understanding (2) Bacterial vaginosis: Code(s): N76.0 - Acute vaginitis; B96.89 - Other specified bacterial agents as the cause of diseases classified elsewhere Category: Medical Plan: GC and chlamydia cultures with BV panel taken. Will treat with Flagyl 500 mg p.o. b.i.d. x 7 days, Instructions given to the patient to refrain from sexual activity or to use condoms consistently and correctly during the BV treatment regimen, not to douch, it might increase the risk for relapse, and to call if symptoms persist or recur. Coding Level of Care Code Est Pt Level 3 (97923) Diagnoses Abnormal uterine bleeding (AUB) N93.9 Bacterial vaginosis N76.0; B96.89
[2025-03-22 09:00] VITALS: BP 144/102; BMI 38.3
--- OUTSIDE RECORDS SUMMARY | 2025-03-22 14:01 | XMS_ITS | Encounter Summary ---
Author Organization [facility] Address [address] [place] [address] [place] [phone] Phone Care Team Providers Care Email Operations Manager Name Role Phone Gage Diallo MD Primary Care Provider Reason for Visit * Reason Onset Date Comments Appointment 12/25/2024 Encounter Details Date Type Department Care Team (Late st Contact Info) Description 12/25/2024 Telephone [employer] [facility] General Surgical Care [address] [place] [address] Marcella Simmons MD [address] [facility], [address]nd [place] [address] [email or web address] Appointment Social History Tobacco Use Types Packs/Day [...] appt with . Please advise. Central Support Art Psychotherapist Or Therapist (Please do not reply to this user; this inbox is not monitored.) Thank you. documented in this encounter Plan of Treatment Not on file documented as of this encounter Visit Diagnoses Not on filedocumented in this encounter Care Teams Email Operations Manager Relationship Specialty Start Date End Date Gage Diallo MD [address] [place] [address] [place] [address] PCP - General Internal Medicine 12/26/21 documented as of this encounter Additional Source Comments The information contained in this document represents components of the legal health record. It is not the complete legal health record.[facility]
--- OUTSIDE RECORDS SUMMARY | 2025-03-22 14:03 | XMS_ITS | Clinical Summary ---
Author Organization [facility] Address [address] [place] [phone] Phone Care Team Providers Care Cutter Banana Room Name Role Phone Gage Diallo MD Primary [...] her notes for prior authorization to use [employer] in about 3 to 4 months if [...] include 2 protein meal replacements such as Haitian yogurt, cottage cheese, protein shake, or protein bar at 9 AM and 3 PM daily. At 12 PM and 6 PM daily the patient will consume 3 to 4 ounces of protein with 4 ounces of vegetables or small salad with not more than 2 tablespoons of a Welsh or vinaigrette dressing. At the 6 PM [...] 01/19/2025 11:59 PM EDT Hospital Encounter [facility] [address] [place] [address] Marcella Simmons MD Discharge Disposition: Home or Self Care 01/19/2025 10:30 AM EDT Office Visit [facility] General Surgical Care [address] [place] [address] [place] [address] Marcella Simmons MD Intestinal malabsorption following gastrectomy (Primary Dx); Class 2 severe obesity due to excess calories with serious comorbidity and body mass index (BMI) of 36.0 to 36.9 in adult; Gastroesophageal reflux disease without esophagitis; Status post laparoscopic sleeve gastrectomy; Bariatric surgery status 12/25/2024 Telephone [facility] General Surgical Care [address] [place] [address] [place] [address] Marcella Simmons MD Appointment from Last 3 [...] patient's age to complete this topic IPV VACCINES Aged Out No longer eligi ble [...] Intestinal malabsorption following gastrectomy COMPREHENSIVE METABOLIC PANEL (CMP) Routine 01/19/2025 11:36 AM EDT Intestinal malabsorption following gastrectomy C-REACTIVE PROTEIN (CRP) Routine 01/19/2025 11:36 AM EDT Intestinal malabsorption [...] 11:36 AM EDT Intestinal malabsorption following gastrectomy THYROID STIMULATING HORMONE (TSH) Routine 01/19/2025 11:36 AM EDT Intestinal malabsorption [...] Zinc, S 78 60 - 106 mcg/dL [facility] Comment: (NOTE) ADDITIONAL INFORMATION This test was developed and its performance characteristics determined by [facility] in a manner consistent with CLIA requirements. This test has not been cleared or approved by the U.S. Food and Drug Administration. Blood 01/19/2025 11:3 6 AM EDT 01/19/2025 11:50 AM EDT us Marcella Simmons MD LAB BLOOD ORDERABLES Final Result [facility] [address] [place] [address] * (ABNORMAL) Comprehensive metabolic panel (01/19/2025 11:36 AM EDT) SODIUM 136 133 - 146 mmol/L [facility] POTASSIUM 4.1 3.3 - 5.1 mmol/L [facility] CHLORIDE 103 96 - 108 mmol/L [facility] CO2 21 21 - 35 mmol/L [facility] BUN 10 6 - 19 mg/dL [facility] CREATININE 0.60 0.5 - 1.5 mg/dL [facility] GLUCOSE 96 70 - 99 mg/dL [facility] ALBUMIN 4.6 3.9 - 4.8 g/dL [facility] TOTAL PROTEIN 8.1(H) 6.5 - 8.0 g/dL [facility] CALCIUM 8.8 8.4 - 10.3 mg/dL [facility] ALKALINE PHOSPHATASE 70 39 - 117 U/L [facility] TOTAL BILIRUBIN 0.4 0.0 - 1.2 mg/dL [facility] AST 18 0 - 37 U/L [facility] ALT <5 0 - 40 U/L [facility] GLOBULIN 3.5 1 - 4.8 g/dL [facility] EGFR 120 >59 mL/min/1.7 3m2 [facility] Comment:Estimated glomerular filtration rate calculated using the CKD-EPI refit equation. ANION GAP 16 10 - 20 mmol/L [facility] Blood 01/19/2025 11:3 6 AM EDT 01/19/2025 11:50 AM EDT us Marcella Simmons MD LAB BLOOD BKR ORDERABLES F inal Result Performing Organization Address City/[facility]/ZIP Co de Phone Number [address] [address] * (ABNORMAL) Iron and iron binding capacity (01/19/2025 11:36 AM EDT) IRON 35 30 - 160 ug/dL [facility] IRON BINDING CAPACITY 429(H) 228 - 428 ug/dL [facility] TRANSFERRIN SATURAT. 8(L) 15 - 50 % [facility] Blood 01/19/2025 11:3 6 AM EDT 01/19/2025 11:50 AM EDT us Marcella Simmons MD LAB BLOOD BKR ORDERABLES F inal Result [address] [address] * Vitamin A (01/19/2025 11:36 AM EDT) VITAMIN A 36.4 32.5 - 78.0 mcg/dL [facility] Comment: (NOTE) ADDITIONAL INFORMATION This test was developed and its performance characteristics determined by [facility] in a manner consistent with CLIA requirements. This test has not been cleared or approved by the U.S. Food and Drug Administration. Blood 01/19/2025 11:3 6 AM EDT 01/19/2025 11:50 AM EDT Marcella Simmons MD LAB BLOOD ORDERABLES Final Result Performing Organization Address [facility] de Phone Number [facility] [address] [place] [address] * (ABNORMAL) 25-OH vitamin D (01/19/2025 11:36 AM EDT) [facility] 25 [place] VIT D (TOTAL) 28(L) 30 - 60 ng/mL [facility] Blood 01/19/2025 11:3 6 AM EDT 01/19/2025 11:50 AM EDT us Marcella Simmons MD LAB BLOOD BKR ORDERABLES F inal Result Performing Organization Address City/[facility] Co de Phone Number [address] [address] * Insulin Level (01/19/2025 11:36 AM EDT) Pathologist [facility] INSULIN 16.6 2.6 - 25.0 uIU/mL [facility] Blood 01/19/2025 11:3 6 AM EDT 01/19/2025 11:50 AM EDT Marcella Simmons MD LAB BLOOD BKR ORDERABLES F inal Result [address] [address] * (ABNORMAL) CBC (01/19/2025 11:36 AM EDT) WBC 8.43 4.00 - 11.00 K/uL [facility] RBC 4.67 4.00 - 5.20 M/uL [facility] HGB 10.1(L) 12.0 - 16.0 g/dL [facility] HCT 35.3(L) 36.0 - 46.0 % [facility] PLT 389 150 - 450 K/uL [facility] MCV 75.6(L) 80.0 - 100.0 fL [facility] MCH 21.6(L) 27.0 - 31.0 pg [facility] MCHC 28.6(L) 32.0 - 36.0 g/dL [facility] RDW 15.0(H) 11.5 - 14.5 % [facility] MPV 9.9 8.4 - 12.0 fL [facility] NRBC 0.00 0.00 /100 WBCs [facility] ABSOLUTE NRBC 0.00 0.00 K/uL [facility] Blood 01/19/2025 11:3 6 AM EDT 01/19/2025 11:50 AM EDT us Marcella Simmons MD LAB BLOOD BKR ORDERABLES F inal Result [facility] [address] [place], [place] [id number] * C-Reactive Protein (01/19/2025 11:36 AM EDT) C REACTIVE PROTEIN <3.0 0.0 - 4.0 mg/L [facility] Blood 01/19/2025 11:3 6 AM EDT 01/19/2025 11:50 AM EDT Marcella Simmons MD LAB BLOOD BKR ORDERABLES F inal Result [address] [address] * TSH (01/19/2025 11:36 AM EDT) TSH 1.79 0.27 - 4.20 uIU/mL [facility] Blood 01/19/2025 11:3 6 AM EDT 01/19/2025 11:50 AM EDT Marcella Simmons MD LAB BLOOD BKR ORDERABLES F inal Result Performing Organization Address [facility] Co de Phone Number [address] [address] * Vitamin B1 (thiamine) (01/19/2025 11:36 AM EDT) Pathologist [facility] VITAMIN B1 88 70 - 180 nmol/L [facility] Comment: (NOTE) ADDITIONAL INFORMATION This test was developed and its performance characteristics determined by [facility] in a manner consistent with CLIA requirements. This test has not been cleared or approved by the U.S. Food and Drug Administration. Blood 01/19/2025 11:3 6 AM EDT 01/19/2025 11:50 AM EDT us Marcella Simmons MD LAB BLOOD ORDERABLES Final Result Performing Organization Address [facility]/ZIP Co de Phone Number [facility] [address] [place] [address] * (ABNORMAL) Parathyroid hormone (PTH) (01/19/2025 11:36 AM EDT) PARATHYROID HORMONE 133(H) 15 - 65 pg/mL [facility] Blood 01/19/2025 11:3 6 AM EDT 01/19/2025 11:50 AM EDT us Marcella Simmons MD LAB BLOOD BKR ORDERABLES F inal Result Performing Organization Address [facility]/ZIP Co de Phone Number [address] [address] * Hemoglobin A1c (01/19/2025 11:36 AM EDT) HEMOGLOBIN A1C 5.5 4.3 - 5.8 % [facility] Blood 01/19/2025 11:3 6 AM EDT 01/19/2025 11:50 AM EDT us Marcella Simmons MD LAB BLOOD BKR ORDERABLES F inal Result Performing Organization Address [facility] Co de Phone Number [address] [address] * Vitamin B12 (01/19/2025 11:36 AM EDT) VITAMIN B12 1,114 232 - 1,245 pg/mL [facility] Blood 01/19/2025 11:3 6 AM EDT 01/19/2025 11:50 AM EDT us Marcella Simmons MD LAB BLOOD BKR ORDERABLES F inal Result Performing Organization Address [facility] Co de Phone Number [address] [address] * (ABNORMAL) Lipid panel (01/19/2025 11:36 AM EDT) HDL 48 mg/dL [facility] Comment: Interpretation <40 mg/dL: Low HDL cholesterol (major risk factor for CHD) Greater than or equal to 60 mg/dL: High HDL cholesterol ( negative risk factor for CHD) HDL - cholesterol is affected by a number of factors, e.g. smoking, excerise, hormones, sex and age. CHOLESTEROL 149 0 - 240 mg/dL [facility] TRIGLYCERIDES 103 30 - 160 mg/dL [facility] LDL 80 50 - 129 mg/dL [facility] Comment: LDL levels in terms of risk for coronary heart disease: <100 mg/dL: Optimal 100-129 mg/dL: Near or above optimal 130-159 mg/dL: Borderline high 160-189 mg/dL: High >190 mg/dL: Very High CARDIAC RISK RATIO 3.1(L) 3.3 - 4.4 [facility] Blood 01/19/2025 11:3 6 AM EDT 01/19/2025 11:50 AM EDT us Marcella Simmons MD LAB BLOOD BKR ORDERABLES F inal Result [facility] [address] [place] [address] from Last [address] [facility] [place] [facility] [facility] [place] [facility] [place] [facility] [place] [facility] Care Teams Cutter Banana Room Relationship Specialty Start Date End Date Gage Diallo MD [address] [place] [address] [place] [address] PCP - General Internal Medicine 12/26/21 Additional Source Comments The information contained in this document represents components of the legal health record. It is not the complete legal health record.[facility]
--- OUTSIDE RECORDS SUMMARY | 2025-03-22 14:04 | XMS_ITS | Clinical Summary ---
Author Organization [facility] Address [address] [place] [address] Phone Care Team Providers Care Guillotine Trimmer Name Role Phone Mi Martins MD Primary Care Provider [phone] Allergies Active Allergy Reactions Criticality Noted Date Comments Clindamycin Hcl Hives 01/15/2022 Medications No known medications Active Problems Problem Noted Date Diagnosed Date Class 2 severe obesity due t o excess calories with serious comorbidity and body mass index (BMI) of 37.0 to 37.9 in adult 03/18/2025 S/P bariatric surgery 03/18/2025 Abnormal weight gain 03/18/2025 S/P laparoscopic sleeve gastrectomy 03/18/2025 Status post sleeve gastrectomy 03/12/2022 Gastroesophageal reflux disease without esophagi tis 02/12/2022 Intestinal malabsorption following gastrectomy 0 01/15/2022 Encounters Date Type Department Care Team Description 03/17/2025 2:35 PM EST Lab Draw Station - [address] [facility] [address] [place] [address] S/P bariatric surgery 03/17/2025 1:30 PM EST Office Visit Bariatric Surgery - [place] [address] [place] [address] Fahad Turner MD Class 2 severe obesity due to excess calories with serious comorbidity and body mass index (BMI) of 37.0 to 37.9 in adult (Primary Dx); S/P bariatric surgery; Gastroesophageal reflux disease without esophagitis; Status post sleeve gastrectomy; Dietary counseling; Exercise counseling; Abnormal weight gain from Last 3 Months Social History Tobacco Use Types Packs/Day Years Used Date Smoking Tobacco: Never Assessed Comments Unknown Sex and Gender Information Value Date Recorded Sex Assigned at Female 03/10/2025 10:25 AM EST Legal Sex Female 11:10 AM EDT Gender Identity Female 03/10/2025 10:25 AM EST Sexual Orientation Straight 03/10/2025 10 :25 AM EST Last Filed Vital Signs Vital Sign Reading [...] Mass Index 37.91 03/17/2025 1:44 PM EST Plan of Treatment Upcoming Encounters Date Type Department Care Team (Late st Contact Info) Description 03/24/2025 8:[address] [facility] Xray [address] [place] [phone] 06/04/2025 11:00 AM EST Consult Bariatric Surgery - [place] [address] [facility] [address] [place] [phone] Mi Juarez, RD [address] [address] Scheduled Procedures Name Priority Associated Diagnoses Date/Ti me EGD S/P laparoscopic sleeve gastrectomy Gastroesophageal reflux disease without esophagitis Abnormal weight gain Health Maintenance Due Date Last Done Comments DTaP,Tdap,and Td Vaccines (1 - Tdap) 02/17/2008 Hepatitis B Vaccines (1 of 3 - 19+ 3-dose series) 02/17/2008 Cervical Cancer Screening: P ap Smear 2010 HPV Vaccines (1 - 3-dose SCD M series) 02/17/2016 Depression Screening 05/06/2024 COVID-19 Vaccine (3 - 2024-2 6 season) 2025 11/07/2020, 10/10/2020 Influenza Vaccine (#1) 2025 04/28/2019 HIV Screening 01/22/2025 Hepatitis C Screening 01/22/2025 Social Influencers of Health Screening 01/22/2025 Cholesterol Screening (Lipid Panel) 01/19/2030 01/19/2025 RSV Immunization Adult Patients (1 - 1-dose 75+ series) 02/17/2064 HIB [...] age to complete this topic Pneumococcal Vaccine: Pediatrics (0 to 5 Years) and At-Risk Patients (6 to 49 Years) Aged Out No longer eligible b ased on patient's age to complete this topic RSV Immunization Patients Under 20 months Aged Out No longer eligible b ased on patient's age to complete this topic Varicella Vaccines Aged Out No longer eligible based on patient's age to complete this topic Goals Goal Patient Goal Type Associated Problems Recent Progress Patient-Stated? Author Autogenerat ed Goal Care Plan Autogenerated Problem No Fahad Turner MD Procedures Procedure Name Priority Date/Time Associated Diagnosis Comments COMPREHENSIVE METABOLIC PANEL Routine 03/17/2025 2:31 PM EST S/P bariatric surgery COMPLETE BLOOD COUNT Routine 03/17/2025 2:31 PM EST S/P bariatric surgery HEMOGLOBIN A1C Routine 03/17/2025 2:31 PM EST S/P bariatric surgery VITAMIN B12 AND FOLATE Routine 2:31 PM EST S/P bariatric surgery IRON Routine 03/17/2025 2:31 PM EST S/P bariatric surgery from Last 3 Months Results * (ABNORMAL) Vitamin B12 and folate (03/17/2025 2:31 PM EST) [facility] Vitamin B-12 1,251(H) 250 - 900 pcg/mL LAB CHEMISTRY METHOD 03/17/2025 6:57 PM EST [facility] Folate 7.6 2.8 - 17.0 ng/ml LAB CHEMISTRY METHOD 03/17/2025 6:57 PM EST [facility] Blood Venous blood specimen / Unknown Venipuncture / Unknown 03/17/2025 2:31 PM EST 03/17/2025 2:31 PM EST us Fahad Turner MD LAB BLOOD ORDERABLES Final Result [facility] [address] [place] [address], [place] [phone] * (ABNORMAL) Complete blood count (03/17/2025 2:31 PM EST) [facility] WBC 9.5 4.8 - 10.8 K/mcL LAB HEMETOLOGY METHOD 03/17/2025 8:19 PM [facility] RBC 4.90(H) 3.80 - 4.80 M/mcL LAB HEMETOLOGY METHOD 03/17/2025 8:19 PM [facility] Hemoglobin 11.1(L) 11.5 - 16.0 g/dL LAB HEMETOLOGY METHOD 03/17/2025 8:19 PM [facility] Hematocrit 39.0 35.0 - 47.0 % LAB HEMETOLOGY METHOD 03/17/2025 8:19 PM [facility] MCV 80.2 79.0 - 98.0 FL LAB HEMETOLOGY METHOD 03/17/2025 8:19 PM [facility] MCH 22.8(L) 27.0 - 32.0 pcg LAB HEMETOLOGY METHOD 03/17/2025 8:19 PM [facility] MCHC 28.5(L) 32.0 - 37.0 g/dL LAB HEMETOLOGY METHOD 03/17/2025 8:19 PM EST [facility] RDW 18.4(H) 11.0 - 15.0 % LAB HEMETOLOGY METHOD 03/17/2025 8:19 PM [facility] Platelets 434(H) 130 - 400 K/mcL LAB HEMETOLOGY METHOD 03/17/2025 8:19 PM EST [facility] MPV 9.1 7.0 - 11.0 FL LAB HEMETOLOGY METHOD 03/17/2025 8:19 PM EST [facility] NRBC 0.0 <1.0 % LAB HEMETOLOGY METHOD 03/17/2025 8:19 PM [facility] NRBC Absolute 0.00 <0.10 K/mcL LAB HEMETOLOGY METHOD 03/17/2025 8:19 PM EST [facility] Blood Venous blood specimen / Unknown Venipuncture / Unknown 03/17/2025 2:31 PM EST 03/17/2025 2:31 PM EST Fahad Turner MD LAB BLOOD ORDERABLES Final Result Performing Organization Address [facility] Co de Phone Number [facility] [address] [place] [address], * (ABNORMAL) Iron (03/17/2025 2:31 PM EST) Iron 29(L) 40 - 150 mcg/dL LAB CHEMISTRY METHOD 03/17/2025 6:27 PM EST [facility] Blood Venous blood specimen / Unknown Venipuncture / Unknown 03/17/2025 2:31 PM EST 03/17/2025 2:31 PM EST Fahad Turner MD LAB BLOOD ORDERABLES Final Result [facility] [address] [place] [address], [place] [phone] * Hemoglobin A1c (03/17/2025 2:31 PM EST) [facility] Hemoglobin A1C 5.4 <6.5 % LAB CHEMISTRY METHOD 03/17/2025 9:58 PM EST [facility] Mean Bld Glu Estim. 108 mg/dL LAB CHEMISTRY METHOD 03/17/2025 9:58 PM [facility] Blood Venous blood specimen / Unknown Venipuncture / Unknown 03/17/2025 2:31 PM EST 03/17/2025 2:31 PM EST Fahad Turner MD LAB BLOOD ORDERABLES Final Result Performing Organization Address [facility]/ZIP Co de Phone Number [facility] [address] [place] [address], [place] [phone] * Comprehensive metabolic panel (03/17/2025 2:31 PM EST) [facility] Sodium 137 133 - 145 mmol/L LAB CHEMISTRY METHOD 03/17/2025 6:27 PM [facility] Potassium 3.9 3.5 - 5.5 mmol/L LAB CHEMISTRY METHOD 03/17/2025 6:27 PM [facility] Chloride 105 96 - 110 mmol/L LAB CHEMISTRY METHOD 03/17/2025 6:27 PM [facility] CO2 26 21 - 32 mmol/L LAB CHEMISTRY METHOD 03/17/2025 6:27 PM [facility] Anion Gap 6 3 - 11 LAB CHEMISTRY METHOD 03/17/2025 6:27 PM [facility] Glucose 96 70 - 100 mg/dL LAB CHEMISTRY METHOD 03/17/2025 6:27 PM [facility] BUN 9 5 - 25 mg/dL LAB CHEMISTRY METHOD 03/17/2025 6:27 PM [facility] Creatinine 0.75 0.50 - 1.10 mg/dL LAB CHEMISTRY METHOD 03/17/2025 6:27 PM [facility] eGFR 106 >=60 mL/min/1. 73m2 LAB CHEMISTRY METHOD 03/17/2025 6:27 PM [facility] Comment:Calculation based on the Chronic Kidney Disease Epidemiology Collaboration (CKD-EPI) equation refit without adjustment for race. BUN/Creatinine Ratio 12.0 LAB CHEMISTRY METHOD 03/17/2025 6:27 PM [facility] Calcium 9.3 8.5 - 10.5 mg/dL LAB CHEMISTRY METHOD 03/17/2025 6:27 PM [facility] AST (SGOT) 11 10 - 42 unit/L LAB CHEMISTRY METHOD 03/17/2025 6:27 PM [facility] ALT (SGPT) 23 10 - 60 unit/L LAB CHEMISTRY METHOD 03/17/2025 6:27 PM [facility] Alkaline Phosphatase 74 42 - 121 unit/L LAB CHEMISTRY METHOD 03/17/2025 6:27 PM [facility] Total Protein 7.8 6.0 - 8.0 g/dL LAB CHEMISTRY METHOD 03/17/2025 6:27 PM [facility] Albumin 3.9 3.2 - 5.0 g/dL LAB CHEMISTRY METHOD 03/17/2025 6:27 PM [facility] Total Bilirubin 0.4 0.0 - 1.4 mg/dL LAB CHEMISTRY METHOD 03/17/2025 6:27 PM [facility] Blood Venous blood specimen / Unknown Venipuncture / Unknown 03/17/2025 2:31 PM EST 03/17/2025 2:31 PM EST us Fahad Turner MD LAB BLOOD ORDERABLES Final Result [facility] [address] [place] [address], from Last 3 Months Additional Health Concerns Active Problems Noted Date Diagnosed Date Autogenerated Problem 03/18/2025 Insurance [facility] [employer] Care Teams Guillotine Trimmer Relationship Specialty Start Date End Date Mi Martins MD [address] [place] [phone] PCP - General Internal Medicine 01/22/25
== END 2025-03-22 09:33 | disposition home or self-care (01) ==
LOC: HO.HWS 08:57
PROVIDERS: PCP Physician Assistant; Visit Provider Obstetrics & Gynecology
DX: N93.9 Abnormal uterine and vaginal bleeding, unspecified (principal); N76.0 Acute vaginitis; B96.89 Other specified bacterial agents as the cause of diseases classified elsewhere
CPT/HCPCS: 99213

== ENCOUNTER 2025-03-22 08:56 | Outpatient (REF) | payer OTHER, SELFPAY ==
[2025-03-22 16:31] LABS: Bacterial Vaginosis PCR NEGATIVE (Negative); Candida Group PCR DETECTED (Not Detect); Candida glab krusei PCR NOT DETECTED (Not Detect); Trichomonas vaginalis PCR NOT DETECTED (Not Detect)
[2025-03-22 17:03] LABS: CT PCR NOT DETECTED (Not Detect.); NG PCR NOT DETECTED (Not Detect.)
== END 2025-03-22 08:57 | disposition home or self-care (01) ==
LOC: HO.LNP 08:56
PROVIDERS: PCP Physician Assistant; Visit Provider Obstetrics & Gynecology
DX: B96.89 Other specified bacterial agents as the cause of diseases classified elsewhere (principal); N93.9 Abnormal uterine and vaginal bleeding, unspecified; N76.0 Acute vaginitis
CPT/HCPCS: 81515; 87491; 87591; 99212

== ENCOUNTER 2025-04-19 07:20 | Outpatient (AMB) | payer OTHER, SELFPAY ==
--- OUTSIDE RECORDS SUMMARY | 2025-04-19 07:22 | XMS_ITS | Clinical Summary ---
Author Organization [facility] Address [address] [place] [address] Phone Care Team Providers Care Motor Route Carrier Name Role Phone Gage Diallo MD Primary [...] her notes for prior authorization to use [employer] in about 3 to 4 months if [...] include 2 protein meal replacements such as Swazi yogurt, cottage cheese, protein shake, or protein bar at 9 AM and 3 PM daily. At 12 PM and 6 PM daily the patient will consume 3 to 4 ounces of protein with 4 ounces of vegetables or small salad with not more than 2 tablespoons of a Icelandic or vinaigrette dressing. At the 6 PM [...] 11:59 PM EDT Hospital Encounter [facility] [address] [place] [address] Marcella Simmons MD Discharge Disposition: Home or Self Care 01/19/2025 10:30 AM EDT Office Visit [facility] [address] [place] [address] Marcella Simmons MD Intestinal malabsorption following gastrectomy (Primary Dx); Class 2 severe obesity due to excess calories with serious comorbidity and body mass index (BMI) of 36.0 to 36.9 in adult; Gastroesophageal reflux disease without esophagitis; Status post laparoscopic sleeve gastrectomy; Bariatric surgery status from Last 3 Months Family History Medical [...] 2010 INFLUENZA VACCINE (#1) 2024 COVID-19 VACCINE (1 - 2024-2 6 season) 2025 CREATININE LEVEL [...] Zinc, S 78 60 - 106 mcg/dL [facility] Comment: (NOTE) ADDITIONAL INFORMATION This test was developed and its performance characteristics determined by [facility] in a manner consistent with CLIA requirements. This test has not been cleared or approved by the U.S. Food and Drug Administration. Blood 01/19/2025 11:3 6 AM EDT 01/19/2025 11:50 AM EDT us Marcella Simmons MD LAB BLOOD ORDERABLES Final Result [facility] [address] [place] [address] * (ABNORMAL) Comprehensive metabolic panel (01/19/2025 11:36 AM EDT) SODIUM 136 133 - 146 mmol/L [facility] POTASSIUM 4.1 3.3 - 5.1 mmol/L [facility] CHLORIDE 103 96 - 108 mmol/L [facility] CO2 21 21 - 35 mmol/L [facility] BUN 10 6 - 19 mg/dL [facility] CREATININE 0.60 0.5 - 1.5 mg/dL [facility] GLUCOSE 96 70 - 99 mg/dL [facility] ALBUMIN 4.6 3.9 - 4.8 g/dL [facility] TOTAL PROTEIN 8.1(H) 6.5 - 8.0 g/dL [facility] CALCIUM 8.8 8.4 - 10.3 mg/dL [facility] ALKALINE PHOSPHATASE 70 39 - 117 U/L [facility] TOTAL BILIRUBIN 0.4 0.0 - 1.2 mg/dL [facility] AST 18 0 - 37 U/L [facility] ALT <5 0 - 40 U/L [facility] GLOBULIN 3.5 1 - 4.8 g/dL [facility] EGFR 120 >59 mL/min/1.7 3m2 [facility] Comment:Estimated glomerular filtration rate calculated using the CKD-EPI refit equation. ANION GAP 16 10 - 20 mmol/L [facility] Blood 01/19/2025 11:3 6 AM EDT 01/19/2025 11:50 AM EDT us Marcella Simmons MD LAB BLOOD BKR ORDERABLES F inal Result Performing Organization Address City/[facility]/ZIP Co de Phone Number [address] [address] * (ABNORMAL) Iron and iron binding capacity (01/19/2025 11:36 AM EDT) IRON 35 30 - 160 ug/dL [facility] IRON BINDING CAPACITY 429(H) 228 - 428 ug/dL [facility] TRANSFERRIN SATURAT. 8(L) 15 - 50 % [facility] Blood 01/19/2025 11:3 6 AM EDT 01/19/2025 11:50 AM EDT us Marcella Simmons MD LAB BLOOD BKR ORDERABLES F inal Result Performing Organization Address City/[facility]/ZIP Co de Phone Number [address] [address] * Vitamin A (01/19/2025 11:36 AM EDT) VITAMIN A 36.4 32.5 - 78.0 mcg/dL [facility] Comment: (NOTE) ADDITIONAL INFORMATION This test was developed and its performance characteristics determined by [facility] in a manner consistent with CLIA requirements. This test has not been cleared or approved by the U.S. Food and Drug Administration. Blood 01/19/2025 11:3 6 AM EDT 01/19/2025 11:50 AM EDT us Marcella Simmons MD LAB BLOOD ORDERABLES Final Result Performing Organization Address City/[facility]/ZIP Co de Phone Number [facility] [address] [place] [address] * (ABNORMAL) 25-OH vitamin D (01/19/2025 11:36 AM EDT) 25 OH VIT D (TOTAL) 28(L) 30 - 60 ng/mL [facility] Blood 01/19/2025 11:3 6 AM EDT 01/19/2025 11:50 AM EDT us Marcella Simmons MD LAB BLOOD BKR ORDERABLES F inal Result Performing Organization Address [facility] Co de Phone Number [facility] [address] [place] [address] * Insulin Level (01/19/2025 11:36 AM EDT) INSULIN 16.6 2.6 - 25.0 uIU/mL [facility] Blood 01/19/2025 11:3 6 AM EDT 01/19/2025 11:50 AM EDT us Marcella Simmons MD LAB BLOOD BKR ORDERABLES F inal Result Performing Organization Address [facility]/ZIP Co de Phone Number [address] [address] * (ABNORMAL) CBC (01/19/2025 11:36 AM EDT) WBC 8.43 4.00 - 11.00 K/uL [facility] RBC 4.67 4.00 - 5.20 M/uL [facility] HGB 10.1(L) 12.0 - 16.0 g/dL [facility] HCT 35.3(L) 36.0 - 46.0 % [facility] PLT 389 150 - 450 K/uL [facility] MCV 75.6(L) 80.0 - 100.0 fL [facility] MCH 21.6(L) 27.0 - 31.0 pg [facility] MCHC 28.6(L) 32.0 - 36.0 g/dL [facility] RDW 15.0(H) 11.5 - 14.5 % [facility] MPV 9.9 8.4 - 12.0 fL [facility] NRBC 0.00 0.00 /100 WBCs [facility] ABSOLUTE NRBC 0.00 0.00 K/uL [facility] Blood 01/19/2025 11:3 6 AM EDT 01/19/2025 11:50 AM EDT Marcella Simmons MD LAB BLOOD BKR ORDERABLES F inal Result Performing Organization Address [facility]/ZIP Co de Phone Number [address] [address] * C-Reactive Protein (01/19/2025 11:36 AM EDT) C REACTIVE PROTEIN <3.0 0.0 - 4.0 mg/L [facility] Blood 01/19/2025 11:3 6 AM EDT 01/19/2025 11:50 AM EDT Marcella Simmons MD LAB BLOOD BKR ORDERABLES F inal Result Performing Organization Address City/[facility]/ZIP Co de Phone Number [address] [address] * TSH (01/19/2025 11:36 AM EDT) TSH 1.79 0.27 - 4.20 uIU/mL [facility] Blood 01/19/2025 11:3 6 AM EDT 01/19/2025 11:50 AM EDT Marcella Simmons MD LAB BLOOD BKR ORDERABLES F inal Result Performing Organization Address [facility] Co de Phone Number [facility] [address] [place] [address] * Vitamin B1 (thiamine) (01/19/2025 11:36 AM EDT) Pathologist [facility] VITAMIN B1 88 70 - 180 nmol/L [facility] Comment: (NOTE) ADDITIONAL INFORMATION This test was developed and its performance characteristics determined by [facility] in a manner consistent with CLIA requirements. This test has not been cleared or approved by the U.S. Food and Drug Administration. Blood 01/19/2025 11:3 6 AM EDT 01/19/2025 11:50 AM EDT us Marcella Simmons MD LAB BLOOD ORDERABLES Final Result Performing Organization Address [facility] Co de Phone Number [facility] [address] [place] [address] * (ABNORMAL) Parathyroid hormone (PTH) (01/19/2025 11:36 AM EDT) PARATHYROID HORMONE 133(H) 15 - 65 pg/mL [facility] Blood 01/19/2025 11:3 6 AM EDT 01/19/2025 11:50 AM EDT us Marcella Simmons MD LAB BLOOD BKR ORDERABLES F inal Result Performing Organization Address [facility]/ZIP Co de Phone Number [address] [address] * Hemoglobin A1c (01/19/2025 11:36 AM EDT) [facility] HEMOGLOBIN A1C 5.5 4.3 - 5.8 % [facility] Blood 01/19/2025 11:3 6 AM EDT 01/19/2025 11:50 AM EDT Marcella Simmons MD LAB BLOOD BKR ORDERABLES F inal Result Performing Organization Address [facility]/ZIP Co de Phone Number [address] [address] * Vitamin B12 (01/19/2025 11:36 AM EDT) [facility] VITAMIN B12 1,114 232 - 1,245 pg/mL [facility] Blood 01/19/2025 11:3 6 AM EDT 01/19/2025 11:50 AM EDT us Marcella Simmons MD LAB BLOOD BKR ORDERABLES F inal Result Performing Organization Address [facility] Co de Phone Number [address] [address] * (ABNORMAL) Lipid panel (01/19/2025 11:36 AM EDT) [facility] HDL 48 mg/dL [facility] Comment: Interpretation <40 mg/dL: Low HDL cholesterol (major risk factor for CHD) Greater than or equal to 60 mg/dL: High HDL cholesterol ( negative risk factor for CHD) HDL - cholesterol is affected by a number of factors, e.g. smoking, excerise, hormones, sex and age. CHOLESTEROL 149 0 - 240 mg/dL [facility] TRIGLYCERIDES 103 30 - 160 mg/dL [facility] LDL 80 50 - 129 mg/dL [facility] Comment: LDL levels in terms of risk for coronary heart disease: <100 mg/dL: Optimal 100-129 mg/dL: Near or above optimal 130-159 mg/dL: Borderline high 160-189 mg/dL: High >190 mg/dL: Very High CARDIAC RISK RATIO 3.1(L) 3.3 - 4.4 C [facility] Blood 01/19/2025 11:3 6 AM EDT 01/19/2025 11:50 AM EDT us Marcella Simmons MD LAB BLOOD BKR ORDERABLES F inal Result [facility] [address] [place] [address] from Last 3 Months [facility] [place] [facility] [place] [facility] [place] [facility] Care Teams Motor Route Carrier Relationship Specialty Start Date End Date Gage Diallo MD [address] [place] [address] [place] [address] PCP - General Internal Medicine 12/26/21 Additional Source Comments The information contained in this document represents components of the legal health record. It is not the complete legal health record.[facility]
--- OUTSIDE RECORDS SUMMARY | 2025-04-19 07:22 | XMS_ITS | Clinical Summary ---
Author Organization [facility] Address [address] [place] [address] Phone Care Team Providers Care Dorr Operator Name Role Phone Mi Martins MD Primary Care Provider [phone] Allergies Active Allergy Reactions Criticality Noted Date [...] Encounters Date Type Department Care Team Description 03/24/2025 8:14 AM EST - 03/24/2025 11:59 PM EST Hospital Encounter [facility] Xray [address] [place] [phone] Class 2 severe obesity due to excess calories with serious comorbidity and body mass index (BMI) of 37.0 to 37.9 in adult; Gastroesophageal reflux disease without esophagitis; Status post sleeve gastrectomy Discharge Disposition: Home or Self Care 03/17/2025 2:35 PM EST Lab Draw Station - 175 [facility] [address] [facility] [address] [place] [phone] S/P bariatric surgery 03/17/2025 1:30 PM EST Office Visit Bariatric Surgery - [place] [address] [phone] Fahad Turner MD Class 2 severe obesity [...] Care Team (Late st Contact Info) Description 04/19/2025 10:30 AM EST Appointment [facility] Endoscopy [address] [place] [phone] Fahad Turner MD [address] [place] [address] Nancy Balderas CRNA [address] [place] [phone] Gosia Pena MD [address] [place] [id number] 06/04/2025 11:00 AM EST Consult Bariatric Surgery - [place] 175 [address] [place] [address] Mi Juarez, RD 175 [facility] [address] [place] [address] Health Maintenance Due Date Last Done Comments [...] ed Goal Care Plan Autogenerated Problem No Imer Farias Procedures Procedure Name Priority Date/Time Associated Diagnosis Comments XR UGI W AIR CONTRAST Routine 03/24/2025 9:33 AM EST Class 2 severe obesity due to excess calories with serious comorbidity and body mass index (BMI) of 37.0 to 37.9 in adult Gastroesophageal reflux disease without esophagitis Status post sleeve gastrectomy COMPREHENSIVE METABOLIC PANEL Routine 03/17/2025 2:31 PM EST S/P bariatric surgery COMPLETE BLOOD COUNT Routine 03/17/2025 2:31 PM EST S/P bariatric surgery HEMOGLOBIN A1C Routine 03/17/2025 2:31 PM EST S/P bariatric surgery VITAMIN B12 AND FOLATE Routine 2:31 PM EST S/P bariatric surgery IRON Routine 03/17/2025 2:31 PM EST S/P bariatric surgery from Last 3 Months Results * XR UGI w Air Contrast (03/24/2025 9:33 AM EST) Anatomical Region Laterality Modality Body Radiographic Ronit ging 03/24/2025 11:1 5 AM EST Impressions 03/24/2025 11:22 AM EST Tiny, sliding, axial hiatal hernia without visualized gastroesophageal reflux. Otherwise, unremarkable double contrast upper GI exam status post gastric sleeve. -------- FINAL REPORT -------- Dictated By: Macie Berg Dictated Date: 03/24/2025 11:15 ET Assigned Physician: Prashanth Castillo Reviewed and Electronically Signed By: Prashanth Castillo Signed Date: 03/24/2025 11:22 ET Workstation ID: [id number] Transcribed By: Self Edit Transcribed Date: 03/24/2025 11:18 ET Resident/PA/COMPUTER ENGINEER: Macie Berg Narrative 03/24/2025 11:22 AM EST FINDINGS: Double contrast UGI performed. COMPARISON: None. HISTORY: Patient is a 35-year-old female with history of gastric sleeve 2019. GERD, nausea. MACHINE SAND MIXER radiographs: Plant Operations Engineer AP radiograph of the abdomen obtained. Bowel gas pattern is nonobstructive. Visualized costophrenic angles are clear. Surgical clips are noted in the left upper quadrant consistent with history of gastric surgery. Osseous structures are unremarkable. FINDINGS: Effervescent crystals were administered orally. Thick and thin barium was then administered orally under fluoroscopic control. Esophagus: Normal distensibility, motility and mucosal pattern. There is no evidence of obstruction. There is a tiny, sliding, axial hiatal hernia without visualized gastroesophageal reflux. Stomach: Gastric anatomy is consistent with history of sleeve. Normal distensibility and motility. There is no evidence of stenosis. Prompt passage of contrast from the stomach into the duodenal bulb and sweep. No gastric mass or ulceration. Visualization of proximal small bowel is within normal limits. Gastroesophageal reflux: Not visualized DAP: 14.29 Gycm^2 Procedure Note Prashanth Castillo MD - 03/24/2025 FINDINGS: Double contrast UGI performed. COMPARISON: None. HISTORY: Patient is a 35-year-old female with history of gastric [id number]. GERD, nausea. MACHINE SAND MIXER radiographs: Plant Operations Engineer AP radiograph of the abdomen obtained. Bowel gaspattern is nonobstructive. Visualized costophrenic angles are clear.Surgical clips are noted in the left upper quadrant consistent withhistory of gastric surgery. Osseous structures are unremarkable. FINDINGS: Effervescent crystals were administered orally. Thick and thinbarium was then administered orally under fluoroscopic control. Esophagus: Normal distensibility, motility and mucosal pattern. There isno evidence of obstruction. There is a tiny, sliding, axial hiatal herniawithout visualized gastroesophageal reflux. Stomach: Gastric anatomy is consistent with history of sleeve. Normaldistensibility and motility. There is no evidence of stenosis. Promptpassage of contrast from the stomach into the duodenal bulb and sweep. Nogastric mass or ulceration. Visualization of proximal small bowel iswithin normal limits. Gastroesophageal reflux: Not visualized DAP: 14.29 Gycm^2 IMPRESSION: Tiny, sliding, axial hiatal hernia without visualized gastroesophagealreflux. Otherwise, unremarkable double contrast upper GI exam status postgastric sleeve. -------- FINAL REPORT -------- Dictated By: Macie Berg Dictated Date: 03/24/2025 11:15 ET Assigned Physician: Prashanth Castillo Reviewed and Electronically Signed By: Prashanth Castillo Signed Date: 03/24/2025 11:22 ET Workstation ID: [id number] Transcribed By: Self Edit Transcribed Date: 03/24/2025 11:18 ET Resident/PA/COMPUTER ENGINEER: Macie Berg Fahad Tunrer MD IMG FLUOROSCOPY PROCEDURES Final Result * (ABNORMAL) Vitamin B12 and folate (03/17/2025 2:31 PM EST) [facility] Vitamin B-12 1,251(H) 250 - 900 pcg/mL LAB CHEMISTRY METHOD 03/17/2025 6:57 PM EST [facility] LAB Folate 7.6 2.8 - 17.0 ng/ml LAB CHEMISTRY METHOD 03/17/2025 6:57 PM EST [facility] LAB Blood Venous blood specimen / Unknown Venipuncture / Unknown 03/17/2025 2:31 PM EST 03/17/2025 2:31 PM EST Fahad Turner MD LAB BLOOD ORDERABLES Final Result [facility] [address] [place] [address], [place] [phone] * (ABNORMAL) Complete blood count (03/17/2025 2:31 PM EST) [facility] WBC 9.5 4.8 - 10.8 K/mcL LAB HEMETOLOGY METHOD 03/17/2025 8:19 PM EST [facility] LAB RBC 4.90(H) 3.80 - 4.80 M/[facility] LAB HEMETOLOGY METHOD 03/17/2025 8:19 PM EST [facility] LAB Hemoglobin 11.1(L) 11.5 - 16.0 g/dL LAB HEMETOLOGY METHOD 03/17/2025 8:19 PM EST [facility] Hematocrit 39.0 35.0 - 47.0 % LAB HEMETOLOGY METHOD 03/17/2025 8:19 PM EST [facility] LAB MCV 80.2 79.0 - 98.0 FL LAB HEMETOLOGY METHOD 03/17/2025 8:19 PM [facility] LAB MCH 22.8(L) 27.0 - 32.0 pcg LAB HEMETOLOGY METHOD 03/17/2025 8:19 PM EST [facility] MCHC 28.5(L) 32.0 - 37.0 g/dL LAB HEMETOLOGY METHOD 03/17/2025 8:19 PM [facility] RDW 18.4(H) 11.0 - 15.0 % LAB HEMETOLOGY METHOD 03/17/2025 8:19 PM [facility] LAB Platelets 434(H) 130 - 400 K/mcL LAB HEMETOLOGY METHOD 03/17/2025 8:19 PM EST [facility] MPV 9.1 7.0 - 11.0 FL LAB HEMETOLOGY METHOD 03/17/2025 8:19 PM EST [facility] NRBC 0.0 <1.0 % LAB HEMETOLOGY METHOD 03/17/2025 8:19 PM [facility] NRBC Absolute 0.00 <0.10 K/mcL LAB HEMETOLOGY METHOD 03/17/2025 8:19 PM [facility] Blood Venous blood specimen / Unknown Venipuncture / Unknown 03/17/2025 2:31 PM EST 03/17/2025 2:31 PM EST us Fahad Turner MD LAB BLOOD ORDERABLES Final Result [facility] [address] [place] [address], * (ABNORMAL) Iron (03/17/2025 2:31 PM EST) [facility] Iron 29(L) 40 - 150 mcg/dL LAB CHEMISTRY METHOD 03/17/2025 6:27 PM EST [facility] Blood Venous blood specimen / Unknown Venipuncture / Unknown 03/17/2025 2:31 PM EST 03/17/2025 2:31 PM EST Fahad Turner MD LAB BLOOD ORDERABLES Final Result Performing Organization Address [facility]/ZIP Co de Phone Number [facility] [address] [place] [address], [place] [phone] * Hemoglobin A1c (03/17/2025 2:31 PM EST) [facility] Hemoglobin A1C 5.4 <6.5 % LAB CHEMISTRY METHOD 03/17/2025 9:58 PM EST [facility] Mean Bld Glu Estim. 108 mg/dL LAB CHEMISTRY METHOD 03/17/2025 9:58 PM EST [facility] Blood Venous blood specimen / Unknown Venipuncture / Unknown 03/17/2025 2:31 PM EST 03/17/2025 2:31 PM EST Fahad Turner MD LAB BLOOD ORDERABLES Final Result Performing Organization Address [facility]/ZIP Co de Phone Number [facility] [address] [place] [address], [place] [phone] * Comprehensive metabolic panel (03/17/2025 2:31 PM EST) [facility] Sodium 137 133 - 145 mmol/L LAB CHEMISTRY METHOD 03/17/2025 6:27 PM EST [facility] Potassium 3.9 3.5 - 5.5 mmol/L LAB CHEMISTRY METHOD 03/17/2025 6:27 PM EST [facility] Chloride 105 96 - 110 mmol/L LAB CHEMISTRY METHOD 03/17/2025 6:27 PM EST [facility] CO2 26 21 - 32 mmol/L LAB CHEMISTRY METHOD 03/17/2025 6:27 PM [facility] Anion Gap 6 3 - 11 LAB CHEMISTRY METHOD 03/17/2025 6:27 PM [facility] Glucose 96 70 - 100 mg/dL LAB CHEMISTRY METHOD 03/17/2025 6:27 PM [facility] BUN 9 5 - 25 mg/dL LAB CHEMISTRY METHOD 03/17/2025 6:27 PM [facility] Creatinine 0.75 0.50 - 1.10 mg/dL LAB CHEMISTRY METHOD 03/17/2025 6:27 PM [facility] eGFR 106 >=60 mL/min/1. 73m2 LAB CHEMISTRY METHOD 03/17/2025 6:27 PM [facility] Comment:Calculation based on the Chronic Kidney Disease Epidemiology Collaboration (CKD-EPI) equation refit without adjustment for race. BUN/Creatinine Ratio 12.0 LAB CHEMISTRY METHOD 03/17/2025 6:27 PM [facility] Calcium 9.3 8.5 - 10.5 mg/dL LAB CHEMISTRY METHOD 03/17/2025 6:27 PM [facility] AST (SGOT) 11 10 - 42 unit/L LAB CHEMISTRY METHOD 03/17/2025 6:27 PM [facility] ALT (SGPT) 23 10 - 60 unit/L LAB CHEMISTRY METHOD 03/17/2025 6:27 PM [facility] Alkaline Phosphatase 74 42 - 121 unit/L LAB CHEMISTRY METHOD 03/17/2025 6:27 PM [facility] Total Protein 7.8 6.0 - 8.0 g/dL LAB CHEMISTRY METHOD 03/17/2025 6:27 PM [facility] Albumin 3.9 3.2 - 5.0 g/dL LAB CHEMISTRY METHOD 03/17/2025 6:27 PM [facility] Total Bilirubin 0.4 0.0 - 1.4 mg/dL LAB CHEMISTRY METHOD 03/17/2025 6:27 PM EST [facility] Blood Venous blood specimen / Unknown Venipuncture / Unknown 03/17/2025 2:31 PM EST 03/17/2025 2:31 PM EST us Fahad Turner MD LAB BLOOD ORDERABLES Final Result [facility] [address] [place] [address], from Last 3 Months Additional Health Concerns Active Problems Noted Date Diagnosed Date Autogenerated Problem 03/25/2025 Insurance [facility] Care Teams Dorr Operator Relationship Specialty Start Date End Date Mi Martins MD [address] [place] [address] PCP - General Internal Medicine 01/22/25
--- NOTE | 2025-04-19 07:25 | A.OFFVIS_ITS ---
Vital Signs 04/19/25 07:48 Height 5 ft 3 in Weight 216 lb BMI 38.3 BP 136/92 H Intake Visit Reasons: Mirena insertion Race Engine Builder Required: No Information Interpreted: non-clinical & clinical Inside Sales Supervisor: Inside Sales Supervisor Present ([place]) Accompanied by: Self / Same As Patient Allergies clindamycin (CLINDAMYCIN) Allergy (Intermediate, Verified 04/19/25 07:48) HIVES Clindamycin Allergy (Unknown, Uncoded 04/19/25 07:48) Hives Is last menstrual period known: Yes Last menstrual period: 04/16/25 HPI Comments Details: Presenting for Mirena IUD insertion [facility] Medical History GERD (gastroesophageal reflux disease) Hypertension Work-related stress Generalized anxiety disorder ADHD Severe obesity Surgical History Hx of gastric bypass Hx of tubal ligation Family History Maternal Aunt Breast cancer Family/Other Breast cancer Father Lung cancer HTN (hypertension) Maternal Grandfather Lung cancer Mother HTN (hypertension) Paternal Grandmother Diabetes Social History Household Members: Spouse and Children Housing: House Alcohol intake: current Alcohol intake frequency: holidays/special occasions only Patient Tobacco Use Status: Never used Tobacco e-Cigarette/Vaping Use: Never Used Current occupational status: employed 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 Sexual orientation: Straight/Heterosexual Gender identity: Female Female Reproductive History Menstrual Date of last menstrual period: 04/16/25 control method: progestin IUCD and permanent sterilization Review of Systems Const All systems reviewed & are unremarkable except as noted in HPI and below Reports as per HPI and Reports no additional complaints GI Reports no additional complaints Reports no additional complaints Office Procedures IUD Insert/Removal Details Details: The patient is presenting for Mirena IUD insertion Urine test was done in the office and was negative; All the contraindications were excluded. The following possible complications were discussed with the patient: Intrauterine , Ectopic , Sepsis, Pelvic Infection, Irregular Bleeding and Amenorrhea, Perforation, Expulsion, Ovarian Cysts, Breast Cancer, The following adverse effects were discussed with the patient: alteration of menstrual bleeding pattern, including: unscheduled uterine bleeding decreased uterine bleeding increased scheduled uterine bleeding female genital tract bleeding ,amenorrhea , genital discharge , vulvovaginitis , breast pain , benign ovarian cyst and associated complications , dysmenorrhea , Gastrointestinal disorders abdominal/pelvic pain, headache/migraine , back pain , acne , depression Alternative options were discussed with the patient including but not limited: control pills, patch, NuvaRing, Depo-medroxyprogesterone acetate, Nexplanon, copper IUD, sterilization, vasectomy, others The procedure was explained in detail to patient , at the end patient signed the informed consent obtained. A no touch technique was used throughout the procedure. A speculum was placed into vagina and cervix was cleaned with betadine). A tenaculum was placed. A plastic sound was advanced through the external and internal os until it reached the fundus of the uterus, the depth was 8 cm. The sound was then withdrawn. The IUD was loaded in a sterile manner and advanced into position. The string was visualized and cut to 3 cm. Tenaculum site hemostatic. All instruments removed from vagina. Patient tolerated the procedure well. NO complications were noted. Patient was instructed to call for fever over 100.4, significant pain unrelieved by Motrin, IUD expulsion, heavy bleeding, or abnormal discharge. In addition, the following clinical considerations were discussed with the patient to call for removal: A stroke or heart attack ,Very severe or migraine headaches ,Unexplained fever ,Yellowing of the skin or whites of the eyes, as these may be signs of serious liver problems , or suspected , Pelvic pain or pain during sex ,HIV positive seroconversion in herself or her partner , Possible exposure to sexually transmitted infections Unusual vaginal discharge or genital sores , severe vaginal bleeding or bleeding that lasts a long time, or if she misses a menstrual period, Inability to feel Mirena's threads Counseled the patient that the IUD does not protect against STI's, recommended use of condoms for the first 7 days post insertion and explained to the patient that condoms are recommended for patients at risk for sexually transmitted infections. Informed the patient that Mirena IUD is FDA approved for 8 years for contraception for 5 years for the treatment of heavy menses Instructed the patient to schedule a Follow up appointment in 4 to 6 weeks following insertion. This note was generated with a voice recognition program. Some errors may have been overlooked during the review of this note. Sometimes these errors may affect the content or meaning of a given sentence. 38929-OIN Insertion Procedure code (CPT) selection complete Office Meds Mirena 21 mcg/24 hr (up to 8 years) 52 mg intrauterine device Performing Provider: Boyd Solares MD Performing Location: [facility] Documented (not given) by: Boyd Solares MD on 04/19/25 07:47 Dose Route Admin Location Dispensed Lot Number Expiration Date [facility] [place] Head Strength And Conditioning Coach 1 device intrauterine ea Total Dispensed Waste n/a n/a Assessment & Plan Assessment & Plan (1) Abnormal uterine bleeding (AUB): Code(s): N93.9 - Abnormal uterine and vaginal bleeding, unspecified Category: Medical Plan: Mirena IUD inserted, see procedure note Orders: Orders AMB IUD Insertion/Removal - Practice Supplied Today N93.9 - Abnormal uterine and vaginal bleeding, unspecified Medications: New Mirena (levonorgestrel) 1 device intrauterine ONCE 1 ea 0RF IUD insertion NS N93.9 - Abnormal uterine and vaginal bleeding, unspecified Coding Level of Care Code Procedure Only Diagnoses Abnormal uterine bleeding (AUB) N93.9 CPT Codes Details - CPT: 89582-UGG Insertion ([id number])
[2025-04-19 07:48] VITALS: BP 136/92; BMI 38.3
== END 2025-04-19 07:49 | disposition home or self-care (01) ==
LOC: HO.HWS 07:20
PROVIDERS: PCP Physician Assistant; Visit Provider Obstetrics & Gynecology
DX: Z30.430 Encounter for insertion of intrauterine contraceptive device (principal); N93.9 Abnormal uterine and vaginal bleeding, unspecified
CPT/HCPCS: 58300

== ENCOUNTER → 2025-04-19 07:20 | Outpatient (BNVA) | payer OTHER, SELFPAY | PROVIDERS: PCP Physician Assistant; Visit Provider Obstetrics & Gynecology | DX: Z30.430 Encounter for insertion of intrauterine contraceptive device (principal); Z32.02 Encounter for pregnancy test, result negative | CPT/HCPCS: 58300; 81025; J7298 ==